=== PATIENT | female | born 1935 | race Caucasian/White ===

== ENCOUNTER 2021-10-24 13:05 | Inpatient (IN) ==
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
[2021-10-24] MEDS ORDERED: diphenhydrAMINE 50 MG/ML VIAL IV PRN (14:39)
[2021-10-24] MEDS ORDERED: methylPREDNISolone SOD SUCC 40 MG/ML VIAL IV PRN (14:39)
[2021-10-24] MEDS ORDERED: ALBUTEROL SULFATE 200 PUFF INHALER INH PRN (14:39)
[2021-10-24] MEDS ORDERED: EPINEPHrine 1 MG/ML AMPUL SQ PRN (14:39)
[2021-10-24] MEDS ORDERED: CASIRIVIMAB/IMDEVIMAB 10 ML in 0.9 % SODIUM CHLORIDE 50 ML IV SCH (14:45)
[2021-10-24 14:50] LABS: Basophils # (Auto) 0.01 K/mcL (0.00-0.30); Basophils % (Auto) 0.2 % (0.0-2.0); Eosinophils # (Auto) 0.06 K/mcL (0.00-0.70); Hematocrit 34.5 % (34.1-44.9); Hemoglobin 10.8 g/dL (11.2-15.7); Lymphocytes % (Auto) 22.7 % (15.5-49.0); Mean Cell Volume 88.2 fL (80.0-100.0); Mean Corpuscular HGB Conc 31.3 g/dL (31.0-36.0); Mean Platelet Volume 10.6 fL (7.4-10.4); Monocytes # (Auto) 0.34 K/mcL (0.10-0.90); Monocytes % (Auto) 5.9 % (1.0-12.0); Neutrophils % (Auto) 70.2 % (38.0-78.0); Platelet Count 279 K/mcL (140-440); RBC 3.91 M/mcL (3.59-5.38); Red Cell Distribution Width 15.9 % (11.5-14.5); WBC 5.7 K/mcL (4.5-11.0)
--- NOTE | 2021-10-24 15:15 | XRay Report ---
HISTORY: Short of breath, stage IV colon cancer, smoker, cough FINDINGS: Subtle increased interstitial lung markings are present in both lower lobes. This may be residual inflammation or mild pulmonary fibrosis. The moderate diffuse alveolar infiltrates seen in both lungs on the recent chest x-ray done on 10/13/21 have otherwise resolved. There is no evidence of an underlying mass. No congestive heart failure or pleural effusion are present. The heart size is normal and appears smaller today. There is a Port-A-Cath placed through the left internal jugular vein into the superior vena cava. There is no widening of the mediastinum. No adenopathy is detected IMPRESSION: Near complete resolution of previously seen bilateral infiltrates with residual minor inflammation or fibrosis in both lung bases No evidence of metastasis Interpreted and Authenticated by: Bernabe Prieto 10/24/21
[2021-10-24 15:19] LABS: ALT/SGPT < 5 U/L (<40); AST/SGOT 23 U/L (<32); Albumin 2.8 gm/dL (3.2-5.2); Albumin/Globulin Ratio 0.9 (1.0-2.3); Alkaline Phosphatase 118 U/L (39-117); Bilirubin,Total 0.2 mg/dL (0.1-1.0); Blood Urea Nitrogen 18 mg/dL (8-23); Calcium 8.5 mg/dL (8.6-10.4); Carbon Dioxide 24 mmol/L (22-30); Chloride 100 mmol/L (96-108); Globulin 3.1 gm/dL (2.2-3.7); Glomerular Filtration Rate 38; Glucose 111 mg/dL (70-105)
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
[2021-10-24] MEDS ORDERED: ZOLPIDEM 5 MG TABLET PO PRN (20:02)
[2021-10-24] MEDS ORDERED: ONDANSETRON 4 MG/2 ML VIAL IV PRN (20:02)
[2021-10-24] MEDS ORDERED: REMDESIVIR 200 MG in 0.9 % SODIUM CHLORIDE 250 ML IV ONE (20:02)
[2021-10-24] MEDS ORDERED: cefTRIAXone 1 GM in DEXTROSE 5% IN WATER 50 ML IV SCH (20:02)
[2021-10-24] MEDS ORDERED: DEXTROSE 50% 50 ML VIAL IV PRN (20:02)
[2021-10-24] MEDS ORDERED: DEXTROSE 31 GM ORAL.SUSP PO PRN (20:02)
[2021-10-24] MEDS ORDERED: FENTANYL 25 MCG/HR TRANSDERMA SCH (20:02)
[2021-10-24] MEDS ORDERED: IPRATROPIUM/ALBUTEROL 3 ML AMPUL.NEB NEB PRN (20:02)
[2021-10-24 20:14] LABS: Appearance,Urine CLEAR (Clear); Bilirubin,Urine Negative (Negative); Color,Urine STRAW; Culture Indicated,Urine No; Glucose,Urine (UA) Negative (Negative); Ketones,Urine Negative (Negative); Leukocyte Esterase,Urine Negative /uL (Negative); Nitrate,Urine Negative (Negative); Protein,Urine Negative (Negative); Specific Gravity,Urine 1.003 (1.000-1.035); Urine Blood Negative (Negative); Urobilinogen,Urine Negative
[2021-10-24 20:31] LABS: C-Reactive Protein 7.9 mg/dL (0.03-0.80)
[2021-10-24 20:42] LABS: Ferritin 78.6 ng/mL (30.0-400.0)
[2021-10-24] MEDS ORDERED: [UNRECOGNIZED DRUG - REMARK] INTRANASAL SCH (21:00)
[2021-10-24] MEDS ORDERED: cefTRIAXone 1 GM VIAL IV ONE (21:00)
[2021-10-24 21:03] LABS: INR 1.1 (0.9-1.1); Prothrombin Time 14.2 sec (11.9-14.5)
[2021-10-24] MEDS: 0.9 % SODIUM CHLORIDE 10 ML SYRINGE IV SCH (21:45)
[2021-10-24] MEDS: INSULIN LISPRO 1 UNIT/0.01 ML UNIT SQ SCH ×2 (22:12→22:13)
[2021-10-24] MEDS: INSULIN 70/30, HUMAN 1 UNIT/0.01 ML UNIT SQ SCH (22:13)
[2021-10-24] MEDS: HEPARIN 5,000 UNIT/ML VIAL SQ SCH (22:13)
[2021-10-24 22:32] LABS: Hemoglobin A1C 11.8 % Hgb (4.0-6.0)
[2021-10-24] MEDS: CARBIDOPA/LEVODOPA 25/100 TABLET PO SCH (22:43)
[2021-10-24] MEDS: COLCHICINE 0.6 MG CAPSULE PO SCH (22:43)
[2021-10-24] MEDS: PRAZOSIN 1 MG CAPSULE PO SCH (22:43)
[2021-10-24] MEDS: PRAMIPEXOLE 1 MG TABLET PO SCH (22:44)
[2021-10-24] MEDS: SENNOSIDES 1 TABLET PO SCH (22:44)
[2021-10-24] MEDS: DOCUSATE SODIUM 100 MG CAPSULE PO SCH (22:44)
[2021-10-24] MEDS: METHOCARBAMOL 500 MG TABLET PO PRN (22:44)
[2021-10-24] MEDS: NICOTINE 14 MG PATCH TOPICAL SCH (22:45)
[2021-10-24] MEDS: CLOTRIMAZOLE CRM 1% 1 DOSE TUBE TOPICAL SCH (22:46)
[2021-10-24] MEDS: POTASSIUM CHLORIDE 20 MEQ TABLET PO SCH (22:46)
[2021-10-25] MEDS: 0.9 % SODIUM CHLORIDE 10 ML SYRINGE IV SCH ×3 (04:18→20:14)
[2021-10-25 06:47] LABS: Basophils # (Auto) 0.01 K/mcL (0.00-0.30); Basophils % (Auto) 0.2 % (0.0-2.0); Eosinophils # (Auto) 0 K/mcL (0.00-0.70); Eosinophils % (Auto) 0 % (0.0-7.0); Hematocrit 35.7 % (34.1-44.9); Hemoglobin 10.7 g/dL (11.2-15.7); Lymphocytes # (Auto) 0.56 K/mcL (1.50-4.80); Lymphocytes % (Auto) 13.6 % (15.5-49.0); Mean Cell Volume 90.2 fL (80.0-100.0); Mean Platelet Volume 10.9 fL (7.4-10.4); Monocytes # (Auto) 0.13 K/mcL (0.10-0.90); Monocytes % (Auto) 3.1 % (1.0-12.0); Neutrophils % (Auto) 83.1 % (38.0-78.0); Platelet Count 271 K/mcL (140-440); RBC 3.96 M/mcL (3.59-5.38); Red Cell Distribution Width 15.6 % (11.5-14.5); WBC 4.1 K/mcL (4.5-11.0)
[2021-10-25 07:02] LABS: ALT/SGPT < 5 U/L (<40); AST/SGOT 22 U/L (<32); Albumin 2.5 gm/dL (3.2-5.2); Albumin/Globulin Ratio 0.8 (1.0-2.3); Alkaline Phosphatase 111 U/L (39-117); Bilirubin,Total < 0.2 mg/dL (0.1-1.0); Blood Urea Nitrogen 20 mg/dL (8-23); Calcium 8.3 mg/dL (8.6-10.4); Carbon Dioxide 24 mmol/L (22-30); Chloride 97 mmol/L (96-108); Globulin 3.2 gm/dL (2.2-3.7); Glomerular Filtration Rate 46; Glucose 341 mg/dL (70-105); Phosphorous 4.1 mg/dL (2.5-4.5)
[2021-10-25] MEDS: OMEPRAZOLE 20 MG CAPSULE PO SCH (07:09)
[2021-10-25] MEDS: POTASSIUM CHLORIDE 20 MEQ TABLET PO SCH ×2 (07:09→17:39)
[2021-10-25] MEDS: INSULIN LISPRO 1 UNIT/0.01 ML UNIT SQ SCH ×4 (07:09→20:15)
[2021-10-25] MEDS: INSULIN 70/30, HUMAN 1 UNIT/0.01 ML UNIT SQ SCH (07:10)
[2021-10-25] MEDS: cefTRIAXone 1 GM VIAL IV SCH (09:13)
[2021-10-25] MEDS: DEXAMETHASONE 4 MG TABLET PO SCH (09:13)
[2021-10-25] MEDS: HEPARIN 5,000 UNIT/ML VIAL SQ SCH ×2 (09:13→20:13)
[2021-10-25] MEDS: ALLOPURINOL 300 MG TABLET PO SCH (09:14)
[2021-10-25] MEDS: ESCITALOPRAM 20 MG TABLET PO SCH (09:14)
[2021-10-25] MEDS: COLCHICINE 0.6 MG CAPSULE PO SCH ×2 (09:14→20:10)
[2021-10-25] MEDS: TORSEMIDE 10 MG TABLET PO SCH (09:14)
[2021-10-25] MEDS: LEVOTHYROXINE 25 MCG TABLET PO SCH (09:14)
[2021-10-25] MEDS: LORATADINE 10 MG TABLET PO SCH (09:14)
[2021-10-25] MEDS: SIMVASTATIN 10 MG TABLET PO SCH (09:15)
[2021-10-25] MEDS: MULTIVIT,THER IRON,CA,FA & MIN 1 TABLET PO SCH (09:16)
[2021-10-25] MEDS: FLUTICASONE PROPIONATE SPRAY.NAS NS SCH (09:16)
[2021-10-25] MEDS: ASPIRIN 81 MG TAB.CHEW PO SCH (09:16)
[2021-10-25] MEDS: hydrALAZINE 25 MG TABLET PO SCH (09:16)
[2021-10-25] MEDS: DOCUSATE SODIUM 100 MG CAPSULE PO SCH ×2 (09:16→20:09)
[2021-10-25] MEDS: MUPIROCIN OINT 2% 22GM TOPICAL SCH (09:16)
[2021-10-25] MEDS: CARBIDOPA/LEVODOPA 25/100 TABLET PO SCH ×3 (09:16→20:09)
[2021-10-25] MEDS: LISINOPRIL 5 MG TABLET PO SCH (09:16)
[2021-10-25] MEDS: CLOTRIMAZOLE CRM 1% 1 DOSE TUBE TOPICAL SCH ×2 (09:16→20:15)
[2021-10-25] MEDS ORDERED: DEXTROSE 31 GM ORAL.SUSP PO PRN (11:44)
[2021-10-25] MEDS ORDERED: DEXTROSE 50% 50 ML VIAL IV PRN (11:44)
[2021-10-25] MEDS ORDERED: PRAMIPEXOLE 1 MG TABLET PO SCH (11:45)
--- NOTE | 2021-10-25 12:38 | Internal Med Progress Note ---
SUBJECTIVE Subjective Patient information: Note initiated : 10/25/21 at 12:32 pm Service Date, if different from initiated Date: [] Patient: Patsy Lam a 86 y/o F admitted on 10/24/21 for cough, fatigue,weakness, SOB. Chief Complaint: [] Interval history: Ms. Cherie Paula is a 86 year old F h/o stage IV colon cancer, T2DM, CHF , CKD3, JANET on CPAP, Parkinson's Disease, Gout, essential HTN, hypothyroidism, current cigarette smoking status, p/w 5 days history of shaking chills, runny nose, shortness of breath, and productive cough with clear sputum. She is vaccinated against CoVID pneumonia. She was in her usual state of health until 5 days ago when she started to experience shaking chills, runny nose, shortness of breath, and productive cough with clear sputum. In addition, she is complaining of dysuria and increased urinary frequency. Vital signs significant for oxygen desaturating to mid 80s on room air, with rest of the vital signs within normal limits. Labs significant for lack of leukocytosis with WBC 5.7. Serum Cr level 1.3, baseline 1.2. CXR showing near complete resolution of previously seen bilateral infiltrates with residual minor inflammation or fibrosis in both lung bases. 10/25: Afebrile overnight. Blood and urine cultures no growth to date. Currently on 3.5L/min oxygen. c/o improving SOB. c/o productive cough with white sputum. Denies chest pain. Denies wheezing. Denies fever, chills, or sweating. Denies anxiety. Denies dysuruia. Constitutional Vitals: Vital Signs Temp Pulse Resp BP Pulse Ox 36.2 C 57 L 17 157/78 95 10/25/21 11:40 10/25/21 11:40 10/25/21 11:40 10/25/21 11:40 10/25/21 11:40 Period Temp Pulse Resp BP Sys/Simmons Pulse Ox Last 24 Hr 36.0 C-37.0 C 57-81 16-20 96-163/46-82 84-98 Intake and Output 10/24/21 10/25/21 10/25/21 21:59 05:59 13:59 Intake Total 1000 1200 Output Total 1200 300 Balance -200 900 Weight 111.3 kg Intake & Output: Intake & Output 10/24/21 10/25/21 10/25/21 21:59 05:59 13:59 Intake Total 1000 1200 Output Total 1200 300 Balance -200 900 Weight 111.3 kg Intake: Oral 1000 1200 Output: Void Amount 1200 300 Other: Meal Breakfast Percent of Meal Consumed 100% Feeding Ability Independent Urine Appearance Clear Urine Color Bright Yellow Dark Yellow Urine Odor Normal Normal Stool Size Moderate Stool Color Brown Stool Consistency Formed # Bowel Movements 1 General appearance: cooperative, no acute distress and obese Head Head exam: Present atraumatic and normal inspection Eye Eye exam: Present normal appearance ENT ENT exam: Present mucous membranes moist, normal exam and normal external ear exam Additional comments: Nasal cannula in place Neck Neck exam: Present normal inspection Respiratory Respiratory exam: Present decreased breath sounds and rhonchi Cardiovascular Cardiovascular exam: Present normal rate and rhythm GI/Abdominal GI/Abdominal exam: Present normal bowel sounds Back Exam Back exam: Present normal inspection Neurological Exam Neurological exam: Present alert and oriented X3 Skin Skin exam: Present intact and warm OBJ DATA Labs CBC & Chem 7: 10/25/21 05:24 10/25/21 05:24 Labs: Abnormal Lab Results 10/25/21 10/25/21 10/24/21 05:24 05:24 14:23 WBC 4.1 L Hgb 10.7 L MCHC 30.0 L RDW 15.6 H MPV 10.9 H Neut % (Auto) 83.1 H Lymph % (Auto) 13.6 L Lymph # (Auto) 0.56 L Fibrinogen D-Dimer Creatinine Glucose 341 H Hemoglobin A1c 11.8 H Calcium 8.3 L Alkaline Phosphatase Lactate Dehydrogenase 256 H C-Reactive Protein 7.90 H Total Protein 5.7 L Albumin 2.5 L Albumin/Globulin Ratio 0.8 L 10/24/21 10/24/21 10/24/21 14:23 14:23 14:23 WBC Hgb 10.8 L MCHC RDW 15.9 H MPV 10.6 H Neut % (Auto) Lymph % (Auto) Lymph # (Auto) 1.30 L Fibrinogen 623 H D-Dimer 1.37 H Creatinine 1.3 H Glucose 111 H Hemoglobin A1c Calcium 8.5 L Alkaline Phosphatase 118 H Lactate Dehydrogenase C-Reactive Protein Total Protein Albumin 2.8 L Albumin/Globulin Ratio 0.9 L Meds: Medications Acetaminophen (Acetaminophen 325 Mg Tablet) 650 mg PO Q6HP PRN; Protocol PRN Reason: Per Pain Protocol/Fever > 101 Albuterol/Ipratropium (Ipratropium/Albuterol 3 Ml Ampul.Neb) 3 ml NEB Q4HRT PRN PRN Reason: Wheezing Allopurinol (Allopurinol 300 Mg Tablet) 300 mg PO QDAY [facility] Last Admin: 10/25/21 09:14 Dose: 300 mg Documented by: Aspirin (Aspirin 81 Mg Tab.Chew) 81 mg PO DAILY [facility] Last Admin: 10/25/21 09:16 Dose: 81 mg Documented by: Carbidopa/Levodopa (Carbidopa/Levodopa 25/100 Tablet) 1 tab PO TID [facility] Last Admin: 10/25/21 09:16 Dose: 1 tab Documented by: Ceftriaxone Sodium (Ceftriaxone 1 Gm Vial) 1 gm IV DAILY [facility] Last Admin: 10/25/21 09:13 Dose: 1 gm Documented by: Clotrimazole (Clotrimazole Crm 1% 1 Dose Tube) 1 dose TOPICAL BID [facility] Last Admin: 10/25/21 09:16 Dose: Not Given Documented by: Colchicine (Colchicine 0.6 Mg Capsule) 0.6 mg PO BID [facility] Last Admin: 10/25/21 09:14 Dose: 0.6 mg Documented by: Dexamethasone (Dexamethasone 4 Mg Tablet) 6 mg PO DAILY [facility] Last Admin: 10/25/21 09:13 Dose: 6 mg Documented by: Dextrose (Dextrose 50% 50 Ml Vial) 0 ml IV UD PRN PRN Reason: Hypoglycemia Diagnostic Test (Pha) (Accu-Chek 1 Each Strip) 1 each FS ACHS [facility] Last Admin: 10/25/21 11:57 Dose: 1 each Documented by: Docusate Sodium (Docusate Sodium 100 Mg Capsule) 100 mg PO BID [facility] Last Admin: 10/25/21 09:16 Dose: 100 mg Documented by: Escitalopram Oxalate (Escitalopram 20 Mg Tablet) 20 mg PO QDAY [facility] Last Admin: 10/25/21 09:14 Dose: 20 mg Documented by: Fluticasone Propionate (Fluticasone Propionate [place].Jose Raul) 2 spray NS QDAY [facility] Last Admin: 10/25/21 09:16 Dose: Not Given Documented by: Glucose (Dextrose 31 Gm Oral.Susp) 15 gm PO PRN PRN PRN Reason: Hypoglycemia Guaifenesin (Guaifenesin/Dextromethorphan Oral Honey) 10 ml PO Q4HP PRN PRN Reason: Cough Heparin Sodium (Porcine) (Heparin 5,000 Unit/Ml Vial) 5,000 unit SQ Q12 [facility] Last Admin: 10/25/21 09:13 Dose: 5,000 unit Documented by: Hydralazine HCl (Hydralazine 25 Mg Tablet) 25 mg PO QDAY [facility] Last Admin: 10/25/21 09:16 Dose: 25 mg Documented by: REMDESIVIR 100 mg/ Sodium (Chloride) 250 mls @ 500 mls/hr IV DAILY@1400 [facility] Stop: 10/28/21 14:29 Insulin Human Lispro (Insulin Lispro 1 Unit/0.01 Ml Unit) 0 unit SQ ACHS [facility]; Protocol Insulin Lispro Protam/Lispro Human (Insulin, 75/25 Npl/Lispro 1 Unit/0.01 Ml Unit) 25 unit SQ BIDAC [facility] Iron Carb/Multivit/[place]/Folic Acid (Multivit,Ther Iron,Ca,Fa & Min 1 Tablet) 1 tab PO DAILY [facility] Last Admin: 10/25/21 09:16 Dose: 1 tab Documented by: Levothyroxine Sodium (Levothyroxine 25 Mcg Tablet) 12.5 mcg PO QAMAC [facility] Last Admin: 10/25/21 09:14 Dose: 12.5 mcg Documented by: Lisinopril (Lisinopril 5 Mg Tablet) 5 mg PO QDAY [facility] Last Admin: 10/25/21 09:16 Dose: 5 mg Documented by: Loratadine (Loratadine 10 Mg Tablet) 10 mg PO QDAY [facility] Last Admin: 10/25/21 09:14 Dose: 10 mg Documented by: Methocarbamol (Methocarbamol 500 Mg Tablet) 500 mg PO Q8HP PRN PRN Reason: neck pain Last Admin: 10/24/21 22:44 Dose: 500 mg Documented by: Mupirocin (Mupirocin Oint 2% 22gm) 1 dose TOPICAL QDAY [facility] Last Admin: 10/25/21 09:16 Dose: Not Given Documented by: Nicotine (Nicotine 14 Mg Patch) 1 mg TOPICAL Q24H [facility] Last Admin: 10/24/21 22:45 Dose: Not Given Documented by: Omeprazole (Omeprazole 20 Mg Capsule) 20 mg PO ACB [facility] Last Admin: 10/25/21 07:09 Dose: 20 mg Documented by: Ondansetron HCl (Ondansetron 4 Mg/2 Ml Vial) 4 mg IV Q6HP PRN PRN Reason: Nausea And Vomiting Potassium Chloride (Potassium Chloride 20 Meq Tablet) 20 meq PO BIDCC [facility] Last Admin: 10/25/21 07:09 Dose: 20 meq Documented by: Pramipexole Dihydrochloride (Pramipexole 1 Mg Tablet) 1 mg PO [facility] Last Admin: 10/24/21 22:44 Dose: 1 mg Documented by: Prazosin HCl (Prazosin 1 Mg Capsule) 2 mg PO [facility] Last Admin: 10/24/21 22:43 Dose: 2 mg Documented by: Senna (Sennosides 1 Tablet) 2 tab PO [facility] Last Admin: 10/24/21 22:44 Dose: 2 tab Documented by: Simvastatin (Simvastatin 10 Mg Tablet) 5 mg PO QDAY [facility] Last Admin: 10/25/21 09:15 Dose: 5 mg Documented by: Sodium Chloride (0.9 % Sodium Chloride 10 Ml Syringe) 10 ml IV Q8 [facility] Last Admin: 10/25/21 04:18 Dose: 10 ml Documented by: Torsemide (Torsemide 10 Mg Tablet) 100 mg PO DAILY [facility] Last Admin: 10/25/21 09:14 Dose: 100 mg Documented by: Zolpidem Tartrate (Zolpidem 5 Mg Tablet) 5 mg PO HSP PRN PRN Reason: Insomnia A/P Assessment and plan (1) Pneumonia due to COVID-19 virus: Status: Acute (2) CHF (congestive heart failure): Status: Chronic Qualifiers: Heart failure type: unspecified Heart failure chronicity: chronic Qualified Code(s): I50.9 - Heart failure, unspecified (3) Hypertension: Status: Chronic Qualifiers: Hypertension type: essential hypertension Qualified Code(s): I10 - Essential (primary) hypertension (4) Hypothyroidism: Status: Chronic Qualifiers: Hypothyroidism type: unspecified Qualified Code(s): E03.9 - Hypothyroidism, unspecified (5) Hyperlipidemia: Status: Chronic (6) Sleep apnea: Status: Chronic (7) Gout: Status: Chronic Qualifiers: Gout site: toe Gout etiology: unspecified cause Chronicity: acute Laterality: right Qualified Code(s): M10.9 - Gout, unspecified (8) Stage 3 chronic kidney disease: Status: Chronic Qualifiers: Chronic kidney disease stage 3 subtype: unspecified whether 3a or 3b Qualified Code(s): N18.30 - Chronic kidney disease, stage 3 unspecified (9) Restless leg syndrome: Status: Chronic (10) Diabetes mellitus with neuropathy: Status: Chronic Qualifiers: Diabetes mellitus type: type 2 Diabetes mellitus snf insulin use: with snf use Qualified Code(s): E11.40 - Type 2 diabetes mellitus with diabetic neuropathy, unspecified; Z79.4 - roasterman (current) use of insulin (11) Metastatic adenocarcinoma: Status: Chronic (12) Adenocarcinoma of cecum: Status: Chronic (13) Tobacco dependence: Status: Acute (14) Parkinson's disease: Status: Acute (15) CPAP (continuous positive airway pressure) dependence: Status: Acute (16) UTI (urinary tract infection): Status: Acute (17) Anemia, normocytic normochromic: Status: Acute Narrative A/P Narrative: Assessment and Plans: 1. CoVID pneumonia: Stays in inpatient med surg telemetry Isolation: airborne and contact Supplemental oxygen therapy titrate to achieve spo2>=92%, currently on 3.5L/min Lactic acid Inflammatory markers cbc w/ auto diff in the morning to trend WBC Blood culture Remdesivir Dexamethasone Torsemide Heparin Robitussin DM PRN cough DuoNEB NEB PRN wheezing Tylenol PRN cough Proning 16 hour/day as tolerated 2. UTI: Lactic acid UA reflexive urine culture, no growth to date Blood culture, no growth to date cbc w/ auto diff in the morning to trend WBC Rocephin Tylenol PRN cough 3. Stage IV colon cancer: Outpatient f/u with oncologist 4. h/o CHF: Continue Torsemide 5. T2DM: HgA1c 11.8 Hold oral hypoglycemics Insulin 70/30 25 unit SQ BID High dose correctional scale insulin AC HS for better glycemic coverage Accu Chek AC HS Hypoglycemia protocol Diabetic diet 6. Essential HTN: Currently normotensive Continue home regimen of oral antihypertensives 7. Hypothyroidism: Continue oral thyroid replacement therapy 8. CKD stage 3: Baseline serum Cr level 1.2, currently at 1.1 Avoid nephrotoxic agents Saline lock CMP in the morning to trend kidney functions 9. Parkinson's Disease: Continue Sinemet 10. Current cigarette smoker: [employer] patient on quitting cigarette smoking; Nicotine replacement therapy 11. JANET: Continue CPAP at night while patient is sleeping 12. Anemia, normocytic normochromic: cbc w/ auto diff in the morning to trend H/H GI ppx: continue oral PPI from home regimen DVT ppx: Heparin Code status: DNI Prognosis: guarded Disposition: inpatient med surg telemetry Time Spent With Patient Time: Total time spent is greater than 50% in coordination of care (as documented) at patient's floor/unit and/or counseling patient: Total time spent with greater than 50% in coordination of care (as documented) at patient's floor/unit and/or counseling patient:: Greater than 35 minutes QUALITY VTE Deep Vein Thrombosis/Pulmonary Embolism Present on Admission: No
[2021-10-25] MEDS: guaiFENesin/DEXTROMETHORPHAN ORAL SOL PO PRN (14:19)
[2021-10-25] MEDS: REMDESIVIR 100 MG in 0.9 % SODIUM CHLORIDE 250 ML IV SCH (14:20)
[2021-10-25] MEDS ORDERED: CARBIDOPA/LEVODOPA 25/100 TABLET PO SCH (15:00)
[2021-10-25] MEDS: ACETAMINOPHEN 325 MG TABLET PO PRN ×2 (16:40→23:01)
[2021-10-25] MEDS: INSULIN, 75/25 NPL/LISPRO 1 UNIT/0.01 ML UNIT SQ SCH (17:39)
[2021-10-25] MEDS: PRAZOSIN 1 MG CAPSULE PO SCH (20:12)
[2021-10-25] MEDS: METHOCARBAMOL 500 MG TABLET PO PRN (20:14)
[2021-10-25] MEDS: PRAMIPEXOLE 1 MG TABLET PO SCH (20:14)
[2021-10-25] MEDS: NICOTINE 14 MG PATCH TOPICAL SCH (20:15)
[2021-10-25] MEDS: SENNOSIDES 1 TABLET PO SCH (20:15)
[2021-10-25] MEDS ORDERED: PRAZOSIN 2 MG CAPSULE PO SCH (21:00)
[2021-10-25] MEDS ORDERED: NON FORMULARY MEDICATION 1 DOSE MISCELL (Potassium Chloride 20 mEq tablet extended release PO SCH (21:00)
[2021-10-26] MEDS: 0.9 % SODIUM CHLORIDE 10 ML SYRINGE IV SCH ×4 (04:43→20:22)
[2021-10-26 07:02] LABS: Basophils # (Auto) 0.01 K/mcL (0.00-0.30); Basophils % (Auto) 0.1 % (0.0-2.0); Eosinophils # (Auto) 0 K/mcL (0.00-0.70); Eosinophils % (Auto) 0 % (0.0-7.0); Hematocrit 34.8 % (34.1-44.9); Hemoglobin 10.8 g/dL (11.2-15.7); Lymphocytes # (Auto) 0.83 K/mcL (1.50-4.80); Lymphocytes % (Auto) 12.4 % (15.5-49.0); Mean Cell Volume 88.8 fL (80.0-100.0); Mean Platelet Volume 10.7 fL (7.4-10.4); Monocytes # (Auto) 0.37 K/mcL (0.10-0.90); Monocytes % (Auto) 5.5 % (1.0-12.0); Platelet Count 292 K/mcL (140-440); RBC 3.92 M/mcL (3.59-5.38); Red Cell Distribution Width 15.5 % (11.5-14.5); WBC 6.7 K/mcL (4.5-11.0)
[2021-10-26] MEDS: LEVOTHYROXINE 25 MCG TABLET PO SCH (07:11)
[2021-10-26] MEDS: guaiFENesin/DEXTROMETHORPHAN ORAL SOL PO PRN ×2 (07:12→22:53)
[2021-10-26] MEDS: OMEPRAZOLE 20 MG CAPSULE PO SCH (07:12)
[2021-10-26] MEDS: INSULIN, 75/25 NPL/LISPRO 1 UNIT/0.01 ML UNIT SQ SCH ×2 (07:13→16:52)
[2021-10-26] MEDS: INSULIN LISPRO 1 UNIT/0.01 ML UNIT SQ SCH ×4 (07:13→20:21)
[2021-10-26 07:20] LABS: ALT/SGPT 5 U/L (<40); AST/SGOT 21 U/L (<32); Albumin 2.4 gm/dL (3.2-5.2); Albumin/Globulin Ratio 0.8 (1.0-2.3); Alkaline Phosphatase 100 U/L (39-117); Bilirubin,Total < 0.2 mg/dL (0.1-1.0); Blood Urea Nitrogen 30 mg/dL (8-23); Calcium 8.4 mg/dL (8.6-10.4); Carbon Dioxide 26 mmol/L (22-30); Chloride 98 mmol/L (96-108); Globulin 3.2 gm/dL (2.2-3.7); Glomerular Filtration Rate 52; Glucose 167 mg/dL (70-105)
[2021-10-26] MEDS ORDERED: NON FORMULARY MEDICATION 1 DOSE MISCELL (Multivitamin tablet) PO SCH (09:00)
[2021-10-26] MEDS ORDERED: OMEPRAZOLE 20 MG CAPSULE PO SCH (09:00)
[2021-10-26] MEDS ORDERED: TORSEMIDE 20 MG TABLET PO SCH (09:00)
[2021-10-26] MEDS ORDERED: LEVOTHYROXINE PO SCH (09:00)
[2021-10-26] MEDS ORDERED: hydrALAZINE 25 MG TABLET PO SCH (09:00)
[2021-10-26] MEDS ORDERED: LORATADINE 10 MG TABLET PO SCH (09:00)
[2021-10-26] MEDS ORDERED: SIMVASTATIN 5 MG PO SCH (09:00)
[2021-10-26] MEDS: cefTRIAXone 1 GM VIAL IV SCH (09:18)
[2021-10-26] MEDS: TORSEMIDE 10 MG TABLET PO SCH (09:18)
[2021-10-26] MEDS: HEPARIN 5,000 UNIT/ML VIAL SQ SCH (09:18)
[2021-10-26] MEDS: COLCHICINE 0.6 MG CAPSULE PO SCH ×2 (09:19→20:19)
[2021-10-26] MEDS: hydrALAZINE 25 MG TABLET PO SCH (09:19)
[2021-10-26] MEDS: ALLOPURINOL 300 MG TABLET PO SCH (09:19)
[2021-10-26] MEDS: SIMVASTATIN 10 MG TABLET PO SCH (09:19)
[2021-10-26] MEDS: POTASSIUM CHLORIDE 20 MEQ TABLET PO SCH ×2 (09:19→16:53)
[2021-10-26] MEDS: LISINOPRIL 5 MG TABLET PO SCH (09:19)
[2021-10-26] MEDS: LORATADINE 10 MG TABLET PO SCH (09:19)
[2021-10-26] MEDS: DEXAMETHASONE 4 MG TABLET PO SCH (09:19)
[2021-10-26] MEDS: MULTIVIT,THER IRON,CA,FA & MIN 1 TABLET PO SCH (09:20)
[2021-10-26] MEDS: DOCUSATE SODIUM 100 MG CAPSULE PO SCH ×2 (09:20→20:19)
[2021-10-26] MEDS: CLOTRIMAZOLE CRM 1% 1 DOSE TUBE TOPICAL SCH ×2 (09:20→20:21)
[2021-10-26] MEDS: MUPIROCIN OINT 2% 22GM TOPICAL SCH (09:20)
[2021-10-26] MEDS: FLUTICASONE PROPIONATE SPRAY.NAS NS SCH (09:20)
[2021-10-26] MEDS: ESCITALOPRAM 20 MG TABLET PO SCH (09:20)
[2021-10-26] MEDS: CARBIDOPA/LEVODOPA 25/100 TABLET PO SCH ×3 (09:20→20:20)
[2021-10-26] MEDS: ASPIRIN 81 MG TAB.CHEW PO SCH (09:20)
--- NOTE | 2021-10-26 12:27 | Internal Med Progress Note ---
SUBJECTIVE Subjective Patient information: Note initiated : 10/26/21 at 12:23 pm Service Date, if different from initiated Date: [] Patient: Patsy Lam a 86 y/o F admitted on 10/24/21 for cough, fatigue,weakness, SOB. Chief Complaint: [] Interval history: Ms. Cherie Paula is a 86 year old F h/o stage IV colon cancer, T2DM, CHF , CKD3, JANET on CPAP, Parkinson's Disease, Gout, essential HTN, hypothyroidism, current cigarette smoking status, p/w 5 days history of shaking chills, runny nose, shortness of breath, and productive cough with clear sputum. She is vaccinated against CoVID pneumonia. She was in her usual state of health until 5 days ago when she started to experience shaking chills, runny nose, shortness of breath, and productive cough with clear sputum. In addition, she is complaining of dysuria and increased urinary frequency. Vital signs significant for oxygen desaturating to mid 80s on room air, with rest of the vital signs within normal limits. Labs significant for lack of leukocytosis with WBC 5.7. Serum Cr level 1.3, baseline 1.2. CXR showing near complete resolution of previously seen bilateral infiltrates with residual minor inflammation or fibrosis in both lung bases. 10/25: Afebrile overnight. Blood and urine cultures no growth to date. Currently on 3.5L/min oxygen. c/o improving SOB. c/o productive cough with white sputum. Denies chest pain. Denies wheezing. Denies fever, chills, or sweating. Denies anxiety. Denies dysuria. 10/26: Afebrile overnight. Blood culture: E faecalis; Urine culture no growth to date. Currently on 3.5L/min oxygen. c/o improving SOB. c/o productive cough with white sputum. Denies chest pain. Denies wheezing. Denies fever, chills, or sweating. Denies anxiety. Denies dysuria. Constitutional Vitals: Vital Signs Temp Pulse Resp BP Pulse Ox 36.7 C 62 18 130/68 94 10/26/21 08:00 10/26/21 08:00 10/26/21 07:54 10/26/21 08:00 10/26/21 08:00 Period Temp Pulse Resp BP Sys/Simmons Pulse Ox Last 24 Hr 35.9 C-36.7 C 54-62 16-20 128-142/53-70 91-94 Intake and Output 10/25/21 10/26/21 10/26/21 21:59 05:59 13:59 Intake Total 700 800 Output Total 1275 1450 Balance -575 -650 Weight 111.3 kg Intake & Output: Intake & Output 10/25/21 10/26/21 10/26/21 21:59 05:59 13:59 Intake Total 700 800 Output Total 1275 1450 Balance -575 -650 Weight 111.3 kg Intake: IV 250 Veklury 100 mg In Sodium 250 Chloride 0.9% 250 ml @ 500 mls/ hr IV DAILY@1400 [facility] Rx#: [id number] Oral 450 800 Output: Void Amount 1275 1450 Other: Meal Lunch Percent of Meal Consumed 100% Feeding Ability Assist with Tray Set Up Urine Appearance Clear Urine Color Bright Yellow Straw Urine Odor Normal General appearance: cooperative, no acute distress and obese Head Head exam: Present atraumatic and normal inspection Eye Eye exam: Present normal appearance ENT ENT exam: Present mucous membranes moist, normal exam and normal external ear exam Additional comments: Nasal cannula in place Neck Neck exam: Present normal inspection Respiratory Respiratory exam: Present rhonchi; Absent normal respiratory exam Cardiovascular Cardiovascular exam: Present normal rate and rhythm GI/Abdominal GI/Abdominal exam: Present normal bowel sounds Back Exam Back exam: Present normal inspection Neurological Exam Neurological exam: Present alert and oriented X3 Skin Skin exam: Present intact and warm OBJ DATA Labs CBC & Chem 7: 10/26/21 06:03 10/26/21 06:03 Labs: Abnormal Lab Results 10/26/21 10/26/21 10/25/21 06:03 06:03 05:24 WBC Hgb 10.8 L MCHC RDW 15.5 H MPV 10.7 H Neut % (Auto) 82.0 H Lymph % (Auto) 12.4 L Lymph # (Auto) 0.83 L Fibrinogen D-Dimer BUN 30 H Creatinine Glucose 167 H 341 H Hemoglobin A1c Calcium 8.4 L 8.3 L Alkaline Phosphatase Lactate Dehydrogenase C-Reactive Protein Total Protein 5.6 L 5.7 L Albumin 2.4 L 2.5 L Albumin/Globulin Ratio 0.8 L 0.8 L 10/25/21 10/24/21 10/24/21 05:24 14:23 14:23 WBC 4.1 L Hgb 10.7 L MCHC 30.0 L RDW 15.6 H MPV 10.9 H Neut % (Auto) 83.1 H Lymph % (Auto) 13.6 L Lymph # (Auto) 0.56 L Fibrinogen 623 H D-Dimer 1.37 H BUN Creatinine Glucose Hemoglobin A1c 11.8 H Calcium Alkaline Phosphatase Lactate Dehydrogenase 256 H C-Reactive Protein 7.90 H Total Protein Albumin Albumin/Globulin Ratio 10/24/21 10/24/21 14:23 14:23 WBC Hgb 10.8 L MCHC RDW 15.9 H MPV 10.6 H Neut % (Auto) Lymph % (Auto) Lymph # (Auto) 1.30 L Fibrinogen D-Dimer BUN Creatinine 1.3 H Glucose 111 H Hemoglobin A1c Calcium 8.5 L Alkaline Phosphatase 118 H Lactate Dehydrogenase C-Reactive Protein Total Protein Albumin 2.8 L Albumin/Globulin Ratio 0.9 L Meds: Medications Acetaminophen (Acetaminophen 325 Mg Tablet) 650 mg PO Q6HP PRN; Protocol PRN Reason: Per Pain Protocol/Fever > 101 Last Admin: 10/25/21 23:01 Dose: 650 mg Documented by: Albuterol/Ipratropium (Ipratropium/Albuterol 3 Ml Ampul.Neb) 3 ml NEB Q4HRT PRN PRN Reason: Wheezing Allopurinol (Allopurinol 300 Mg Tablet) 300 mg PO QDAY [facility] Last Admin: 10/26/21 09:19 Dose: 300 mg Documented by: Aspirin (Aspirin 81 Mg Tab.Chew) 81 mg PO DAILY [facility] Last Admin: 10/26/21 09:20 Dose: 81 mg Documented by: Carbidopa/Levodopa (Carbidopa/Levodopa 25/100 Tablet) 1 tab PO TID [facility] Last Admin: 10/26/21 09:20 Dose: 1 tab Documented by: Ceftriaxone Sodium (Ceftriaxone 1 Gm Vial) 1 gm IV DAILY [facility] Last Admin: 10/26/21 09:18 Dose: 1 gm Documented by: Clotrimazole (Clotrimazole Crm 1% 1 Dose Tube) 1 dose TOPICAL BID [facility] Last Admin: 10/26/21 09:20 Dose: Not Given Documented by: Colchicine (Colchicine 0.6 Mg Capsule) 0.6 mg PO BID [facility] Last Admin: 10/26/21 09:19 Dose: 0.6 mg Documented by: Dexamethasone (Dexamethasone 4 Mg Tablet) 6 mg PO DAILY [facility] Last Admin: 10/26/21 09:19 Dose: 6 mg Documented by: Dextrose (Dextrose 50% 50 Ml Vial) 0 ml IV UD PRN PRN Reason: Hypoglycemia Diagnostic Test (Pha) (Accu-Chek 1 Each Strip) [address] [facility] Last Admin: 10/26/21 11:17 Dose: 1 each Documented by: Docusate Sodium (Docusate Sodium 100 Mg Capsule) 100 mg PO BID [facility] Last Admin: 10/26/21 09:20 Dose: 100 mg Documented by: Escitalopram Oxalate (Escitalopram 20 Mg Tablet) 20 mg PO QDAY [facility] Last Admin: 10/26/21 09:20 Dose: 20 mg Documented by: Fluticasone Propionate (Fluticasone Propionate [place].Jose Raul) 2 spray NS QDAY [facility] Last Admin: 10/26/21 09:20 Dose: Not Given Documented by: Glucose (Dextrose 31 Gm Oral.Susp) 15 gm PO PRN PRN PRN Reason: Hypoglycemia Guaifenesin (Guaifenesin/Dextromethorphan Oral Honey) 10 ml PO Q4HP PRN PRN Reason: Cough Last Admin: 10/26/21 07:12 Dose: 10 ml Documented by: Heparin Sodium (Porcine) (Heparin 5,000 Unit/Ml Vial) 5,000 unit SQ Q12 [facility] Last Admin: 10/26/21 09:18 Dose: 5,000 unit Documented by: Hydralazine HCl (Hydralazine 25 Mg Tablet) 25 mg PO QDAY [facility] Last Admin: 10/26/21 09:19 Dose: 25 mg Documented by: REMDESIVIR 100 mg/ Sodium (Chloride) 250 mls @ 500 mls/hr IV DAILY@1400 [facility] Stop: 10/28/21 14:29 Last Infusion: 10/25/21 15:10 Dose: Infused Documented by: Insulin Human Lispro (Insulin Lispro 1 Unit/0.01 Ml Unit) 0 unit SQ [facility]; Protocol Last Admin: 10/26/21 11:34 Dose: 12 units Documented by: Insulin Lispro Protam/Lispro Human (Insulin, 75/25 Npl/Lispro 1 Unit/0.01 Ml Unit) 25 unit SQ BIDAC [facility] Last Admin: 10/26/21 07:13 Dose: 25 units Documented by: Iron Carb/Multivit/[place]/Folic Acid (Multivit,Ther Iron,Ca,Fa & Min 1 Tablet) 1 tab PO DAILY [facility] Last Admin: 10/26/21 09:20 Dose: 1 tab Documented by: Levothyroxine Sodium (Levothyroxine 25 Mcg Tablet) 12.5 mcg PO QAMAC [facility] Last Admin: 10/26/21 07:11 Dose: 12.5 mcg Documented by: Lisinopril (Lisinopril 5 Mg Tablet) 5 mg PO QDAY [facility] Last Admin: 10/26/21 09:19 Dose: 5 mg Documented by: Loratadine (Loratadine 10 Mg Tablet) 10 mg PO QDAY [facility] Last Admin: 10/26/21 09:19 Dose: 10 mg Documented by: Methocarbamol (Methocarbamol 500 Mg Tablet) 500 mg PO Q8HP PRN PRN Reason: neck pain Last Admin: 10/25/21 20:14 Dose: 500 mg Documented by: Mupirocin (Mupirocin Oint 2% 22gm) 1 dose TOPICAL QDAY [facility] Last Admin: 10/26/21 09:20 Dose: Not Given Documented by: Nicotine (Nicotine 14 Mg Patch) 1 mg TOPICAL Q24H [facility] Last Admin: 10/25/21 20:15 Dose: Not Given Documented by: Omeprazole (Omeprazole 20 Mg Capsule) 20 mg PO ACB [facility] Last Admin: 10/26/21 07:12 Dose: 20 mg Documented by: Ondansetron HCl (Ondansetron 4 Mg/2 Ml Vial) 4 mg IV Q6HP PRN PRN Reason: Nausea And Vomiting Potassium Chloride (Potassium Chloride 20 Meq Tablet) 20 meq PO BIDCC [facility] Last Admin: 10/26/21 09:19 Dose: 20 meq Documented by: Pramipexole Dihydrochloride (Pramipexole 1 Mg Tablet) 1 mg PO [facility] Last Admin: 10/25/21 20:14 Dose: 1 mg Documented by: Prazosin HCl (Prazosin 1 Mg Capsule) 2 mg PO [facility] Last Admin: 10/25/21 20:12 Dose: 2 mg Documented by: Senna (Sennosides 1 Tablet) 2 tab PO [facility] Last Admin: 10/25/21 20:15 Dose: Not Given Documented by: Simvastatin (Simvastatin 10 Mg Tablet) 5 mg PO QDAY [facility] Last Admin: 10/26/21 09:19 Dose: 5 mg Documented by: Sodium Chloride (0.9 % Sodium Chloride 10 Ml Syringe) 10 ml IV Q8 [facility] Last Admin: 10/26/21 04:43 Dose: 10 ml Documented by: Torsemide (Torsemide 10 Mg Tablet) 100 mg PO DAILY [facility] Last Admin: 10/26/21 09:18 Dose: 100 mg Documented by: Zolpidem Tartrate (Zolpidem 5 Mg Tablet) 5 mg PO HSP PRN PRN Reason: Insomnia A/P Assessment and plan (1) Pneumonia due to COVID-19 virus: Status: Acute (2) CHF (congestive heart failure): Status: Chronic Qualifiers: Heart failure type: unspecified Heart failure chronicity: chronic Qualified Code(s): I50.9 - Heart failure, unspecified (3) Hypertension: Status: Chronic Qualifiers: Hypertension type: essential hypertension Qualified Code(s): I10 - Essential (primary) hypertension (4) Hypothyroidism: Status: Chronic Qualifiers: Hypothyroidism type: unspecified Qualified Code(s): E03.9 - Hypothyroidism, unspecified (5) Hyperlipidemia: Status: Chronic (6) Sleep apnea: Status: Chronic (7) Gout: Status: Chronic Qualifiers: Gout site: toe Gout etiology: unspecified cause Chronicity: acute Laterality: right Qualified Code(s): M10.9 - Gout, unspecified (8) Stage 3 chronic kidney disease: Status: Chronic Qualifiers: Chronic kidney disease stage 3 subtype: unspecified whether 3a or 3b Qualified Code(s): N18.30 - Chronic kidney disease, stage 3 unspecified (9) Restless leg syndrome: Status: Chronic (10) Diabetes mellitus with neuropathy: Status: Chronic Qualifiers: Diabetes mellitus type: type 2 Diabetes mellitus middle or intermediate school principal insulin use: with senior living use Qualified Code(s): E11.40 - Type 2 diabetes mellitus with diabetic neuropathy, unspecified; Z79.4 - middle or intermediate school principal (current) use of insulin (11) Metastatic adenocarcinoma: Status: Chronic (12) Adenocarcinoma of cecum: Status: Chronic (13) Tobacco dependence: Status: Acute (14) Parkinson's disease: Status: Acute (15) CPAP (continuous positive airway pressure) dependence: Status: Acute (16) UTI (urinary tract infection): Status: Acute (17) Anemia, normocytic normochromic: Status: Acute (18) Enterococcal bacteremia: Status: Acute Narrative A/P Narrative: Assessment and Plans: 1. CoVID pneumonia: Stays in inpatient med surg telemetry Isolation: airborne and contact Supplemental oxygen therapy titrate to achieve spo2>=92%, currently on 3.5L/min Lactic acid Inflammatory markers cbc w/ auto diff in the morning to trend WBC Blood culture growing E. faecalis Remdesivir Dexamethasone Torsemide Heparin Robitussin DM PRN cough DuoNEB NEB PRN wheezing Tylenol PRN cough Proning 16 hour/day as tolerated 2. UTI: Lactic acid UA reflexive urine culture, no growth to date Blood culture growing E. faecalis cbc w/ auto diff in the morning to trend WBC Rocephin Tylenol PRN cough 3. Stage IV colon cancer: Outpatient f/u with oncologist 4. h/o CHF: Continue Torsemide 5. T2DM: HgA1c 11.8 Hold oral hypoglycemics Insulin 70/30 25 unit SQ BID High dose correctional scale insulin AC HS for better glycemic coverage Accu Chek AC HS Hypoglycemia protocol Diabetic diet 6. Essential HTN: Currently normotensive Continue home regimen of oral antihypertensives 7. Hypothyroidism: Continue oral thyroid replacement therapy 8. CKD stage 3: Baseline serum Cr level 1.2, currently at 1.0 Avoid nephrotoxic agents Saline lock CMP in the morning to trend kidney functions 9. Parkinson's Disease: Continue Sinemet 10. Current cigarette smoker: [place] patient on quitting cigarette smoking; Nicotine replacement therapy 11. JANET: Continue CPAP at night while patient is sleeping 12. Anemia, normocytic normochromic: cbc w/ auto diff in the morning to trend H/H 13. E. faecalis bacteremia: Repeat blood culture on 10/27 2D echocardiogram to rule out endocarditis Rocephin Tylenol PRN fever cbc w/ auto diff in the morning to trend WBC level GI ppx: continue oral PPI from home regimen DVT ppx: Lovenox Code status: DNI Prognosis: guarded Disposition: inpatient med surg telemetry Time Spent With Patient Time: Total time spent is greater than 50% in coordination of care (as documented) at patient's floor/unit and/or counseling patient: Total time spent with greater than 50% in coordination of care (as documented) at patient's floor/unit and/or counseling patient:: Greater than 35 minutes QUALITY VTE Deep Vein Thrombosis/Pulmonary Embolism Present on Admission: No
[2021-10-26] MEDS: REMDESIVIR 100 MG in 0.9 % SODIUM CHLORIDE 250 ML IV SCH (14:35)
[2021-10-26] MEDS ORDERED: POLYETHYLENE GLYCOL 3350 17 GM PACKET PO PRN (14:52)
[2021-10-26] MEDS: METHOCARBAMOL 500 MG TABLET PO PRN ×2 (15:52→22:53)
[2021-10-26] MEDS: PRAMIPEXOLE 1 MG TABLET PO SCH (20:19)
[2021-10-26] MEDS: PRAZOSIN 1 MG CAPSULE PO SCH (20:20)
[2021-10-26] MEDS: NICOTINE 14 MG PATCH TOPICAL SCH (20:21)
[2021-10-26] MEDS: SENNOSIDES 1 TABLET PO SCH (20:22)
[2021-10-26] MEDS: ACETAMINOPHEN 325 MG TABLET PO PRN (22:52)
[2021-10-27] MEDS: 0.9 % SODIUM CHLORIDE 10 ML SYRINGE IV SCH ×5 (04:08→21:11)
[2021-10-27] MEDS: ACETAMINOPHEN 325 MG TABLET PO PRN ×2 (04:08→22:00)
[2021-10-27] MEDS: LEVOTHYROXINE 25 MCG TABLET PO SCH (07:08)
[2021-10-27] MEDS: OMEPRAZOLE 20 MG CAPSULE PO SCH (07:09)
[2021-10-27] MEDS: INSULIN LISPRO 1 UNIT/0.01 ML UNIT SQ SCH ×4 (07:12→21:07)
[2021-10-27 07:26] LABS: Basophils # (Auto) 0.01 K/mcL (0.00-0.30); Basophils % (Auto) 0.2 % (0.0-2.0); Eosinophils # (Auto) 0.01 K/mcL (0.00-0.70); Eosinophils % (Auto) 0.2 % (0.0-7.0); Hematocrit 35.5 % (34.1-44.9); Hemoglobin 11.3 g/dL (11.2-15.7); Lymphocytes # (Auto) 1.02 K/mcL (1.50-4.80); Lymphocytes % (Auto) 15.6 % (15.5-49.0); Mean Corpuscular HGB Conc 31.8 g/dL (31.0-36.0); Mean Platelet Volume 10.9 fL (7.4-10.4); Monocytes # (Auto) 0.36 K/mcL (0.10-0.90); Monocytes % (Auto) 5.5 % (1.0-12.0); Neutrophils % (Auto) 78.5 % (38.0-78.0); Platelet Count 306 K/mcL (140-440); RBC 4.08 M/mcL (3.59-5.38); Red Cell Distribution Width 15.2 % (11.5-14.5); WBC 6.5 K/mcL (4.5-11.0)
[2021-10-27 07:52] LABS: ALT/SGPT 8 U/L (<40); AST/SGOT 35 U/L (<32); Albumin 2.7 gm/dL (3.2-5.2); Albumin/Globulin Ratio 0.9 (1.0-2.3); Alkaline Phosphatase 101 U/L (39-117); Bilirubin,Total < 0.2 mg/dL (0.1-1.0); Blood Urea Nitrogen 32 mg/dL (8-23); Calcium 8.4 mg/dL (8.6-10.4); Carbon Dioxide 28 mmol/L (22-30); Chloride 96 mmol/L (96-108); Globulin 3.1 gm/dL (2.2-3.7); Glomerular Filtration Rate 52; Glucose 110 mg/dL (70-105); Phosphorous 3.4 mg/dL (2.5-4.5)
[2021-10-27] MEDS: POTASSIUM CHLORIDE 20 MEQ TABLET PO SCH ×2 (08:08→17:27)
[2021-10-27] MEDS: INSULIN, 75/25 NPL/LISPRO 1 UNIT/0.01 ML UNIT SQ SCH ×2 (08:08→17:45)
[2021-10-27] MEDS: TORSEMIDE 10 MG TABLET PO SCH (08:56)
[2021-10-27] MEDS: cefTRIAXone 1 GM VIAL IV SCH (08:56)
[2021-10-27] MEDS: DOCUSATE SODIUM 100 MG CAPSULE PO SCH ×2 (08:57→21:08)
[2021-10-27] MEDS: hydrALAZINE 25 MG TABLET PO SCH (08:57)
[2021-10-27] MEDS: LORATADINE 10 MG TABLET PO SCH (08:58)
[2021-10-27] MEDS: ESCITALOPRAM 20 MG TABLET PO SCH (08:58)
[2021-10-27] MEDS: MULTIVIT,THER IRON,CA,FA & MIN 1 TABLET PO SCH (08:58)
[2021-10-27] MEDS: DEXAMETHASONE 4 MG TABLET PO SCH (08:58)
[2021-10-27] MEDS: CARBIDOPA/LEVODOPA 25/100 TABLET PO SCH ×3 (08:59→21:09)
[2021-10-27] MEDS: SIMVASTATIN 10 MG TABLET PO SCH (08:59)
[2021-10-27] MEDS: ASPIRIN 81 MG TAB.CHEW PO SCH (08:59)
[2021-10-27] MEDS: ALLOPURINOL 300 MG TABLET PO SCH (09:00)
[2021-10-27] MEDS: LISINOPRIL 5 MG TABLET PO SCH (09:00)
[2021-10-27] MEDS: COLCHICINE 0.6 MG CAPSULE PO SCH ×2 (09:00→21:09)
[2021-10-27] MEDS: ENOXAPARIN 40 MG/0.4 ML SYRINGE SQ SCH (09:01)
[2021-10-27] MEDS: FLUTICASONE PROPIONATE SPRAY.NAS NS SCH (09:02)
[2021-10-27] MEDS: CLOTRIMAZOLE CRM 1% 1 DOSE TUBE TOPICAL SCH ×2 (09:02→21:10)
[2021-10-27] MEDS: MUPIROCIN OINT 2% 22GM TOPICAL SCH (09:02)
--- NOTE | 2021-10-27 12:10 | Internal Med Progress Note ---
SUBJECTIVE Subjective Patient information: Note initiated : 10/27/21 at 12:05 pm Service Date, if different from initiated Date: [] Patient: Patsy Lam a 86 y/o F admitted on 10/24/21 for cough, fatigue,weakness, SOB. Chief Complaint: [] Interval history: Ms. Cherie Paula is a 86 year old F h/o stage IV colon cancer, T2DM, CHF , CKD3, JANET on CPAP, Parkinson's Disease, Gout, essential HTN, hypothyroidism, current cigarette smoking status, p/w 5 days history of shaking chills, runny nose, shortness of breath, and productive cough with clear sputum. She is vaccinated against CoVID pneumonia. She was in her usual state of health until 5 days ago when she started to experience shaking chills, runny nose, shortness of breath, and productive cough with clear sputum. In addition, she is complaining of dysuria and increased urinary frequency. Vital signs significant for oxygen desaturating to mid 80s on room air, with rest of the vital signs within normal limits. Labs significant for lack of leukocytosis with WBC 5.7. Serum Cr level 1.3, baseline 1.2. CXR showing near complete resolution of previously seen bilateral infiltrates with residual minor inflammation or fibrosis in both lung bases. 10/25: Afebrile overnight. Blood and urine cultures no growth to date. Currently on 3.5L/min oxygen. c/o improving SOB. c/o productive cough with white sputum. Denies chest pain. Denies wheezing. Denies fever, chills, or sweating. Denies anxiety. Denies dysuria. 10/26: Afebrile overnight. Blood culture: Coagulase negative staph; Urine culture no growth to date. Currently on 3.5L/min oxygen. c/o improving SOB. c/o productive cough with white sputum. Denies chest pain. Denies wheezing. Denies fever, chills, or sweating. Denies anxiety. Denies dysuria. 10/27: Afebrile overnight. Blood culture: Coagulase negative staph; Urine culture no growth to date. On room air currently. Denies shortness of breath. Denies any cough, sputum production, or respiratory wheezing. Denies chest pain. Denies wheezing. Denies fever, chills, or sweating. Denies anxiety. Denies dysuria. Continue Rocephin. D/c Remdesivir and Dexamethasone. Constitutional Vitals: Vital Signs Temp Pulse Resp BP Pulse Ox 36.1 C L 67 16 149/77 91 10/27/21 11:57 10/27/21 11:57 10/27/21 11:57 10/27/21 11:57 10/27/21 11:57 Period Temp Pulse Resp BP Sys/Simmons Pulse Ox Last 24 Hr 35.7 C-36.3 C 50-67 16-19 120-157/65-77 91-95 Intake and Output 10/26/21 10/27/21 10/27/21 21:59 05:59 13:59 Intake Total 1330 800 240 Output Total 1650 1675 800 Balance -320 -875 -560 Weight 111.3 kg Intake & Output: Intake & Output 10/26/21 10/27/21 10/27/21 21:59 05:59 13:59 Intake Total 1330 800 240 Output Total 1650 5785 800 Balance -320 -875 -560 Weight 111.3 kg Intake: IV 250 Veklury 100 mg In Sodium 250 Chloride 0.9% 250 ml @ 500 mls/ hr IV DAILY@1400 [facility] Rx#: [id number] Oral 1080 800 240 Output: Void Amount 1650 1675 800 Other: Meal Lunch Breakfast Percent of Meal Consumed 100% 100% Feeding Ability Independent Urine Appearance Clear Clear Urine Color Dark Yellow Pale Urine Odor Normal Normal Stool Size Smear Stool Color Brown Stool Consistency Soft General appearance: cooperative and no acute distress Head Head exam: Present atraumatic and normal inspection Eye Eye exam: Present normal appearance ENT ENT exam: Present mucous membranes moist, normal exam and normal external ear exam Neck Neck exam: Present normal inspection Respiratory Respiratory exam: Present normal respiratory exam Cardiovascular Cardiovascular exam: Present normal rate and rhythm GI/Abdominal GI/Abdominal exam: Present normal bowel sounds Back Exam Back exam: Present normal inspection Neurological Exam Neurological exam: Present alert and oriented X3 Skin Skin exam: Present intact and warm OBJ DATA Labs CBC & Chem 7: 10/27/21 05:31 10/27/21 05:31 Labs: Abnormal Lab Results 10/27/21 10/27/21 10/26/21 05:31 05:31 06:03 WBC Hgb MCHC RDW 15.2 H MPV 10.9 H Neut % (Auto) 78.5 H Lymph % (Auto) Lymph # (Auto) 1.02 L Fibrinogen D-Dimer BUN 32 H 30 H Creatinine Glucose 110 H 167 H Hemoglobin A1c Calcium 8.4 L 8.4 L AST 35 H Alkaline Phosphatase Lactate Dehydrogenase C-Reactive Protein Total Protein 5.8 L 5.6 L Albumin 2.7 L 2.4 L Albumin/Globulin Ratio 0.9 L 0.8 L 10/26/21 10/25/21 10/25/21 06:03 05:24 05:24 WBC 4.1 L Hgb 10.8 L 10.7 L MCHC 30.0 L RDW 15.5 H 15.6 H MPV 10.7 H 10.9 H Neut % (Auto) 82.0 H 83.1 H Lymph % (Auto) 12.4 L 13.6 L Lymph # (Auto) 0.83 L 0.56 L Fibrinogen D-Dimer BUN Creatinine Glucose 341 H Hemoglobin A1c Calcium 8.3 L AST Alkaline Phosphatase Lactate Dehydrogenase C-Reactive Protein Total Protein 5.7 L Albumin 2.5 L Albumin/Globulin Ratio 0.8 L 10/24/21 10/24/21 10/24/21 14:23 14:23 14:23 WBC Hgb MCHC RDW MPV Neut % (Auto) Lymph % (Auto) Lymph # (Auto) Fibrinogen 623 H D-Dimer 1.37 H BUN Creatinine 1.3 H Glucose 111 H Hemoglobin A1c 11.8 H Calcium 8.5 L AST Alkaline Phosphatase 118 H Lactate Dehydrogenase 256 H C-Reactive Protein 7.90 H Total Protein Albumin 2.8 L Albumin/Globulin Ratio 0.9 L 10/24/21 14:23 WBC Hgb 10.8 L MCHC RDW 15.9 H MPV 10.6 H Neut % (Auto) Lymph % (Auto) Lymph # (Auto) 1.30 L Fibrinogen D-Dimer BUN Creatinine Glucose Hemoglobin A1c Calcium AST Alkaline Phosphatase Lactate Dehydrogenase C-Reactive Protein Total Protein Albumin Albumin/Globulin Ratio Meds: Medications Acetaminophen (Acetaminophen 325 Mg Tablet) 650 mg PO Q6HP PRN; Protocol PRN Reason: Per Pain Protocol/Fever > 101 Last Admin: 10/27/21 04:08 Dose: 650 mg Documented by: Albuterol/Ipratropium (Ipratropium/Albuterol 3 Ml Ampul.Neb) 3 ml NEB Q4HRT PRN PRN Reason: Wheezing Allopurinol (Allopurinol 300 Mg Tablet) 300 mg PO QDAY [facility] Last Admin: 10/27/21 09:00 Dose: 300 mg Documented by: Aspirin (Aspirin 81 Mg Tab.Chew) 81 mg PO DAILY [facility] Last Admin: 10/27/21 08:59 Dose: 81 mg Documented by: Carbidopa/Levodopa (Carbidopa/Levodopa 25/100 Tablet) 1 tab PO TID [facility] Last Admin: 10/27/21 08:59 Dose: 1 tab Documented by: Ceftriaxone Sodium (Ceftriaxone 1 Gm Vial) 1 gm IV DAILY [facility] Last Admin: 10/27/21 08:56 Dose: 1 gm Documented by: Clotrimazole (Clotrimazole Crm 1% 1 Dose Tube) 1 dose TOPICAL BID [facility] Last Admin: 10/27/21 09:02 Dose: 1 dose Documented by: Colchicine (Colchicine 0.6 Mg Capsule) 0.6 mg PO BID [facility] Last Admin: 10/27/21 09:00 Dose: 0.6 mg Documented by: Dextrose (Dextrose 50% 50 Ml Vial) 0 ml IV UD PRN PRN Reason: Hypoglycemia Diagnostic Test (Pha) (Accu-Chek 1 Each Strip) 1 each FS ACHS [facility] Last Admin: 10/27/21 10:57 Dose: 1 each Documented by: Docusate Sodium (Docusate Sodium 100 Mg Capsule) 100 mg PO BID [facility] Last Admin: 10/27/21 08:57 Dose: 100 mg Documented by: Enoxaparin Sodium (Enoxaparin 40 Mg/0.4 Ml Syringe) 40 mg SQ DAILY [facility] Last Admin: 10/27/21 09:01 Dose: 40 mg Documented by: Escitalopram Oxalate (Escitalopram 20 Mg Tablet) 20 mg PO QDAY [facility] Last Admin: 10/27/21 08:58 Dose: 20 mg Documented by: Fluticasone Propionate (Fluticasone Propionate [place]) 2 spray NS QDAY [facility] Last Admin: 10/27/21 09:02 Dose: Not Given Documented by: Glucose (Dextrose 31 Gm Oral.Susp) 15 gm PO PRN PRN PRN Reason: Hypoglycemia Guaifenesin (Guaifenesin/Dextromethorphan Oral Honey) 10 ml PO Q4HP PRN PRN Reason: Cough Last Admin: 10/26/21 22:53 Dose: 10 ml Documented by: Heparin Sodium (Porcine) (Heparin Flush 10 Units/Ml 5 Ml Syringe) 5 ml IV Q12 [facility] Last Admin: 10/27/21 09:02 Dose: 5 ml Documented by: Hydralazine HCl (Hydralazine 25 Mg Tablet) 25 mg PO QDAY [facility] Last Admin: 10/27/21 08:57 Dose: 25 mg Documented by: Insulin Human Lispro (Insulin Lispro 1 Unit/0.01 Ml Unit) 0 unit SQ ACHS [facility]; Protocol Last Admin: 10/27/21 11:26 Dose: 15 units Documented by: Insulin Lispro Protam/Lispro Human (Insulin, 75/25 Npl/Lispro 1 Unit/0.01 Ml Unit) 25 unit SQ BIDAC [facility] Last Admin: 10/27/21 08:08 Dose: 25 units Documented by: Iron Carb/Multivit/[place]/Folic Acid (Multivit,Ther Iron,Ca,Fa & Min 1 Tablet) 1 tab PO DAILY [facility] Last Admin: 10/27/21 08:58 Dose: 1 tab Documented by: Levothyroxine Sodium (Levothyroxine 25 Mcg Tablet) 12.5 mcg PO QAMAC [facility] Last Admin: 10/27/21 07:08 Dose: 12.5 mcg Documented by: Lisinopril (Lisinopril 5 Mg Tablet) 5 mg PO QDAY [facility] Last Admin: 10/27/21 09:00 Dose: 5 mg Documented by: Loratadine (Loratadine 10 Mg Tablet) 10 mg PO QDAY [facility] Last Admin: 10/27/21 08:58 Dose: 10 mg Documented by: Methocarbamol (Methocarbamol 500 Mg Tablet) 500 mg PO Q8HP PRN PRN Reason: neck pain Last Admin: 10/26/21 22:53 Dose: 500 mg Documented by: Mupirocin (Mupirocin Oint 2% 22gm) 1 dose TOPICAL QDAY [facility] Last Admin: 10/27/21 09:02 Dose: 1 dose Documented by: Nicotine (Nicotine 14 Mg Patch) 1 mg TOPICAL Q24H [facility] Last Admin: 10/26/21 20:21 Dose: Not Given Documented by: Omeprazole (Omeprazole 20 Mg Capsule) 20 mg PO ACB [facility] Last Admin: 10/27/21 07:09 Dose: 20 mg Documented by: Ondansetron HCl (Ondansetron 4 Mg/2 Ml Vial) 4 mg IV Q6HP PRN PRN Reason: Nausea And Vomiting Polyethylene Glycol (Polyethylene Glycol 3350 17 Gm Packet) 17 gm PO DAILYP PRN PRN Reason: Constipation Last Admin: 10/27/21 10:56 Dose: 17 gm Documented by: Potassium Chloride (Potassium Chloride 20 Meq Tablet) 20 meq PO BIDCC [facility] Last Admin: 10/27/21 08:08 Dose: 20 meq Documented by: Pramipexole Dihydrochloride (Pramipexole 1 Mg Tablet) 1 mg PO [facility] Last Admin: 10/26/21 20:19 Dose: 1 mg Documented by: Prazosin HCl (Prazosin 1 Mg Capsule) 2 mg PO [facility] Last Admin: 10/26/21 20:20 Dose: 2 mg Documented by: Senna (Sennosides 1 Tablet) 2 tab PO [facility] Last Admin: 10/26/21 20:22 Dose: Not Given Documented by: Simvastatin (Simvastatin 10 Mg Tablet) 5 mg PO QDAY [facility] Last Admin: 10/27/21 08:59 Dose: 5 mg Documented by: Sodium Chloride (0.9 % Sodium Chloride 10 Ml Syringe) 10 ml IV Q8 [facility] Last Admin: 10/27/21 04:08 Dose: 10 ml Documented by: Sodium Chloride (0.9 % Sodium Chloride 10 Ml Syringe) 10 ml IV Q12 [facility] Last Admin: 10/27/21 09:03 Dose: 10 ml Documented by: Torsemide (Torsemide 10 Mg Tablet) 100 mg PO DAILY [facility] Last Admin: 10/27/21 08:56 Dose: 100 mg Documented by: Zolpidem Tartrate (Zolpidem 5 Mg Tablet) 5 mg PO HSP PRN PRN Reason: Insomnia A/P Assessment and plan (1) Pneumonia due to COVID-19 virus: Status: Acute (2) CHF (congestive heart failure): Status: Chronic Qualifiers: Heart failure type: unspecified Heart failure chronicity: chronic Qualified Code(s): I50.9 - Heart failure, unspecified (3) Hypertension: Status: Chronic Qualifiers: Hypertension type: essential hypertension Qualified Code(s): I10 - Essential (primary) hypertension (4) Hypothyroidism: Status: Chronic Qualifiers: Hypothyroidism type: unspecified Qualified Code(s): E03.9 - Hypothyroidism, unspecified (5) Hyperlipidemia: Status: Chronic (6) Sleep apnea: Status: Chronic (7) Gout: Status: Chronic Qualifiers: Gout site: toe Gout etiology: unspecified cause Chronicity: acute Laterality: right Qualified Code(s): M10.9 - Gout, unspecified (8) Stage 3 chronic kidney disease: Status: Chronic Qualifiers: Chronic kidney disease stage 3 subtype: unspecified whether 3a or 3b Qualified Code(s): N18.30 - Chronic kidney disease, stage 3 unspecified (9) Restless leg syndrome: Status: Chronic (10) Diabetes mellitus with neuropathy: Status: Chronic Qualifiers: Diabetes mellitus type: type 2 Diabetes mellitus intermediate card tender insulin use: with intermediate card tender use Qualified Code(s): E11.40 - Type 2 diabetes mellitus with diabetic neuropathy, unspecified; Z79.4 - penitentiary (current) use of insulin (11) Metastatic adenocarcinoma: Status: Chronic (12) Adenocarcinoma of cecum: Status: Chronic (13) Tobacco dependence: Status: Acute (14) Parkinson's disease: Status: Acute (15) CPAP (continuous positive airway pressure) dependence: Status: Acute (16) UTI (urinary tract infection): Status: Acute (17) Anemia, normocytic normochromic: Status: Acute (18) Enterococcal bacteremia: Status: Deleted Narrative A/P Narrative: Assessment and Plans: 1. CoVID pneumonia: Stays in inpatient med surg telemetry Isolation: airborne and contact Supplemental oxygen therapy titrate to achieve spo2>=92%, currently on room air Lactic acid Inflammatory markers cbc w/ auto diff in the morning to trend WBC Blood culture growing E. faecalis Remdesivir Dexamethasone Torsemide Heparin Robitussin DM PRN cough DuoNEB NEB PRN wheezing Tylenol PRN cough Proning 16 hour/day as tolerated 2. UTI: Lactic acid UA reflexive urine culture, no growth to date Blood culture growing Coagulase negative staph cbc w/ auto diff in the morning to trend WBC Rocephin Tylenol PRN cough 3. Stage IV colon cancer: Outpatient f/u with oncologist 4. h/o CHF: Continue Torsemide 5. T2DM: HgA1c 11.8 Hold oral hypoglycemics Insulin 70/30 25 unit SQ BID High dose correctional scale insulin AC HS for better glycemic coverage Accu Chek AC HS Hypoglycemia protocol Diabetic diet 6. Essential HTN: Currently normotensive Continue home regimen of oral antihypertensives 7. Hypothyroidism: Continue oral thyroid replacement therapy 8. CKD stage 3: Baseline serum Cr level 1.2, currently at 1.0 Avoid nephrotoxic agents Saline lock CMP in the morning to trend kidney functions 9. Parkinson's Disease: Continue Sinemet 10. Current cigarette smoker: [employer] Receiving patient on quitting cigarette smoking; Nicotine replacement therapy 11. JANET: Continue CPAP at night while patient is sleeping 12. Anemia, normocytic normochromic: cbc w/ auto diff in the morning to trend H/H 13. Coagulase negative staph bacteremia: Repeat blood culture on 10/27 2D echocardiogram to rule out endocarditis Rocephin Tylenol PRN fever cbc w/ auto diff in the morning to trend WBC level GI ppx: continue oral PPI from home regimen DVT ppx: Lovenox Code status: DNI Prognosis: guarded Disposition: inpatient med surg telemetry Time Spent With Patient Time: Total time spent is greater than 50% in coordination of care (as documented) at patient's floor/unit and/or counseling patient: Total time spent with greater than 50% in coordination of care (as documented) at patient's floor/unit and/or counseling patient:: Greater than 35 minutes QUALITY VTE Deep Vein Thrombosis/Pulmonary Embolism Present on Admission: No
[2021-10-27] MEDS ORDERED: REMDESIVIR 100 MG in 0.9 % SODIUM CHLORIDE 250 ML IV ONE (12:15)
[2021-10-27] MEDS: SENNOSIDES 1 TABLET PO SCH (21:07)
[2021-10-27] MEDS: PRAZOSIN 1 MG CAPSULE PO SCH (21:08)
[2021-10-27] MEDS: PRAMIPEXOLE 1 MG TABLET PO SCH (21:09)
[2021-10-27] MEDS: NICOTINE 14 MG PATCH TOPICAL SCH (21:10)
[2021-10-27] MEDS: METHOCARBAMOL 500 MG TABLET PO PRN (22:00)
[2021-10-27] MEDS: guaiFENesin/DEXTROMETHORPHAN ORAL SOL PO PRN (22:01)
[2021-10-28 01:18] LABS: Appearance,Urine CLEAR (Clear); Bilirubin,Urine Negative (Negative); Color,Urine STRAW; Culture Indicated,Urine No; Glucose,Urine (UA) 50 mg/dL (Negative); Ketones,Urine Negative (Negative); Leukocyte Esterase,Urine Negative /uL (Negative); Nitrate,Urine Negative (Negative); Protein,Urine Negative (Negative); Specific Gravity,Urine 1.005 (1.000-1.035); Urine Blood Negative (Negative); Urobilinogen,Urine Negative
[2021-10-28] MEDS: 0.9 % SODIUM CHLORIDE 10 ML SYRINGE IV SCH ×5 (05:38→21:19)
[2021-10-28] MEDS: LEVOTHYROXINE 25 MCG TABLET PO SCH (07:58)
[2021-10-28] MEDS: OMEPRAZOLE 20 MG CAPSULE PO SCH (07:59)
[2021-10-28] MEDS: POTASSIUM CHLORIDE 20 MEQ TABLET PO SCH ×2 (08:00→16:39)
[2021-10-28 08:05] LABS: Basophils # (Auto) 0.01 K/mcL (0.00-0.30); Basophils % (Auto) 0.2 % (0.0-2.0); Eosinophils # (Auto) 0.01 K/mcL (0.00-0.70); Eosinophils % (Auto) 0.2 % (0.0-7.0); Hematocrit 35.2 % (34.1-44.9); Hemoglobin 11.2 g/dL (11.2-15.7); Lymphocytes # (Auto) 1.47 K/mcL (1.50-4.80); Lymphocytes % (Auto) 24.1 % (15.5-49.0); Mean Cell Volume 85.4 fL (80.0-100.0); Mean Corpuscular HGB Conc 31.8 g/dL (31.0-36.0); Monocytes # (Auto) 0.42 K/mcL (0.10-0.90); Monocytes % (Auto) 6.9 % (1.0-12.0); Neutrophils % (Auto) 68.6 % (38.0-78.0); Platelet Count 345 K/mcL (140-440); RBC 4.12 M/mcL (3.59-5.38); Red Cell Distribution Width 14.9 % (11.5-14.5); WBC 6.1 K/mcL (4.5-11.0)
[2021-10-28 08:27] LABS: ALT/SGPT 12 U/L (<40); AST/SGOT 62 U/L (<32); Albumin 2.7 gm/dL (3.2-5.2); Albumin/Globulin Ratio 0.9 (1.0-2.3); Alkaline Phosphatase 106 U/L (39-117); Bilirubin,Total 0.2 mg/dL (0.1-1.0); Blood Urea Nitrogen 31 mg/dL (8-23); Calcium 8.6 mg/dL (8.6-10.4); Carbon Dioxide 33 mmol/L (22-30); Chloride 96 mmol/L (96-108); Globulin 3.1 gm/dL (2.2-3.7); Glomerular Filtration Rate 52; Glucose 108 mg/dL (70-105); Phosphorous 3.8 mg/dL (2.5-4.5)
[2021-10-28] MEDS: INSULIN LISPRO 1 UNIT/0.01 ML UNIT SQ SCH ×4 (09:31→21:16)
[2021-10-28] MEDS: ESCITALOPRAM 20 MG TABLET PO SCH (09:52)
[2021-10-28] MEDS: ASPIRIN 81 MG TAB.CHEW PO SCH (09:52)
[2021-10-28] MEDS: cefTRIAXone 1 GM VIAL IV SCH (09:52)
[2021-10-28] MEDS: MULTIVIT,THER IRON,CA,FA & MIN 1 TABLET PO SCH (09:52)
[2021-10-28] MEDS: CARBIDOPA/LEVODOPA 25/100 TABLET PO SCH ×3 (09:52→21:17)
[2021-10-28] MEDS: SIMVASTATIN 10 MG TABLET PO SCH (09:52)
[2021-10-28] MEDS: DOCUSATE SODIUM 100 MG CAPSULE PO SCH ×2 (09:52→21:17)
[2021-10-28] MEDS: LISINOPRIL 5 MG TABLET PO SCH (09:53)
[2021-10-28] MEDS: CLOTRIMAZOLE CRM 1% 1 DOSE TUBE TOPICAL SCH ×2 (09:53→21:18)
[2021-10-28] MEDS: MUPIROCIN OINT 2% 22GM TOPICAL SCH (09:53)
[2021-10-28] MEDS: TORSEMIDE 10 MG TABLET PO SCH (09:53)
[2021-10-28] MEDS: LORATADINE 10 MG TABLET PO SCH (09:53)
[2021-10-28] MEDS: hydrALAZINE 25 MG TABLET PO SCH (09:53)
[2021-10-28] MEDS: COLCHICINE 0.6 MG CAPSULE PO SCH ×2 (09:53→21:16)
[2021-10-28] MEDS: ALLOPURINOL 300 MG TABLET PO SCH (09:53)
[2021-10-28] MEDS: INSULIN, 75/25 NPL/LISPRO 1 UNIT/0.01 ML UNIT SQ SCH ×2 (09:54→16:38)
[2021-10-28] MEDS: ENOXAPARIN 40 MG/0.4 ML SYRINGE SQ SCH (10:05)
[2021-10-28] MEDS: FLUTICASONE PROPIONATE SPRAY.NAS NS SCH (12:08)
[2021-10-28] MEDS ORDERED: LACTULOSE 20 GM/30 ML ORAL.SOL PO PRN (12:10)
[2021-10-28] MEDS ORDERED: OPIUM/BELLADONNA ALKALOIDS 30 MG SUPP.RECT PR ONE (12:10)
[2021-10-28] MEDS ORDERED: MAGNESIUM HYDROXIDE 30 ML ORAL.SUSP PO PRN (12:10)
--- NOTE | 2021-10-28 12:13 | Internal Med Progress Note ---
SUBJECTIVE Subjective Patient information: Note initiated : 10/28/21 at 12:11 pm Service Date, if different from initiated Date: [] Patient: Patsy Lam a 86 y/o F admitted on 10/24/21 for cough, fatigue,weakness, SOB. Chief Complaint: [] Interval history: Ms. Cherie Paula is a 86 year old F h/o stage IV colon cancer, T2DM, CHF , CKD3, JANET on CPAP, Parkinson's Disease, Gout, essential HTN, hypothyroidism, current cigarette smoking status, p/w 5 days history of shaking chills, runny nose, shortness of breath, and productive cough with clear sputum. She is vaccinated against CoVID pneumonia. She was in her usual state of health until 5 days ago when she started to experience shaking chills, runny nose, shortness of breath, and productive cough with clear sputum. In addition, she is complaining of dysuria and increased urinary frequency. Vital signs significant for oxygen desaturating to mid 80s on room air, with rest of the vital signs within normal limits. Labs significant for lack of leukocytosis with WBC 5.7. Serum Cr level 1.3, baseline 1.2. CXR showing near complete resolution of previously seen bilateral infiltrates with residual minor inflammation or fibrosis in both lung bases. 10/25: Afebrile overnight. Blood and urine cultures no growth to date. Currently on 3.5L/min oxygen. c/o improving SOB. c/o productive cough with white sputum. Denies chest pain. Denies wheezing. Denies fever, chills, or sweating. Denies anxiety. Denies dysuria. 10/26: Afebrile overnight. Blood culture: Coagulase negative staph; Urine culture no growth to date. Currently on 3.5L/min oxygen. c/o improving SOB. c/o productive cough with white sputum. Denies chest pain. Denies wheezing. Denies fever, chills, or sweating. Denies anxiety. Denies dysuria. 10/27: Afebrile overnight. Blood culture: Coagulase negative staph; Urine culture no growth to date. On room air currently. Denies shortness of breath. Denies any cough, sputum production, or respiratory wheezing. Denies chest pain. Denies wheezing. Denies fever, chills, or sweating. Denies anxiety. Denies dysuria. Continue Rocephin. D/c Remdesivir and Dexamethasone. 10/28: Afebrile overnight. Currently on room air; was on 2L/min oxygen overnight. Blood culture: Coagulase negative staph; Repeat blood culture on 10/27, no growth to date; Urine culture no growth to date. Denies shortness of breath. c/o nonproductive cough. Denies respiratory wheezing. c/o mild chest pressure. Denies fever, chills, or sweating. c/o constipation. Denies anxiety. Denies dysuria. Refused SNF placement. Continue Rocephin. Constitutional Vitals: Vital Signs Temp Pulse Resp BP Pulse Ox 36.2 C 52 L 18 172/65 95 10/28/21 08:00 10/28/21 08:00 10/28/21 08:00 10/28/21 08:00 10/28/21 08:00 Period Temp Pulse Resp BP Sys/Simmons Pulse Ox Last 24 Hr 35.9 C-36.6 C 50-60 16-18 119-172/63-75 93-95 Intake and Output 10/27/21 10/28/21 10/28/21 21:59 05:59 13:59 Intake Total 675 Output Total 500 1 Balance 175 -1 Weight 111.3 kg Intake & Output: Intake & Output 10/27/21 10/28/21 10/28/21 21:59 05:59 13:59 Intake Total 675 Output Total 500 1 Balance 175 -1 Weight 111.3 kg Intake: IV 250 Veklury 100 mg In Sodium 250 Chloride 0.9% 250 ml @ 500 mls/ hr IV ONCE ONE Rx#:[id number] Oral 425 Output: Void Amount 500 # of times incontinent of urine 1 Other: Meal Lunch Percent of Meal Consumed 100% Feeding Ability Independent Urine Color Pale Urine Odor Normal Stool Size Small Stool Color Brown Stool Consistency Formed # Voids 1 1 General appearance: cooperative, no acute distress and obese Head Head exam: Present atraumatic and normal inspection Eye Eye exam: Present normal appearance ENT ENT exam: Present mucous membranes moist, normal exam and normal external ear exam Neck Neck exam: Present normal inspection Respiratory Respiratory exam: Present normal respiratory exam; Absent rhonchi or wheezes Cardiovascular Cardiovascular exam: Present normal rate and rhythm GI/Abdominal GI/Abdominal exam: Present normal bowel sounds Back Exam Back exam: Present normal inspection Neurological Exam Neurological exam: Present alert and oriented X3 Skin Skin exam: Present intact and warm OBJ DATA Labs CBC & Chem 7: 10/28/21 07:05 10/28/21 07:05 Labs: Abnormal Lab Results 10/28/21 10/28/21 10/27/21 07:05 07:05 10:16 Hgb RDW 14.9 H MPV 11.0 H Neut % (Auto) Lymph % (Auto) Lymph # (Auto) 1.47 L Carbon Dioxide 33 H BUN 31 H Glucose 108 H Calcium AST 62 H Total Protein 5.8 L Albumin 2.7 L Albumin/Globulin Ratio 0.9 L Urine Glucose (UA) 50 A 10/27/21 10/27/21 10/26/21 05:31 05:31 06:03 Hgb RDW 15.2 H MPV 10.9 H Neut % (Auto) 78.5 H Lymph % (Auto) Lymph # (Auto) 1.02 L Carbon Dioxide BUN 32 H 30 H Glucose 110 H 167 H Calcium 8.4 L 8.4 L AST 35 H Total Protein 5.8 L 5.6 L Albumin 2.7 L 2.4 L Albumin/Globulin Ratio 0.9 L 0.8 L Urine Glucose (UA) 10/26/21 06:03 Hgb 10.8 L RDW 15.5 H MPV 10.7 H Neut % (Auto) 82.0 H Lymph % (Auto) 12.4 L Lymph # (Auto) 0.83 L Carbon Dioxide BUN Glucose Calcium AST Total Protein Albumin Albumin/Globulin Ratio Urine Glucose (UA) Meds: Medications Acetaminophen (Acetaminophen 325 Mg Tablet) 650 mg PO Q6HP PRN; Protocol PRN Reason: Per Pain Protocol/Fever > 101 Last Admin: 10/27/21 22:00 Dose: 650 mg Documented by: Albuterol/Ipratropium (Ipratropium/Albuterol 3 Ml Ampul.Neb) 3 ml NEB Q4HRT PRN PRN Reason: Wheezing Allopurinol (Allopurinol 300 Mg Tablet) 300 mg PO QDAY [facility] Last Admin: 10/28/21 09:53 Dose: 300 mg Documented by: Aspirin (Aspirin 81 Mg Tab.Chew) 81 mg PO DAILY [facility] Last Admin: 12/28/21 09:52 Dose: 81 mg Documented by: Carbidopa/Levodopa (Carbidopa/Levodopa 25/100 Tablet) 1 tab PO TID [facility] Last Admin: 10/28/21 09:52 Dose: 1 tab Documented by: Ceftriaxone Sodium (Ceftriaxone 1 Gm Vial) 1 gm IV DAILY [facility] Last Admin: 10/28/21 09:52 Dose: 1 gm Documented by: Clotrimazole (Clotrimazole Crm 1% 1 Dose Tube) 1 dose TOPICAL BID [facility] Last Admin: 10/28/21 09:53 Dose: 1 dose Documented by: Colchicine (Colchicine 0.6 Mg Capsule) 0.6 mg PO BID [facility] Last Admin: 10/28/21 09:53 Dose: 0.6 mg Documented by: Dextrose (Dextrose 50% 50 Ml Vial) 0 ml IV UD PRN PRN Reason: Hypoglycemia Diagnostic Test (Pha) (Accu-Chek 1 Each Strip) 1 each FS ACHS [facility] Last Admin: 10/28/21 07:56 Dose: 1 each Documented by: Docusate Sodium (Docusate Sodium 100 Mg Capsule) 100 mg PO BID [facility] Last Admin: 10/28/21 09:52 Dose: 100 mg Documented by: Enoxaparin Sodium (Enoxaparin 40 Mg/0.4 Ml Syringe) 40 mg SQ DAILY [facility] Last Admin: 10/28/21 10:05 Dose: 40 mg Documented by: Escitalopram Oxalate (Escitalopram 20 Mg Tablet) 20 mg PO QDAY [facility] Last Admin: 10/28/21 09:52 Dose: 20 mg Documented by: Fluticasone Propionate (Fluticasone Propionate [place].Jose Raul) 2 spray NS QDAY [facility] Last Admin: 10/28/21 12:08 Dose: Not Given Documented by: Glucose (Dextrose 31 Gm Oral.Susp) 15 gm PO PRN PRN PRN Reason: Hypoglycemia Guaifenesin (Guaifenesin/Dextromethorphan Oral Honey) 10 ml PO Q4HP PRN PRN Reason: Cough Last Admin: 10/27/21 22:01 Dose: 10 ml Documented by: Heparin Sodium (Porcine) (Heparin Flush 10 Units/Ml 5 Ml Syringe) 5 ml IV Q12 [facility] Last Admin: 10/28/21 09:54 Dose: 5 ml Documented by: Hydralazine HCl (Hydralazine 25 Mg Tablet) 25 mg PO QDAY [facility] Last Admin: 10/28/21 09:53 Dose: 25 mg Documented by: Insulin Human Lispro (Insulin Lispro 1 Unit/0.01 Ml Unit) 0 unit SQ ACHS [facility]; Protocol Last Admin: 10/28/21 09:31 Dose: Not Given Documented by: Insulin Lispro Protam/Lispro Human (Insulin, 75/25 Npl/Lispro 1 Unit/0.01 Ml Unit) 25 unit SQ BIDAC [facility] Last Admin: 10/28/21 09:54 Dose: 25 units Documented by: Iron Carb/Multivit/Flue Lining Dipper/Folic Acid (Multivit,Ther Iron,Ca,Fa & Min 1 Tablet) 1 tab PO DAILY [facility] Last Admin: 10/28/21 09:52 Dose: 1 tab Documented by: Levothyroxine Sodium (Levothyroxine 25 Mcg Tablet) 12.5 mcg PO QAMAC [facility] Last Admin: 10/28/21 07:58 Dose: 12.5 mcg Documented by: Lisinopril (Lisinopril 5 Mg Tablet) 5 mg PO QDAY [facility] Last Admin: 10/28/21 09:53 Dose: 5 mg Documented by: Loratadine (Loratadine 10 Mg Tablet) 10 mg PO QDAY [facility] Last Admin: 10/28/21 09:53 Dose: 10 mg Documented by: Methocarbamol (Methocarbamol 500 Mg Tablet) 500 mg PO Q8HP PRN PRN Reason: neck pain Last Admin: 10/27/21 22:00 Dose: 500 mg Documented by: Mupirocin (Mupirocin Oint 2% 22gm) 1 dose TOPICAL QDAY [facility] Last Admin: 10/28/21 09:53 Dose: 1 dose Documented by: Nicotine (Nicotine 14 Mg Patch) 1 mg TOPICAL Q24H [facility] Last Admin: 10/27/21 21:10 Dose: Not Given Documented by: Omeprazole (Omeprazole 20 Mg Capsule) 20 mg PO ACB [facility] Last Admin: 10/28/21 07:59 Dose: 20 mg Documented by: Ondansetron HCl (Ondansetron 4 Mg/2 Ml Vial) 4 mg IV Q6HP PRN PRN Reason: Nausea And Vomiting Polyethylene Glycol (Polyethylene Glycol 3350 17 Gm Packet) 17 gm PO DAILYP PRN PRN Reason: Constipation Last Admin: 10/27/21 10:56 Dose: 17 gm Documented by: Potassium Chloride (Potassium Chloride 20 Meq Tablet) 20 meq PO BIDCC [facility] Last Admin: 10/28/21 08:00 Dose: 20 meq Documented by: Pramipexole Dihydrochloride (Pramipexole 1 Mg Tablet) 1 mg PO [facility] Last Admin: 10/27/21 21:09 Dose: 1 mg Documented by: Prazosin HCl (Prazosin 1 Mg Capsule) 2 mg PO [facility] Last Admin: 10/27/21 21:08 Dose: 2 mg Documented by: Senna (Sennosides 1 Tablet) 2 tab PO [facility] Last Admin: 10/27/21 21:07 Dose: 2 tab Documented by: Simvastatin (Simvastatin 10 Mg Tablet) 5 mg PO QDAY [facility] Last Admin: 10/28/21 09:52 Dose: 5 mg Documented by: Sodium Chloride (0.9 % Sodium Chloride 10 Ml Syringe) 10 ml IV Q8 [facility] Last Admin: 10/28/21 05:38 Dose: 10 ml Documented by: Sodium Chloride (0.9 % Sodium Chloride 10 Ml Syringe) 10 ml IV Q12 [facility] Last Admin: 10/28/21 09:55 Dose: 10 ml Documented by: Torsemide (Torsemide 10 Mg Tablet) 100 mg PO DAILY [facility] Last Admin: 10/28/21 09:53 Dose: 100 mg Documented by: Zolpidem Tartrate (Zolpidem 5 Mg Tablet) 5 mg PO HSP PRN PRN Reason: Insomnia A/P Assessment and plan (1) Pneumonia due to COVID-19 virus: Status: Acute (2) CHF (congestive heart failure): Status: Chronic Qualifiers: Heart failure type: unspecified Heart failure chronicity: chronic Qualified Code(s): I50.9 - Heart failure, unspecified (3) Hypertension: Status: Chronic Qualifiers: Hypertension type: essential hypertension Qualified Code(s): I10 - Essential (primary) hypertension (4) Hypothyroidism: Status: Chronic Qualifiers: Hypothyroidism type: unspecified Qualified Code(s): E03.9 - Hypothyroidism, unspecified (5) Hyperlipidemia: Status: Chronic (6) Sleep apnea: Status: Chronic (7) Gout: Status: Chronic Qualifiers: Gout site: toe Gout etiology: unspecified cause Chronicity: acute Laterality: right Qualified Code(s): M10.9 - Gout, unspecified (8) Stage 3 chronic kidney disease: Status: Chronic Qualifiers: Chronic kidney disease stage 3 subtype: unspecified whether 3a or 3b Qualified Code(s): N18.30 - Chronic kidney disease, stage 3 unspecified (9) Restless leg syndrome: Status: Chronic (10) Diabetes mellitus with neuropathy: Status: Chronic Qualifiers: Diabetes mellitus type: type 2 Diabetes mellitus halfway insulin use: with clinical programmer use Qualified Code(s): E11.40 - Type 2 diabetes mellitus with diabetic neuropathy, unspecified; Z79.4 - skilled nursing (current) use of insulin (11) Metastatic adenocarcinoma: Status: Chronic (12) Adenocarcinoma of cecum: Status: Chronic (13) Tobacco dependence: Status: Acute (14) Parkinson's disease: Status: Acute (15) CPAP (continuous positive airway pressure) dependence: Status: Acute (16) UTI (urinary tract infection): Status: Acute (17) Anemia, normocytic normochromic: Status: Acute (18) Enterococcal bacteremia: Status: Deleted (19) Constipation: Status: Acute Narrative A/P Narrative: Assessment and Plans: 1. CoVID pneumonia: Stays in inpatient med surg Isolation: airborne and contact Supplemental oxygen therapy titrate to achieve spo2>=92%, currently on room air Lactic acid Inflammatory markers cbc w/ auto diff in the morning to trend WBC Blood culture growing coagulase negative staph d/c Remdesivir d/c Dexamethasone Torsemide Heparin Robitussin DM PRN cough DuoNEB NEB PRN wheezing Tylenol PRN cough 6 min walk test prior to discharge to assess for need for home oxygen 2. UTI: Lactic acid UA reflexive urine culture, no growth to date Blood culture growing Coagulase negative staph cbc w/ auto diff in the morning to trend WBC Rocephin Tylenol PRN cough 3. Stage IV colon cancer: Outpatient f/u with oncologist 4. h/o CHF: Continue Torsemide 5. T2DM: HgA1c 11.8 Hold oral hypoglycemics Insulin 70/30 25 unit SQ BID High dose correctional scale insulin AC HS for better glycemic coverage Accu Chek AC HS Hypoglycemia protocol Diabetic diet 6. Essential HTN: Currently normotensive Continue home regimen of oral antihypertensives 7. Hypothyroidism: Continue oral thyroid replacement therapy 8. CKD stage 3: Baseline serum Cr level 1.2, currently at 1.0 Avoid nephrotoxic agents Saline lock CMP in the morning to trend kidney functions 9. Parkinson's Disease: Continue Sinemet 10. Current cigarette smoker: [employer] patient on quitting cigarette smoking; Nicotine replacement therapy 11. JANET: Continue CPAP at night while patient is sleeping 12. Anemia, normocytic normochromic: cbc w/ auto diff in the morning to trend H/H 13. Coagulase negative staph bacteremia: Repeat blood culture on 10/27, no growth to date 2D echocardiogram: no signs of endocarditis Rocephin Tylenol PRN fever cbc w/ auto diff in the morning to trend WBC level 14. Constipation: Colace Senna Milk of magnesia PRN constipation Lactulose PRN constipation Suppository PRN constipation GI ppx: continue oral PPI from home regimen DVT ppx: Lovenox Code status: DNI Prognosis: stable Disposition: inpatient med surg Time Spent With Patient Time: Total time spent is greater than 50% in coordination of care (as documented) at patient's floor/unit and/or counseling patient: Total time spent with greater than 50% in coordination of care (as documented) at patient's floor/unit and/or counseling patient:: Greater than 35 minutes QUALITY VTE Deep Vein Thrombosis/Pulmonary Embolism Present on Admission: No
[2021-10-28] MEDS ORDERED: LORazepam 0.5 MG TABLET PO PRN (19:10)
[2021-10-28] MEDS: ACETAMINOPHEN 325 MG TABLET PO PRN (21:16)
[2021-10-28] MEDS: SENNOSIDES 1 TABLET PO SCH (21:16)
[2021-10-28] MEDS: PRAZOSIN 1 MG CAPSULE PO SCH (21:16)
[2021-10-28] MEDS: PRAMIPEXOLE 1 MG TABLET PO SCH (21:17)
[2021-10-28] MEDS: NICOTINE 14 MG PATCH TOPICAL SCH (21:19)
[2021-10-28] MEDS: METHOCARBAMOL 500 MG TABLET PO PRN (21:43)
[2021-10-29] MEDS: 0.9 % SODIUM CHLORIDE 10 ML SYRINGE IV SCH ×2 (05:44→10:06)
[2021-10-29 06:46] LABS: Basophils # (Auto) 0.02 K/mcL (0.00-0.30); Basophils % (Auto) 0.3 % (0.0-2.0); Eosinophils # (Auto) 0.04 K/mcL (0.00-0.70); Eosinophils % (Auto) 0.6 % (0.0-7.0); Hematocrit 36.2 % (34.1-44.9); Hemoglobin 11.4 g/dL (11.2-15.7); Lymphocytes # (Auto) 2.31 K/mcL (1.50-4.80); Lymphocytes % (Auto) 35.9 % (15.5-49.0); Mean Cell Volume 87.7 fL (80.0-100.0); Mean Corpuscular HGB Conc 31.5 g/dL (31.0-36.0); Mean Platelet Volume 10.9 fL (7.4-10.4); Monocytes # (Auto) 0.54 K/mcL (0.10-0.90); Monocytes % (Auto) 8.4 % (1.0-12.0); Neutrophils % (Auto) 54.8 % (38.0-78.0); Platelet Count 326 K/mcL (140-440); RBC 4.13 M/mcL (3.59-5.38); Red Cell Distribution Width 15.3 % (11.5-14.5); WBC 6.4 K/mcL (4.5-11.0)
[2021-10-29 07:15] LABS: ALT/SGPT 6 U/L (<40); AST/SGOT 48 U/L (<32); Albumin 2.4 gm/dL (3.2-5.2); Albumin/Globulin Ratio 0.8 (1.0-2.3); Alkaline Phosphatase 101 U/L (39-117); Bilirubin,Total < 0.2 mg/dL (0.1-1.0); Blood Urea Nitrogen 33 mg/dL (8-23); Calcium 8.1 mg/dL (8.6-10.4); Carbon Dioxide 31 mmol/L (22-30); Chloride 96 mmol/L (96-108); Globulin 3.1 gm/dL (2.2-3.7); Glomerular Filtration Rate 38; Glucose 71 mg/dL (70-105); Phosphorous 3.8 mg/dL (2.5-4.5)
[2021-10-29] MEDS: CARBIDOPA/LEVODOPA 25/100 TABLET PO SCH (08:39)
[2021-10-29] MEDS: cefTRIAXone 1 GM VIAL IV SCH (08:39)
[2021-10-29] MEDS: POTASSIUM CHLORIDE 20 MEQ TABLET PO SCH (08:40)
[2021-10-29] MEDS: hydrALAZINE 25 MG TABLET PO SCH (08:40)
[2021-10-29] MEDS: ASPIRIN 81 MG TAB.CHEW PO SCH (08:40)
[2021-10-29] MEDS: DOCUSATE SODIUM 100 MG CAPSULE PO SCH (08:40)
[2021-10-29] MEDS: OMEPRAZOLE 20 MG CAPSULE PO SCH (08:40)
[2021-10-29] MEDS: ALLOPURINOL 300 MG TABLET PO SCH (08:41)
[2021-10-29] MEDS: LORATADINE 10 MG TABLET PO SCH (08:41)
[2021-10-29] MEDS: SIMVASTATIN 10 MG TABLET PO SCH (08:41)
[2021-10-29] MEDS: MULTIVIT,THER IRON,CA,FA & MIN 1 TABLET PO SCH (08:41)
[2021-10-29] MEDS: ENOXAPARIN 40 MG/0.4 ML SYRINGE SQ SCH (08:42)
[2021-10-29] MEDS: LEVOTHYROXINE 25 MCG TABLET PO SCH (08:42)
[2021-10-29] MEDS: LISINOPRIL 5 MG TABLET PO SCH (08:42)
[2021-10-29] MEDS: COLCHICINE 0.6 MG CAPSULE PO SCH (08:42)
[2021-10-29] MEDS: ESCITALOPRAM 20 MG TABLET PO SCH (08:42)
[2021-10-29] MEDS: MUPIROCIN OINT 2% 22GM TOPICAL SCH (08:43)
[2021-10-29] MEDS: CLOTRIMAZOLE CRM 1% 1 DOSE TUBE TOPICAL SCH (08:43)
[2021-10-29] MEDS: FLUTICASONE PROPIONATE SPRAY.NAS NS SCH (08:45)
[2021-10-29] MEDS: INSULIN LISPRO 1 UNIT/0.01 ML UNIT SQ SCH ×2 (09:32→12:13)
[2021-10-29] MEDS: TORSEMIDE 10 MG TABLET PO SCH (10:04)
[2021-10-29] MEDS: INSULIN, 75/25 NPL/LISPRO 1 UNIT/0.01 ML UNIT SQ SCH (10:05)
--- NOTE | 2021-10-29 11:02 | Discharge Summary ---
Discharge Provider Provider Patient information: Note initiated : 10/29/21 at 10:59 am Service Date, if different from initiated Date: [] Patient: Patsy Lam 86 y/o F admitted on 10/24/21 for cough, fatigue,weakness, SOB. Chief Complaint: [] Date of admission: 10/24/21 20:00 Discharge date: 10/29/21 Primary care physician: Ryan Samson MD Attending physician on admission: Andrew Shah Consults: 10/24/21 Consult to Physician [CONS] Stat Comment: Consulting Provider: Andrew Shah Reason For Exam: Physician to Consult Attending physician on discharge: Andrew Shah Discharge Meds Discharge Medications Home Medications diabetic shoes #1 ea 03/19/21 [Rx Confirmed 10/25/21 Last Taken Unknown] Foam seat cushion #1 ea 05/06/21 [Rx Confirmed 10/25/21 Last Taken Unknown] escitalopram oxalate 20 mg tablet 20 mg PO QDAY 90 Days #90 tab 05/16/21 [Rx Confirmed 10/24/21 Last Taken 10/24/21 09:00] simvastatin 5 mg tablet 5 mg PO QDAY #90 tab 05/16/21 [Rx Confirmed 10/24/21 Last Taken 10/24/21 09:00] allopurinol 300 mg tablet 300 mg PO QDAY #90 tab 05/28/21 [Rx Confirmed 10/24/21 Last Taken 10/24/21 09:00] multivitamin 1 tab PO QDAY #90 tab 06/10/21 [Rx Confirmed 10/24/21 Last Taken 10/24/21 09:00] hydralazine 25 mg tablet 25 mg PO QDAY tab 07/30/21 [History Confirmed 10/24/21 Last Taken 10/24/21 09:00] glipizide 10 mg tablet 10 mg PO QDAY #90 tab 08/12/21 [Rx Confirmed 10/24/21 Last Taken 10/24/21 09:00] levothyroxine 13 mcg capsule 13 mcg PO QDAY #60 cap 08/19/21 [Rx Confirmed 10/24/21 Last Taken 10/24/21 09:00] torsemide 20 mg tablet 100 mg PO QDAY tab 08/19/21 [History Confirmed 10/24/21 Last Taken 10/24/21 09:00] loratadine 10 mg tablet (Allergy Relief (loratadine)) 10 mg PO QDAY #90 tab 08/22/21 [Rx Confirmed 10/24/21 Last Taken 10/24/21 09:00] omeprazole 20 mg capsule,delayed release 20 mg PO QDAY #90 cap 08/26/21 [Rx Confirmed 10/24/21 Last Taken 10/24/21 09:00] potassium chloride 20 mEq tablet,extended release 20 meq PO BID #180 tab 08/26/21 [Rx Confirmed 10/24/21 Last Taken 10/24/21 09:00] pramipexole 1 mg tablet See Rx Instructions .ROUTE .COMPLEX #90 tab 09/08/21 [Rx Confirmed 10/24/21 Last Taken 10/23/21 21:00] prazosin 2 mg capsule 2 mg PO QHS 90 Days #30 cap 10/06/21 [Rx Confirmed 10/24/21 Last Taken 10/23/21 21:00] blood sugar diagnostic (Blood Glucose Test) #100 ea 10/08/21 [Rx Confirmed 10/25/21 Last Taken Unknown] carbidopa 25 mg-levodopa 100 mg tablet (Sinemet) 1 tab PO TID #90 tab 10/14/21 [Rx Confirmed 10/24/21 Last Taken 10/24/21 09:00] aspirin 81 mg tablet 81 mg PO DAILY 10/24/21 [History Confirmed 10/24/21 Last Taken 10/24/21 09:00] insulin human U-100 NPH-regulr 70-30 mix 100 unit/mL subcutaneous susp (Novolin 70/30 U-100 Insulin) 25 unit SUBCUT BIDAC 10/24/21 [History Confirmed 10/24/21 Last Taken 10/24/21 09:00] clindamycin HCl 300 mg capsule 600 mg PO TID #30 cap 10/29/21 [Rx Last Taken Unknown] dextromethorphan-guaifenesin 10 mg-100 mg/5 mL oral liquid (Robafen DM Cough) 10 ml PO Q4HP PRN #500 ml 10/29/21 [Rx Last Taken Unknown] COURSE Hospital Course Hospital course: Ms. Cherie Paula is a 86 year old F h/o stage IV colon cancer, T2DM, CHF , CKD3, JANET on CPAP, Parkinson's Disease, Gout, essential HTN, hypothyroidism, current cigarette smoking status, p/w 5 days history of shaking chills, runny nose, shortness of breath, and productive cough with clear sputum. She is vaccinated against CoVID pneumonia. She was in her usual state of health until 5 days ago when she started to experience shaking chills, runny nose, shortness of breath, and productive cough with clear sputum. In addition, she is complaining of dysuria and increased urinary frequency. Vital signs significant for oxygen d esaturating to mid 80s on room air, with rest of the vital signs within normal limits. Labs significant for lack of leukocytosis with WBC 5.7. Serum Cr level 1.3, baseline 1.2. CXR showing near complete resolution of previously seen bilateral infiltrates with residual minor inflammation or fibrosis in both lung bases. 10/25: Afebrile overnight. Blood and urine cultures no growth to date. Currently on 3.5L/min oxygen. c/o improving SOB. c/o productive cough with white sputum. Denies chest pain. Denies wheezing. Denies fever, chills, or sweating. Denies anxiety. Denies dysuria. 10/26: Afebrile overnight. Blood culture: Coagulase negative staph; Urine culture no growth to date. Currently on 3.5L/min oxygen. c/o improving SOB. c/o productive cough with white sputum. Denies chest pain. Denies wheezing. Denies fever, chills, or sweating. Denies anxiety. Denies dysuria. 10/27: Afebrile overnight. Blood culture: Coagulase negative staph; Urine culture no growth to date. On room air currently. Denies shortness of breath. Denies any cough, sputum production, or respiratory wheezing. Denies chest pain. Denies wheezing. Denies fever, chills, or sweating. Denies anxiety. Denies dysuria. Continue Rocephin. D/c Remdesivir and Dexamethasone. 10/28: Afebrile overnight. Currently on room air; was on 2L/min oxygen overnight. Blood culture: Coagulase negative staph; Repeat blood culture on 10/27, no growth to date; Urine culture no growth to date. Denies shortness of breath. c/o nonproductive cough. Denies respiratory wheezing. c/o mild chest pressure. Denies fever, chills, or sweating. c/o constipation. Denies anxiety. Denies dysuria. Refused SNF placement. Continue Rocephin. 10/29: Reached clinical stability. Been afebrile for more than 24 hours, any leukocytosis resolved. Tolerating room air. Decision made to discharge her home with home health, and Rx including antibiotics sent to pharmacy. 2 week PCP follow up appointment made for her. All questions were answered prior to patient being physically discharged. Discharge diagnosis: UTI, bacteremia, CoVID pneumonia. Time Spent with Patient Time attestation: Total time spent providing and/or coordinating discharge services: Time spent: Less than 30 minutes EXAM Constitutional Vitals: Temp Pulse Resp BP Pulse Ox 36.4 C 64 20 149/59 94 10/29/21 07:43 10/29/21 07:43 10/29/21 07:43 10/29/21 07:43 10/29/21 07:43 General appearance: cooperative and no acute distress Head Head exam: Present atraumatic and normocephalic Eye Eye exam: Present EOMI and PERRL ENT ENT exam: Present mucous membranes moist, normal exam and normal external ear exam Neck Neck exam: Present normal inspection; Absent lymphadenopathy, tenderness or thyromegaly Respiratory Respiratory exam: Absent accessory muscle use, respiratory distress or wheezes Cardiovascular Cardiovascular exam: Present normal rate and rhythm; Absent JVD GI/Abdominal GI/Abdominal exam: Present normal bowel sounds and soft; Absent organomegaly or tenderness Extremities Exam Extremities exam: Present full ROM, normal capillary refill and normal inspection; Absent tenderness Neurological Exam Neurological exam: Present alert, CN II-XII intact and oriented X3; Absent motor sensory deficit Psychiatric Psychiatric exam: Present normal affect and normal mood; Absent anxious or depressed Skin Skin exam: Present dry and intact Discharge Data Data Completed and Pending Labs on day of discharge: Labs from last 24 hours 10/29/21 10/29/21 05:30 05:30 WBC 6.4 RBC 4.13 Hgb 11.4 Hct 36.2 MCV 87.7 MCH 27.6 MCHC 31.5 RDW 15.3 H Plt Count 326 MPV 10.9 H Neut % (Auto) 54.8 Lymph % (Auto) 35.9 [place] % (Auto) 8.4 Eos % (Auto) 0.6 Baso % (Auto) 0.3 Lymph # (Auto) 2.31 [place] # (Auto) 0.54 Eos # (Auto) 0.04 Baso # (Auto) 0.02 Absolute Neutrophils 3.52 Sodium 136 Potassium 4.2 Chloride 96 Carbon Dioxide 31 H Anion Gap 9.0 BUN 33 H Creatinine 1.3 H GFR Calculation 38 Glucose 71 Calcium 8.1 L Phosphorus 3.8 Magnesium 2.4 Total Bilirubin < 0.2 AST 48 H ALT 6 Alkaline Phosphatase 101 Total Protein 5.5 L Albumin 2.4 L Globulin 3.1 Albumin/Globulin Ratio 0.8 L Preliminary micro results at discharge 10/27/21 05:25 Blood Culture - Preliminary Blood 10/27/21 05:20 Blood Culture - Preliminary Blood 10/24/21 20:29 Blood Culture - Preliminary Blood 10/24/21 20:24 Blood Culture - Preliminary Blood Coagulase negative staph Discharge Plan Patient/Caregiver Discharge Instructions Activity: increase activity as tolerated Diet: Regular Diet Prescriptions: New dextromethorphan-guaifenesin [Robafen DM Cough] 10-100 mg/5 mL Liquid 10 ml PO Q4HP PRN (Reason: Cough) Qty: 500 0RF clindamycin HCl 300 mg capsule 600 mg PO TID Qty: 30 0RF Continued allopurinol 300 mg tablet 300 mg PO QDAY Qty: 90 3RF multivitamin Tablet 1 tab PO QDAY Qty: 90 0RF Rx Instructions: Please put in med box for her. glipizide 10 mg tablet 10 mg PO QDAY Qty: 90 0RF levothyroxine 13 mcg capsule 13 mcg PO QDAY Qty: 60 0RF torsemide 20 mg tablet 100 mg PO QDAY 0RF loratadine [Allergy Relief (loratadine)] 10 mg tablet 10 mg PO QDAY Qty: 90 3RF potassium chloride 20 mEq tablet extended release 20 meq PO BID Qty: 180 1RF Label Comments: with food omeprazole 20 mg capsule,delayed release(DR/EC) 20 mg PO QDAY Qty: 90 1RF pramipexole 1 mg tablet See Rx Instructions .ROUTE .COMPLEX Qty: 90 0RF Dose Instruction: TAKE 1 TABLET BY MOUTH EVERY NIGHT AT BEDTIME Rx Instructions: TAKE 1 TABLET BY MOUTH EVERY NIGHT AT BEDTIME prazosin 2 mg capsule 2 mg PO QHS 90 Days Qty: 30 0RF (DME) Blood Glucose Test Strip See Rx Instructions .ROUTE .MEDSUPPLY Qty: 100 3RF Rx Instructions: use to test blood sugar twice daily carbidopa-levodopa [Sinemet] 25-100 mg tablet 1 tab PO TID Qty: 90 1RF (DME) diabetic shoes See Rx Instructions .Route .MEDSUPPLY Qty: 1 0RF Rx Instructions: use daily escitalopram oxalate 20 mg tablet 20 mg PO QDAY 90 Days Qty: 90 2RF simvastatin 5 mg tablet 5 mg PO QDAY Qty: 90 3RF hydralazine 25 mg tablet 25 mg PO QDAY 0RF (DME) Foam seat cushion See Rx Instructions .Route .MEDSUPPLY Qty: 1 0RF Rx Instructions: As directed for buttocks pressure ulcer aspirin 81 mg Tablet 81 mg PO DAILY 0RF Novolin 70/30 U-100 Insulin 100 unit/mL (70-30) suspension 25 unit SUBCUT BIDAC 0RF Follow Up Plan Follow up with: Ryan Samson MD [Primary Care Provider] - Patient Disposition: Home Health Service Prognosis: Fair Rehab Potential: Good I certify that the patient requires SNF services: No Overall status at discharge: patient is progressing back to baseline Discharge Orders: Discharge Order (Routine); Ordered 10/29/21 Ordered By: Andrew STRATTON VTE Deep Vein Thrombosis/Pulmonary Embolism Present on Admission: No
[2021-10-29] MEDS ORDERED: HEPARIN SODIUM,PORCINE/PF 500 UNIT/5 ML SYRINGE IV ONE (12:40)
== END 2021-10-29 13:15 | disposition home health service (06) | DRG 177 ==
LOC: ED 13:05 → MEDSUR 20:00
PROVIDERS: ADMIT Internal Medicine; ATTEND Internal Medicine

== ENCOUNTER 2021-10-30 09:02 | Inpatient (IN) ==
[2021-10-30] MEDS ORDERED: IOPAMIDOL 100 ML BOTTLE IV ONE (09:03)
[2021-10-30] MEDS ORDERED: 0.9 % SODIUM CHLORIDE 1,000 ML IV ONE (09:47)
[2021-10-30] MEDS ORDERED: morphine 4 MG/ML VIAL IV ONE (09:47)
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
[2021-10-30] MEDS ORDERED: HYDROmorphone 1 MG/ML SYRINGE IV ONE ×2 (10:13→11:22)
[2021-10-30 10:18] LABS: POC Blood Urea Nitrogen 36 mg/dL (6-20); POC CO2 30 mmol/L (22-30); POC Calcium, Ionized 1.16 mmEq/L (1.16-1.32); POC Chloride 96 mEq/L (96-108); POC Creatinine 1.4 mg/dL (0.6-1.2); POC Glucose, Random 136 mg/dL (70-105); POC Hematocrit 40 % (36-48); POC Potassium 4.1 mEql/L (3.3-5.1); POC Sodium 136 mEq/L (133-145)
[2021-10-30 10:55] LABS: Basophils # (Auto) 0.03 K/mcL (0.00-0.30); Basophils % (Auto) 0.3 % (0.0-2.0); Eosinophils # (Auto) 0.06 K/mcL (0.00-0.70); Eosinophils % (Auto) 0.6 % (0.0-7.0); Hematocrit 39.9 % (34.1-44.9); Hemoglobin 12.4 g/dL (11.2-15.7); Lymphocytes # (Auto) 1.82 K/mcL (1.50-4.80); Lymphocytes % (Auto) 17.2 % (15.5-49.0); Mean Cell Volume 88.3 fL (80.0-100.0); Mean Corpuscular HGB Conc 31.1 g/dL (31.0-36.0); Mean Platelet Volume 11.1 fL (7.4-10.4); Monocytes % (Auto) 5.7 % (1.0-12.0); Neutrophils % (Auto) 76.2 % (38.0-78.0); Platelet Count 393 K/mcL (140-440); RBC 4.52 M/mcL (3.59-5.38); Red Cell Distribution Width 15.1 % (11.5-14.5); WBC 10.6 K/mcL (4.5-11.0)
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
[2021-10-30 11:09] LABS: ALT/SGPT 22 U/L (<40); AST/SGOT 35 U/L (<32); Albumin 3.1 gm/dL (3.2-5.2); Alkaline Phosphatase 124 U/L (39-117); Bilirubin,Direct < 0.2 mg/dL (0-0.3); Bilirubin,Total 0.2 mg/dL (0.1-1.0); Creatine Kinase 92 U/L (24-170); Globulin 3.3 gm/dL (2.2-3.7)
--- NOTE | 2021-10-30 11:11 | XRay Report ---
CLINICAL INFORMATION: Trauma COMPARISON: 10/24/2021 TECHNIQUE: Portable FINDINGS: Mild cardiomegaly is unchanged. Left IJ Port-A-Cath tip overlies the SVC right atrial junction expected location. Mediastinum and pulmonary vessels are normal. There is minor bibasilar atelectasis. Lungs otherwise clear. No effusions or evidence of pneumothorax. IMPRESSION: Mild stable cardiomegaly. No acute cardiopulmonary disease or posttraumatic change. Interpreted and Authenticated by: Alec Wesley 10/30/21
--- NOTE | 2021-10-30 11:15 | XRay Report ---
CLINICAL INFORMATION: Trauma COMPARISON: 03/31/2020 FINDINGS: Total knee prosthesis stable satisfactory position without evidence of loosening or infection. There is no fracture or other osseous abnormality. A few loose bodies are seen in the tibiofemoral joint ranging up to 1 cm. These are chronic. IMPRESSION: No fracture or acute posttraumatic change. Interpreted and Authenticated by: Alec Wesley 10/30/21
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
[2021-10-30 11:43] LABS: Appearance,Urine HAZY (Clear); Bilirubin,Urine Negative (Negative); Color,Urine YELLOW; Culture Indicated,Urine No; Glucose,Urine (UA) Negative (Negative); Ketones,Urine Negative (Negative); Leukocyte Esterase,Urine Negative /uL (Negative); Mucus,Urine FEW /hpf; Nitrate,Urine Negative (Negative); Protein,Urine 30 mg/dL (Negative); Specific Gravity,Urine 1.012 (1.000-1.035); Urine Blood Negative (Negative); Urine Hyaline Cast 4 /lph (0-2); Urine RBC < 1 /hpf (0-3); Urine Squamous Epithelial Cell 2 /hpf (0-4); Urine WBC 3 /hpf (0-4); Urobilinogen,Urine Negative
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
[2021-10-30] MEDS ORDERED: guaiFENesin/DEXTROMETHORPHAN ORAL SOL PO PRN (13:59)
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
[2021-10-30] MEDS ORDERED: DEXTROSE 31 GM ORAL.SUSP PO PRN (14:40)
[2021-10-30] MEDS ORDERED: ZOLPIDEM 5 MG TABLET PO PRN (14:40)
[2021-10-30] MEDS ORDERED: ONDANSETRON 4 MG/2 ML VIAL IV PRN (14:40)
[2021-10-30] MEDS ORDERED: IPRATROPIUM/ALBUTEROL 3 ML AMPUL.NEB NEB PRN (14:40)
[2021-10-30] MEDS ORDERED: DEXTROSE 50% 50 ML VIAL IV PRN (14:40)
[2021-10-30] MEDS ORDERED: morphine 4 MG/ML VIAL IV PRN (14:40)
[2021-10-30] MEDS: CARBIDOPA/LEVODOPA 25/100 TABLET PO SCH ×2 (15:47→21:19)
[2021-10-30] MEDS: CLINDAMYCIN 150 MG CAPSULE PO SCH ×2 (15:47→21:19)
[2021-10-30] MEDS: 0.9 % SODIUM CHLORIDE 1,000 ML IV SCH (15:49)
[2021-10-30] MEDS: INSULIN, 75/25 NPL/LISPRO 1 UNIT/0.01 ML UNIT SQ SCH ×2 (17:10→20:04)
[2021-10-30] MEDS: INSULIN LISPRO 1 UNIT/0.01 ML UNIT SQ SCH ×2 (17:11→20:02)
[2021-10-30] MEDS: POTASSIUM CHLORIDE 20 MEQ TABLET PO SCH (17:13)
[2021-10-30] MEDS: COLCHICINE 0.6 MG CAPSULE PO SCH (21:19)
[2021-10-30] MEDS: PRAZOSIN 1 MG CAPSULE PO SCH (21:19)
[2021-10-30] MEDS: PRAMIPEXOLE 1 MG TABLET PO SCH (21:19)
[2021-10-30] MEDS: SENNOSIDES 1 TABLET PO SCH (21:19)
[2021-10-30] MEDS: hydrALAZINE 25 MG TABLET PO SCH (21:20)
[2021-10-30] MEDS: DOCUSATE SODIUM 100 MG CAPSULE PO SCH (21:20)
[2021-10-30] MEDS: ACETAMINOPHEN 325 MG TABLET PO PRN (21:20)
[2021-10-30] MEDS: SIMVASTATIN 10 MG TABLET PO SCH (21:20)
[2021-10-30] MEDS: HEPARIN 5,000 UNIT/ML VIAL SQ SCH (21:21)
[2021-10-30] MEDS: 0.9 % SODIUM CHLORIDE 10 ML SYRINGE IV SCH (21:23)
[2021-10-31] MEDS: 0.9 % SODIUM CHLORIDE 1,000 ML IV SCH ×3 (02:16→22:03)
[2021-10-31] MEDS: 0.9 % SODIUM CHLORIDE 10 ML SYRINGE IV SCH ×3 (05:14→21:03)
[2021-10-31 06:51] LABS: Basophils # (Auto) 0.06 K/mcL (0.00-0.30); Eosinophils # (Auto) 0.12 K/mcL (0.00-0.70); Hematocrit 34.3 % (34.1-44.9); Hemoglobin 10.6 g/dL (11.2-15.7); Lymphocytes # (Auto) 1.57 K/mcL (1.50-4.80); Mean Corpuscular HGB Conc 30.9 g/dL (31.0-36.0); Monocytes # (Auto) 0.49 K/mcL (0.10-0.90); Monocytes % (Auto) 8.1 % (1.0-12.0); Neutrophils % (Auto) 62.9 % (38.0-78.0); Platelet Count 340 K/mcL (140-440); RBC 3.81 M/mcL (3.59-5.38); Red Cell Distribution Width 15.5 % (11.5-14.5)
[2021-10-31 07:17] LABS: ALT/SGPT < 5 U/L (<40); AST/SGOT 29 U/L (<32); Albumin 2.4 gm/dL (3.2-5.2); Albumin/Globulin Ratio 0.8 (1.0-2.3); Alkaline Phosphatase 108 U/L (39-117); Bilirubin,Total 0.2 mg/dL (0.1-1.0); Blood Urea Nitrogen 26 mg/dL (8-23); Calcium 8.1 mg/dL (8.6-10.4); Carbon Dioxide 28 mmol/L (22-30); Chloride 101 mmol/L (96-108); Glomerular Filtration Rate 46; Glucose 52 mg/dL (70-105)
[2021-10-31] MEDS: INSULIN LISPRO 1 UNIT/0.01 ML UNIT SQ SCH ×4 (08:37→20:56)
[2021-10-31] MEDS: CARBIDOPA/LEVODOPA 25/100 TABLET PO SCH ×3 (08:38→21:01)
[2021-10-31] MEDS: LORATADINE 10 MG TABLET PO SCH (08:38)
[2021-10-31] MEDS: CLINDAMYCIN 150 MG CAPSULE PO SCH ×3 (08:38→21:02)
[2021-10-31] MEDS: MULTIVIT,THER IRON,CA,FA & MIN 1 TABLET PO SCH (08:39)
[2021-10-31] MEDS: ALLOPURINOL 300 MG TABLET PO SCH (08:39)
[2021-10-31] MEDS: glipiZIDE 5 MG TABLET PO SCH (08:39)
[2021-10-31] MEDS: ASPIRIN 81 MG TAB.CHEW PO SCH (08:39)
[2021-10-31] MEDS: ESCITALOPRAM 20 MG TABLET PO SCH (08:39)
[2021-10-31] MEDS: hydrALAZINE 25 MG TABLET PO SCH ×2 (08:39→21:01)
[2021-10-31] MEDS: COLCHICINE 0.6 MG CAPSULE PO SCH ×2 (08:39→21:01)
[2021-10-31] MEDS: OMEPRAZOLE 20 MG CAPSULE PO SCH (08:39)
[2021-10-31] MEDS: LEVOTHYROXINE 25 MCG TABLET PO SCH (08:40)
[2021-10-31] MEDS: POTASSIUM CHLORIDE 20 MEQ TABLET PO SCH ×2 (08:41→17:03)
[2021-10-31] MEDS: DOCUSATE SODIUM 100 MG CAPSULE PO SCH ×2 (08:42→21:01)
[2021-10-31] MEDS: HEPARIN 5,000 UNIT/ML VIAL SQ SCH ×2 (08:46→21:01)
[2021-10-31] MEDS: NICOTINE 14 MG PATCH TD SCH ×2 (08:48→08:50)
--- NOTE | 2021-10-31 10:16 | Internal Med Progress Note ---
SUBJECTIVE Subjective Patient information: Note initiated : 10/31/21 at 10:11 am Service Date, if different from initiated Date: [] Patient: Patsy Lam a 86 y/o F admitted on 10/30/21 for Fall. Chief Complaint: [] Interval history: Ms. Cherie Paula is a 86 year old F stage IV colon cancer, T2DM, CHF , CKD3, JANET on CPAP, Parkinson's Disease, Gout, essential HTN, hypothyroidism, current cigarette smoking status, recently admitted to our facility under my care from 10/24- for CoVID pneumonia, UTI, and coagulase negative staph bacteremia. She was being treated with supplemental oxygen therapy, dexamethasone, and Remdesivir for CoVID pneumonia, and Rocephin for UTI and bacteremia. 2D echocardiogram was performed and no signs of endocarditis was seen. She was being discharged with clindamycin PO to finish a 2 week course for bacteremia. PT initially recommended SNF placement, but patient refused, so arrangement for home health therapy was instead made. Last night patient claimed that when she woke up from bed and went to bathroom, she was still tired and sleepy and hence fell. She denied any LOC. Denies any chest pain, palpitation, or SOB. She was to weak to get up by herself or call for help so she lying on the ground with feces. She was being found the next morning, and being sent to our ED for re- evaluation. Extensive workup was performed in the ED and no new intracranial pathologies was found. Labs showing serum Cr level of 1.4, and it was 1.3 yesterday at discharge, with rest of the labs no change from yesterday. Patient agreed to be admitted for SNF/rehab placement. Due to recent CoVID infection, she would have to wait until at least 11/04/21. 10/31: Afebrile overnight. On 2L/min oxygen. On clindamycin. Denies SOB, cough, or wheezing. Denies chest pain or palpitation. Denies fever, chills, or sweating. c/o general body weakness. Physical therapy: SNF/rehab placement, pending. Constitutional Vitals: Vital Signs Temp Pulse Resp BP Pulse Ox 36.4 C 69 16 146/62 95 10/31/21 07:20 10/31/21 07:20 10/31/21 07:20 10/31/21 07:20 10/31/21 07:20 Period Temp Pulse Resp BP Sys/Simmons Pulse Ox Last 24 Hr 36.3 C-36.6 C 54-75 16-18 87-183/35-127 90-100 Intake and Output 10/30/21 10/31/21 10/31/21 21:59 05:59 13:59 Intake Total 1000 1200 240 Balance 1000 1200 240 Weight 117.96 kg Intake & Output: Intake & Output 10/30/21 10/31/21 10/31/21 21:59 05:59 13:59 Intake Total 1000 1200 240 Balance 1000 1200 240 Weight 117.96 kg Intake: IV 1000 1000 Sodium Chloride 0.9% 1,000 ml @ 1000 1000 100 mls/hr IV .Q10H [facility] Rx#: [id number] Oral 200 240 Other: Urine Appearance Clear Urine Color Bright Yellow Urine Odor Normal Stool Size Small Stool Color Brown Stool Consistency Soft # Voids 1 1 1 # Bowel Movements 1 General appearance: cooperative, no acute distress and obese Head Head exam: Present atraumatic and normal inspection Eye Eye exam: Present normal appearance ENT ENT exam: Present mucous membranes moist, normal exam and normal external ear exam Additional comments: Nasal cannula in place Neck Neck exam: Present normal inspection Respiratory Respiratory exam: Present decreased breath sounds Cardiovascular Cardiovascular exam: Present normal rate and rhythm GI/Abdominal GI/Abdominal exam: Present normal bowel sounds Back Exam Back exam: Present normal inspection Neurological Exam Neurological exam: Present alert and oriented X3 Skin Skin exam: Present intact and warm OBJ DATA Labs CBC & Chem 7: 10/31/21 05:16 10/31/21 05:16 Labs: Abnormal Lab Results 10/31/21 10/31/21 10/30/21 05:16 05:16 10:34 Hgb 10.6 L MCHC 30.9 L RDW 15.5 H MPV 11.0 H Absolute Neutrophils Anion Gap 6.0 L POC BUN BUN 26 H POC Creatinine Glucose 52 L POC Glucose Calcium 8.1 L AST Alkaline Phosphatase Total Protein 5.4 L Albumin 2.4 L Albumin/Globulin Ratio 0.8 L Urine Appearance Hazy A Urine Protein 30 A Hyaline Casts 4 H Urine Mucus Few A 10/30/21 10/30/21 10:04 10:04 Hgb MCHC RDW 15.1 H MPV 11.1 H Absolute Neutrophils 8.06 H Anion Gap POC BUN 36 H BUN POC Creatinine 1.4 H Glucose POC Glucose 136 H Calcium AST 35 H Alkaline Phosphatase 124 H Total Protein Albumin 3.1 L Albumin/Globulin Ratio Urine Appearance Urine Protein Hyaline Casts Urine Mucus Meds: Medications Acetaminophen (Acetaminophen 325 Mg Tablet) 650 mg PO Q6HP PRN; Protocol PRN Reason: Per Pain Protocol/Fever > 101 Last Admin: 10/30/21 21:20 Dose: 650 mg Documented by: Albuterol/Ipratropium (Ipratropium/Albuterol 3 Ml Ampul.Neb) 3 ml NEB Q4HRT PRN PRN Reason: Wheezing Allopurinol (Allopurinol 300 Mg Tablet) 300 mg PO QDAY [facility] Last Admin: 10/31/21 08:39 Dose: 300 mg Documented by: Aspirin (Aspirin 81 Mg Tab.Chew) 81 mg PO DAILY [facility] Last Admin: 10/31/21 08:39 Dose: 81 mg Documented by: Carbidopa/Levodopa (Carbidopa/Levodopa 25/100 Tablet) 1 tab PO TID [facility] Last Admin: 10/31/21 08:38 Dose: 1 tab Documented by: Clindamycin HCl (Clindamycin 150 Mg Capsule) 600 mg PO TID [facility] Last Admin: 10/31/21 08:38 Dose: 600 mg Documented by: Colchicine (Colchicine 0.6 Mg Capsule) 0.6 mg PO BID [facility] Last Admin: 10/31/21 08:39 Dose: 0.6 mg Documented by: Dextrose (Dextrose 50% 50 Ml Vial) 0 ml IV UD PRN PRN Reason: Hypoglycemia Diagnostic Test (Pha) (Accu-Chek 1 Each Strip) 1 each FS ACHS [facility] Last Admin: 10/31/21 08:34 Dose: 1 each Documented by: Docusate Sodium (Docusate Sodium 100 Mg Capsule) 100 mg PO BID [facility] Last Admin: 10/31/21 08:42 Dose: 100 mg Documented by: Escitalopram Oxalate (Escitalopram 20 Mg Tablet) 20 mg PO QDAY [facility] Last Admin: 10/31/21 08:39 Dose: 20 mg Documented by: Glipizide (Glipizide 5 Mg Tablet) 10 mg PO QAMAC [facility] Last Admin: 10/31/21 08:39 Dose: 10 mg Documented by: Glucose (Dextrose 31 Gm Oral.Susp) 15 gm PO PRN PRN PRN Reason: Hypoglycemia Guaifenesin (Guaifenesin/Dextromethorphan Oral Honey) 10 ml PO Q4HP PRN PRN Reason: Cough Last Admin: 10/30/21 21:24 Dose: 10 ml Documented by: Heparin Sodium (Porcine) (Heparin 5,000 Unit/Ml Vial) 5,000 unit SQ Q12 [facility] Last Admin: 10/31/21 08:46 Dose: 5,000 unit Documented by: Hydralazine HCl (Hydralazine 25 Mg Tablet) 25 mg PO BID [facility] Last Admin: 10/31/21 08:39 Dose: 25 mg Documented by: Sodium Chloride (Sodium Chloride 0.9%) 1,000 mls @ 100 mls/hr IV .Q10H [facility] Last Admin: 10/31/21 02:16 Dose: 100 mls/hr Documented by: Insulin Human Lispro (Insulin Lispro 1 Unit/0.01 Ml Unit) 0 unit SQ ACHS [facility]; Protocol Last Admin: 10/31/21 08:37 Dose: Not Given Documented by: Insulin Lispro Protam/Lispro Human (Insulin, 75/25 Npl/Lispro 1 Unit/0.01 Ml Unit) 25 unit SQ BIDAC [facility] Last Admin: 10/30/21 20:04 Dose: 25 unit Documented by: Iron Carb/Multivit/[place]/Folic Acid (Multivit,Ther Iron,Ca,Fa & Min 1 Tablet) 1 tab PO DAILY [facility] Last Admin: 10/31/21 08:39 Dose: 1 tab Documented by: Levothyroxine Sodium (Levothyroxine 25 Mcg Tablet) 37.5 mcg PO QAMAC [facility] Last Admin: 10/31/21 08:40 Dose: 37.5 mcg Documented by: Loratadine (Loratadine 10 Mg Tablet) 10 mg PO QDAY [facility] Last Admin: 10/31/21 08:38 Dose: 10 mg Documented by: Morphine Sulfate (Morphine 4 Mg/Ml Vial) 4 mg IV Q4HP PRN; Protocol PRN Reason: Per Pain Protocol Nicotine (Nicotine 14 Mg Patch) 14 mg TD QDAY [facility] Last Admin: 10/31/21 08:50 Dose: Not Given Documented by: Omeprazole (Omeprazole 20 Mg Capsule) 20 mg PO QDAY [facility] Last Admin: 10/31/21 08:39 Dose: 20 mg Documented by: Ondansetron HCl (Ondansetron 4 Mg/2 Ml Vial) 4 mg IV Q6HP PRN PRN Reason: Nausea And Vomiting Potassium Chloride (Potassium Chloride 20 Meq Tablet) 20 meq PO BIDCC [facility] Last Admin: 10/31/21 08:41 Dose: 20 meq Documented by: Pramipexole Dihydrochloride (Pramipexole 1 Mg Tablet) 1 mg PO [facility] Last Admin: 10/30/21 21:19 Dose: 1 mg Documented by: Prazosin HCl (Prazosin 1 Mg Capsule) 2 mg PO [facility] Last Admin: 10/30/21 21:19 Dose: 2 mg Documented by: Senna (Sennosides 1 Tablet) 2 tab PO [facility] Last Admin: 10/30/21 21:19 Dose: 2 tab Documented by: Simvastatin (Simvastatin 10 Mg Tablet) 5 mg PO [facility] Last Admin: 10/30/21 21:20 Dose: 5 mg Documented by: Sodium Chloride (0.9 % Sodium Chloride 10 Ml Syringe) 10 ml IV Q8 [facility] Last Admin: 10/31/21 05:14 Dose: Not Given Documented by: Zolpidem Tartrate (Zolpidem 5 Mg Tablet) 5 mg PO HSP PRN PRN Reason: Insomnia A/P Assessment and plan (1) Fall: Status: Acute (2) Tobacco dependence: Status: Acute (3) Diabetes mellitus with neuropathy: Status: Chronic Qualifiers: Diabetes mellitus type: type 2 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: with ferry terminal supervisor use Qualified Code(s): E11.40 - Type 2 diabetes mellitus with diabetic neuropathy, unspecified; Z79.4 - detention (current) use of insulin (4) Stage 3 chronic kidney disease: Status: Chronic Qualifiers: Chronic kidney disease stage 3 subtype: unspecified whether 3a or 3b Qualified Code(s): N18.30 - Chronic kidney disease, stage 3 unspecified (5) Gout: Status: Chronic Qualifiers: Gout site: toe Gout etiology: unspecified cause Chronicity: acute Laterality: right Qualified Code(s): M10.9 - Gout, unspecified (6) Hypothyroidism: Status: Chronic Qualifiers: Hypothyroidism type: unspecified Qualified Code(s): E03.9 - Hypothyroidism, unspecified (7) Hypertension: Status: Chronic Qualifiers: Hypertension type: essential hypertension Qualified Code(s): I10 - Essential (primary) hypertension (8) CHF (congestive heart failure): Status: Chronic Qualifiers: Heart failure type: unspecified Heart failure chronicity: chronic Qualified Code(s): I50.9 - Heart failure, unspecified (9) Hyperlipidemia: Status: Chronic (10) Parkinson's disease: Status: Acute (11) Coag negative Staphylococcus bacteremia: Status: Acute (12) JANET on CPAP: Status: Acute (13) Stage 1 acute kidney injury: Status: Acute Narrative A/P Narrative: Assessment and Plans: 1. 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 Coagulase negative staph bacteremia: Repeat blood culture on 10/27, no growth to date 2D echocardiogram: no signs of endocarditis Clindamycin PO Tylenol PRN fever cbc w/ auto diff in the morning to trend WBC level 3. Stage IV colon cancer: Outpatient f/u with oncologist 4. h/o CHF, stable: Currently on room air Hold oral diuretics and instead start IV fluid NS@100cc/hr for OLMAN on CKD, see #5 5. Stage 1 acute kidney injury on CKD3: Baseline serum Cr level 1.2, 1.4 at admission, currently at 1.1 Avoid nephrotoxic agents Hold oral diuretics and instead start IV fluid NS@100cc/hr CMP in the morning to trend kidney functions 6. T2DM: HgA1c 11.8 Hold oral hypoglycemics Insulin 70/30 25 unit SQ BID Low dose correctional scale insulin AC HS for better glycemic coverage Accu Chek AC HS Hypoglycemia protocol Diabetic diet 7. Essential HTN: Currently normotensive Continue home regimen of oral antihypertensives 8. Hypothyroidism: Continue oral thyroid replacement therapy 9. Parkinson's Disease: Continue Sinemet 10. 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 JANET: Continue CPAP at night while patient is sleeping 12. Anemia, normocytic normochromic: cbc w/ auto diff in the morning to trend H/H GI ppx: continue oral PPI from home regimen DVT ppx: Heparin Code status: DNI Prognosis: stable Disposition: inpatient med surg; pending SNF rehab placement Time Spent With Patient Time: Total time spent is greater than 50% in coordination of care (as documented) at patient's floor/unit and/or counseling patient: Total time spent with greater than 50% in coordination of care (as documented) at patient's floor/unit and/or counseling patient:: Greater than 35 minutes QUALITY VTE Deep Vein Thrombosis/Pulmonary Embolism Present on Admission: No
[2021-10-31] MEDS: INSULIN, 75/25 NPL/LISPRO 1 UNIT/0.01 ML UNIT SQ SCH ×2 (11:58→17:10)
[2021-10-31] MEDS: ACETAMINOPHEN 325 MG TABLET PO PRN ×2 (12:08→21:06)
[2021-10-31] MEDS: PRAMIPEXOLE 1 MG TABLET PO SCH (21:01)
[2021-10-31] MEDS: SENNOSIDES 1 TABLET PO SCH (21:01)
[2021-10-31] MEDS: SIMVASTATIN 10 MG TABLET PO SCH (21:02)
[2021-10-31] MEDS: PRAZOSIN 1 MG CAPSULE PO SCH (21:02)
[2021-11-01] MEDS: 0.9 % SODIUM CHLORIDE 10 ML SYRINGE IV SCH ×3 (05:12→21:18)
[2021-11-01] MEDS: glipiZIDE 5 MG TABLET PO SCH (07:41)
[2021-11-01] MEDS: POTASSIUM CHLORIDE 20 MEQ TABLET PO SCH ×2 (07:41→17:52)
[2021-11-01] MEDS: LEVOTHYROXINE 25 MCG TABLET PO SCH (07:42)
[2021-11-01] MEDS: INSULIN LISPRO 1 UNIT/0.01 ML UNIT SQ SCH ×4 (07:42→21:21)
[2021-11-01] MEDS: 0.9 % SODIUM CHLORIDE 1,000 ML IV SCH (07:56)
[2021-11-01] MEDS: INSULIN, 75/25 NPL/LISPRO 1 UNIT/0.01 ML UNIT SQ SCH ×2 (07:59→17:06)
[2021-11-01] MEDS: CLINDAMYCIN 150 MG CAPSULE PO SCH ×2 (08:28→15:39)
[2021-11-01] MEDS: ASPIRIN 81 MG TAB.CHEW PO SCH (08:29)
[2021-11-01] MEDS: LORATADINE 10 MG TABLET PO SCH (08:29)
[2021-11-01] MEDS: hydrALAZINE 25 MG TABLET PO SCH ×2 (08:29→21:17)
[2021-11-01] MEDS: OMEPRAZOLE 20 MG CAPSULE PO SCH (08:29)
[2021-11-01] MEDS: DOCUSATE SODIUM 100 MG CAPSULE PO SCH ×2 (08:29→21:17)
[2021-11-01] MEDS: CARBIDOPA/LEVODOPA 25/100 TABLET PO SCH ×3 (08:29→21:17)
[2021-11-01] MEDS: MULTIVIT,THER IRON,CA,FA & MIN 1 TABLET PO SCH (08:29)
[2021-11-01] MEDS: ALLOPURINOL 300 MG TABLET PO SCH (08:29)
[2021-11-01] MEDS: ESCITALOPRAM 20 MG TABLET PO SCH (08:29)
[2021-11-01] MEDS: COLCHICINE 0.6 MG CAPSULE PO SCH ×2 (08:29→21:17)
[2021-11-01] MEDS: HEPARIN 5,000 UNIT/ML VIAL SQ SCH ×2 (08:29→21:16)
[2021-11-01] MEDS: ACETAMINOPHEN 325 MG TABLET PO PRN ×3 (08:30→21:17)
[2021-11-01] MEDS: NICOTINE 14 MG PATCH TD SCH (08:31)
--- NOTE | 2021-11-01 17:38 | Internal Med Progress Note ---
SUBJECTIVE Subjective Patient information: Note initiated : 11/01/21 at 5:28 pm Service Date, if different from initiated Date: [] Patient: Patsy Lam a 86 y/o F admitted on 10/30/21 for Fall. Chief Complaint: f/u COVID-19 Interval history: Ms. Cherie Paula is a 86 year old F stage IV colon cancer, T2DM, CHF , CKD3, JANET on CPAP, Parkinson's Disease, Gout, essential HTN, hypothyroidism, current cigarette smoking status, [facility] (Dr. Shah's[facility] care from 10/24- for COVID pneumonia, UTI, and coagulase negative staph bacteremia. She was being treated with supplemental oxygen therapy, dexamethasone, and Remdesivir for COVID pneumonia, and Rocephin for UTI and bacteremia. 2D echocardiogram was performed and no signs of endocarditis was seen. She was being discharged with clindamycin PO to finish a 2 week course for bacteremia. PT initially recommended SNF placement, but patient refused, so arrangement for home health therapy was instead made. Last night patient claimed that when she woke up from bed and went to bathroom, she was still tired and sleepy and hence fell. She denied any LOC. Denies any chest pain, palpitation, or SOB. She was to weak to get up by herself or call for help so she lying on the ground with feces. She was being found the next morning, and being sent to our ED for re-evaluation. Extensive workup was performed in the ED and no new intracranial pathologies was found. Labs showing serum Cr level of 1.4, and it was 1.3 yesterday at discharge, with rest of the labs no change from yesterday. Patient agreed to be admitted for SNF/rehab placement. Due to recent CoVID infection, she would have to wait until at least 11/04/21. 10/31: Afebrile overnight. On 2L/min oxygen. On clindamycin. Denies SOB, cough, or wheezing. Denies chest pain or palpitation. Denies fever, chills, or sweating. c/o general body weakness. Physical therapy: SNF/rehab placement, pending. 11/01: Patient no longer on oxygen. Still complains of overall weakness and mild general malaise. Asking about using her home lymphedema garment. Also concerned about constipation, uses milk of magnesia as needed at home along with stool softeners. Would like to try to get up and move around more, is going to have her walker brought in. I encouraged her to ambulate within her room. Constitutional Vitals: Vital Signs Temp Pulse Resp BP Pulse Ox 98.6 F 63 15 126/83 96 11/01/21 15:42 11/01/21 15:42 11/01/21 15:42 11/01/21 15:42 11/01/21 15:42 Period Temp Pulse Resp BP Sys/Simmons Pulse Ox Last 24 Hr 97.1 F-98.7 F 57-76 15-20 107-165/53-88 92-97 Intake and Output 11/01/21 11/01/21 11/01/21 05:59 13:59 21:59 Intake Total 600 1224 400 Output Total 201 1 Balance 399 1223 400 Weight 266 lb 1 oz GENERAL: Sitting up in chair at bedside, looks mildly fatigued RESPIRATORY: Breath sounds diminished bilaterally, no accessory muscle use CARDIOVASCULAR: Regular ABDOMEN: Soft, active bowel sounds SKIN: Erythema with raw area on right lateral pannus, dressing in place NEURO: Alert, oriented x3, generally weak Intake & Output: Intake & Output 11/01/21 11/01/21 11/01/21 05:59 13:59 21:59 Intake Total 600 1224 400 Output Total 201 1 Balance 399 1223 400 Weight 266 lb 1 oz Intake: IV 988 Sodium Chloride 0.9% 1,000 ml @ 988 100 mls/hr IV .Q10H [facility] Rx#: [id number] Oral 600 236 400 Output: Void Amount 200 # of times incontinent of urine 1 1 Other: Meal Lunch Percent of Meal Consumed 100% Feeding Ability Independent Urine Appearance Clear Clear Urine Color Bright Yellow Dark Yellow Urine Odor Normal Stool Size Small Stool Color Brown Stool Consistency Soft # Voids 1 1 1 # Bowel Movements 1 OBJ DATA Labs CBC & Chem 7: 10/31/21 05:16 10/31/21 05:16 Labs: Abnormal Lab Results 10/31/21 10/31/21 10/30/21 05:16 05:16 10:34 Hgb 10.6 L MCHC 30.9 L RDW 15.5 H MPV 11.0 H Absolute Neutrophils Anion Gap 6.0 L POC BUN BUN 26 H POC Creatinine Glucose 52 L POC Glucose Calcium 8.1 L AST Alkaline Phosphatase Total Protein 5.4 L Albumin 2.4 L Albumin/Globulin Ratio 0.8 L Urine Appearance Hazy A Urine Protein 30 A Hyaline Casts 4 H Urine Mucus Few A 10/30/21 10/30/21 10:04 10:04 Hgb MCHC RDW 15.1 H MPV 11.1 H Absolute Neutrophils 8.06 H Anion Gap POC BUN 36 H BUN POC Creatinine 1.4 H Glucose POC Glucose 136 H Calcium AST 35 H Alkaline Phosphatase 124 H Total Protein Albumin 3.1 L Albumin/Globulin Ratio Urine Appearance Urine Protein Hyaline Casts Urine Mucus Meds: Medications Acetaminophen (Acetaminophen 325 Mg Tablet) 650 mg PO Q6HP PRN; Protocol PRN Reason: Per Pain Protocol/Fever > 101 Last Admin: 11/01/21 15:39 Dose: 650 mg Documented by: Albuterol/Ipratropium (Ipratropium/Albuterol 3 Ml Ampul.Neb) 3 ml NEB Q4HRT PRN PRN Reason: Wheezing Allopurinol (Allopurinol 300 Mg Tablet) 300 mg PO QDAY [facility] Last Admin: 11/01/21 08:29 Dose: 300 mg Documented by: Aspirin (Aspirin 81 Mg Tab.Chew) 81 mg PO DAILY [facility] Last Admin: 11/01/21 08:29 Dose: 81 mg Documented by: Carbidopa/Levodopa (Carbidopa/Levodopa 25/100 Tablet) 1 tab PO TID [facility] Last Admin: 11/01/21 15:39 Dose: 1 tab Documented by: Clindamycin HCl (Clindamycin 150 Mg Capsule) 600 mg PO TID [facility] Last Admin: 11/01/21 15:39 Dose: 600 mg Documented by: Colchicine (Colchicine 0.6 Mg Capsule) 0.6 mg PO BID [facility] Last Admin: 11/01/21 08:29 Dose: 0.6 mg Documented by: Dextrose (Dextrose 50% 50 Ml Vial) 0 ml IV UD PRN PRN Reason: Hypoglycemia Diagnostic Test (Pha) (Accu-Chek 1 Each Strip) 1 each FS ACHS [facility] Last Admin: 11/01/21 16:01 Dose: 1 each Documented by: Docusate Sodium (Docusate Sodium 100 Mg Capsule) 100 mg PO BID [facility] Last Admin: 11/01/21 08:29 Dose: 100 mg Documented by: Escitalopram Oxalate (Escitalopram 20 Mg Tablet) 20 mg PO QDAY [facility] Last Admin: 11/01/21 08:29 Dose: 20 mg Documented by: Glipizide (Glipizide 5 Mg Tablet) 10 mg PO QAMAC [facility] Last Admin: 11/01/21 07:41 Dose: 10 mg Documented by: Glucose (Dextrose 31 Gm Oral.Susp) 15 gm PO PRN PRN PRN Reason: Hypoglycemia Guaifenesin (Guaifenesin/Dextromethorphan Oral Honey) 10 ml PO Q4HP PRN PRN Reason: Cough Last Admin: 10/30/21 21:24 Dose: 10 ml Documented by: Heparin Sodium (Porcine) (Heparin 5,000 Unit/Ml Vial) 5,000 unit SQ Q12 [facility] Last Admin: 11/01/21 08:29 Dose: 5,000 unit Documented by: Hydralazine HCl (Hydralazine 25 Mg Tablet) 25 mg PO BID [facility] Last Admin: 11/01/21 08:29 Dose: 25 mg Documented by: Insulin Human Lispro (Insulin Lispro 1 Unit/0.01 Ml Unit) 0 unit SQ ACHS [facility]; Protocol Last Admin: 11/01/21 16:02 Dose: Not Given Documented by: Insulin Lispro Protam/Lispro Human (Insulin, 75/25 Npl/Lispro 1 Unit/0.01 Ml Unit) 25 unit SQ BIDAC [facility] Last Admin: 11/01/21 17:06 Dose: Not Given Documented by: Iron Carb/Multivit/[place]/Folic Acid (Multivit,Ther Iron,Ca,Fa & Min 1 Tablet) 1 tab PO DAILY [facility] Last Admin: 11/01/21 08:29 Dose: 1 tab Documented by: Levothyroxine Sodium ([facility]roxine 25 Mcg Tablet) [facility] Last Admin: 11/01/21 07:42 Dose: 37.5 mcg Documented by: Loratadine (Loratadine 10 Mg Tablet) 10 mg PO QDAY [facility] Last Admin: 11/01/21 08:29 Dose: 10 mg Documented by: Magnesium Hydroxide (Magnesium Hydroxide 30 Ml Oral.Susp) 30 ml PO BIDP PRN PRN Reason: Constipation Morphine Sulfate (Morphine 4 Mg/Ml Vial) 4 mg IV Q4HP PRN; Protocol PRN Reason: Per Pain Protocol Nicotine (Nicotine 14 Mg Patch) 14 mg TD QDAY [facility] Last Admin: 11/01/21 08:31 Dose: Not Given Documented by: Omeprazole (Omeprazole 20 Mg Capsule) 20 mg PO QDAY [facility] Last Admin: 11/01/21 08:29 Dose: 20 mg Documented by: Ondansetron HCl (Ondansetron 4 Mg/2 Ml Vial) 4 mg IV Q6HP PRN PRN Reason: Nausea And Vomiting Potassium Chloride (Potassium Chloride 20 Meq Tablet) 20 meq PO BIDCC [facility] Last Admin: 11/01/21 07:41 Dose: 20 meq Documented by: Pramipexole Dihydrochloride (Pramipexole 1 Mg Tablet) 1 mg PO [facility] Last Admin: 10/31/21 21:01 Dose: 1 mg Documented by: Prazosin HCl (Prazosin 1 Mg Capsule) 2 mg PO [facility] Last Admin: 10/31/21 21:02 Dose: 2 mg Documented by: Senna (Sennosides 1 Tablet) 2 tab PO [facility] Last Admin: 10/31/21 21:01 Dose: 2 tab Documented by: Simvastatin (Simvastatin 10 Mg Tablet) 5 mg PO [facility] Last Admin: 10/31/21 21:02 Dose: 5 mg Documented by: Sodium Chloride (0.9 % Sodium Chloride 10 Ml Syringe) 10 ml IV Q8 [facility] Last Admin: 11/01/21 13:14 Dose: Not Given Documented by: Zolpidem Tartrate (Zolpidem 5 Mg Tablet) 5 mg PO HSP PRN PRN Reason: Insomnia A/P Narrative A/P Narrative: 1. 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 Coagulase negative staph bacteremia (Suspected contaminant): 1 of 4 bottles with HAND COPER on 10/24 Repeat blood culture on 10/27, no growth final (02/02) 2D echocardiogram: no signs of endocarditis Clindamycin PO Suspect this was contaminant, will stop antibiotics 11/01 3. Stage IV colon cancer: Outpatient f/u with oncologist 4. h/o CHF, stable: Currently on room air Hold oral diuretics due to OLMAN/CKD 5. Stage 1 acute kidney injury on CKD3: Baseline serum Cr level 1.2, 1.4 at admission, currently at 1.1 Avoid nephrotoxic agents Holding oral diuretics Status post IVF (NS@100cc/hr) 6. T2DM: HgA1c 11.8 On glipizide, Insulin 70/30 25 unit SQ BID at baseline 7. Essential HTN: Currently normotensive on home antihypertensives 8. Hypothyroidism: Continue oral thyroid replacement therapy 9. Parkinson's Disease: Continue Sinemet, therapies 10. 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 JANET: Continue CPAP at night while patient is sleeping 12. Anemia, normocytic normochromic: Following as needed Plan: * Continue with PT and OT * Saline lock and follow renal function * Discontinue clindamycin * Consider resuming diuretics if renal function towards baseline tomorrow * Continue diabetic diet, 70/30 insulin, glipizide and SSI * Continue with home antihypertensives * Patient may use home lymphedema garment * Continue with Sinemet * Continue with levothyroxine * Continue with CPAP * Follow labs intermittently DVT ppx: Heparin Code status: DNI Disposition: inpatient med surg; pending SNF rehab placement Time Spent With Patient Time: Total time spent is greater than 50% in coordination of care (as documented) at patient's floor/unit and/or counseling patient: QUALITY VTE Deep Vein Thrombosis/Pulmonary Embolism Present on Admission: No
[2021-11-01] MEDS: PRAZOSIN 1 MG CAPSULE PO SCH (21:17)
[2021-11-01] MEDS: SENNOSIDES 1 TABLET PO SCH (21:17)
[2021-11-01] MEDS: PRAMIPEXOLE 1 MG TABLET PO SCH (21:17)
[2021-11-01] MEDS: SIMVASTATIN 10 MG TABLET PO SCH (21:18)
[2021-11-01] MEDS: MAGNESIUM HYDROXIDE 30 ML ORAL.SUSP PO PRN (22:50)
[2021-11-02] MEDS: 0.9 % SODIUM CHLORIDE 10 ML SYRINGE IV SCH ×3 (06:02→22:09)
[2021-11-02 06:43] LABS: Basophils # (Auto) 0.04 K/mcL (0.00-0.30); Basophils % (Auto) 0.8 % (0.0-2.0); Eosinophils # (Auto) 0.15 K/mcL (0.00-0.70); Hematocrit 34.1 % (34.1-44.9); Hemoglobin 10.5 g/dL (11.2-15.7); Lymphocytes # (Auto) 1.72 K/mcL (1.50-4.80); Lymphocytes % (Auto) 33.9 % (15.5-49.0); Mean Cell Volume 89.3 fL (80.0-100.0); Mean Corpuscular HGB Conc 30.8 g/dL (31.0-36.0); Mean Platelet Volume 11.2 fL (7.4-10.4); Monocytes # (Auto) 0.44 K/mcL (0.10-0.90); Monocytes % (Auto) 8.7 % (1.0-12.0); Neutrophils % (Auto) 53.6 % (38.0-78.0); Platelet Count 367 K/mcL (140-440); RBC 3.82 M/mcL (3.59-5.38); Red Cell Distribution Width 15.8 % (11.5-14.5); WBC 5.1 K/mcL (4.5-11.0)
[2021-11-02] MEDS: LEVOTHYROXINE 25 MCG TABLET PO SCH (06:57)
[2021-11-02] MEDS: glipiZIDE 5 MG TABLET PO SCH (06:59)
[2021-11-02 07:04] LABS: Albumin 2.8 gm/dL (3.2-5.2); Blood Urea Nitrogen 12 mg/dL (8-23); Calcium 8.4 mg/dL (8.6-10.4); Carbon Dioxide 26 mmol/L (22-30); Chloride 104 mmol/L (96-108); Glomerular Filtration Rate 68; Glucose 175 mg/dL (70-105); Phosphorous 2.4 mg/dL (2.5-4.5)
[2021-11-02] MEDS: INSULIN LISPRO 1 UNIT/0.01 ML UNIT SQ SCH ×4 (07:20→22:05)
[2021-11-02] MEDS: ESCITALOPRAM 20 MG TABLET PO SCH (08:52)
[2021-11-02] MEDS: MAGNESIUM HYDROXIDE 30 ML ORAL.SUSP PO PRN (08:52)
[2021-11-02] MEDS: hydrALAZINE 25 MG TABLET PO SCH ×2 (08:52→22:06)
[2021-11-02] MEDS: COLCHICINE 0.6 MG CAPSULE PO SCH ×2 (08:52→22:07)
[2021-11-02] MEDS: ALLOPURINOL 300 MG TABLET PO SCH (08:53)
[2021-11-02] MEDS: LORATADINE 10 MG TABLET PO SCH (08:53)
[2021-11-02] MEDS: PHOSPHORUS 250 MG TABLET PO SCH ×2 (08:53→22:06)
[2021-11-02] MEDS: ASPIRIN 81 MG TAB.CHEW PO SCH (08:53)
[2021-11-02] MEDS: CARBIDOPA/LEVODOPA 25/100 TABLET PO SCH ×3 (08:53→22:06)
[2021-11-02] MEDS: ACETAMINOPHEN 325 MG TABLET PO PRN (08:53)
[2021-11-02] MEDS: OMEPRAZOLE 20 MG CAPSULE PO SCH (08:53)
[2021-11-02] MEDS: MULTIVIT,THER IRON,CA,FA & MIN 1 TABLET PO SCH (08:53)
[2021-11-02] MEDS: POTASSIUM CHLORIDE 20 MEQ TABLET PO SCH ×2 (08:54→17:24)
[2021-11-02] MEDS: HEPARIN 5,000 UNIT/ML VIAL SQ SCH ×2 (08:59→22:07)
[2021-11-02] MEDS: INSULIN, 75/25 NPL/LISPRO 1 UNIT/0.01 ML UNIT SQ SCH ×2 (08:59→16:06)
[2021-11-02] MEDS: NICOTINE 14 MG PATCH TD SCH (09:07)
[2021-11-02] MEDS: DOCUSATE SODIUM 100 MG CAPSULE PO SCH ×2 (09:07→22:06)
--- NOTE | 2021-11-02 11:31 | Internal Med Progress Note ---
SUBJECTIVE Subjective Patient information: Note initiated : 11/02/21 at 11:21 am Service Date, if different from initiated Date: [] Patient: Patsy Lam a 86 y/o F admitted on 10/30/21 for Fall. Chief Complaint: Follow-up weakness from COVID-19 Interval history: Ms. Cherie Paula is a 86 year old F stage IV colon cancer, T2DM, CHF , CKD3, JANET on CPAP, Parkinson's Disease, Gout, essential HTN, hypothyroidism, current cigarette smoking status, recently admitted to [facility] under my (Dr. Mariscals) care from 10/24- for COVID pneumonia, UTI, and coagulase negative staph bacteremia. She was being treated with supplemental oxygen therapy, dexamethasone, and Remdesivir for COVID pneumonia, and Rocephin for UTI and bacteremia. 2D echocardiogram was performed and no signs of endocarditis was seen. She was being discharged with clindamycin PO to finish a 2 week course for bacteremia. PT initially recommended SNF placement, but patient refused, so arrangement for home health therapy was instead made. Last night patient claimed that when she woke up from bed and went to bathroom, she was still tired and sleepy and hence fell. She denied any LOC. Denies any chest pain, palpitation, or SOB. She was to weak to get up by herself or call for help so she lying on the ground with feces. She was being found the next morning, and being sent to our ED for re-evaluation. Extensive workup was performed in the ED and no new intracranial pathologies was found. Labs showing serum Cr level of 1.4, and it was 1.3 yesterday at discharge, with rest of the labs no change from yesterday. Patient agreed to be admitted for SNF/rehab placement. Due to recent CoVID infection, she would have to wait until at least 11/04/21. 10/31: Afebrile overnight. On 2L/min oxygen. On clindamycin. Denies SOB, cough, or wheezing. Denies chest pain or palpitation. Denies fever, chills, or sweating. c/o general body weakness. Physical therapy: SNF/rehab placement, pending. 11/01: Patient no longer on oxygen. Still complains of overall weakness and mild g eneral malaise. Asking about using her home lymphedema garment. Also concerned about constipation, uses milk of magnesia as needed at home along with stool softeners. Would like to try to get up and move around more, is going to have her walker brought in. I encouraged her to ambulate within her room. 1/2: Using lymphedema garment this morning. Receiving bowel care. Trying to ambulate in her room with her walker. Still generally weak from prior hospitalization and COVID-19. Remains on room air. Constitutional Vitals: Vital Signs Temp Pulse Resp BP Pulse Ox 98.4 F 62 18 161/82 95 11/02/21 07:03 11/02/21 07:03 11/02/21 07:03 11/02/21 07:03 11/02/21 07:03 Period Temp Pulse Resp BP Sys/Simmons Pulse Ox Last 24 Hr 97.1 F-98.6 F 57-73 15-20 102-161/51-83 91-96 Intake and Output 11/01/21 11/02/21 11/02/21 21:59 05:59 13:59 Intake Total 504 184 0044 Output Total 0 Balance 417 367 5599 Weight 270 lb 3 oz Intake & Output: Intake & Output 11/01/21 11/02/21 11/02/21 21:59 05:59 13:59 Intake Total 906 053 4273 Output Total 0 Balance 836 935 9006 Weight 270 lb 3 oz Intake: IV 1000 Sodium Chloride 0.9% 1,000 ml @ 1000 100 mls/hr IV .Q10H MERLENE Rx#: [id number] Oral 400 900 480 Output: # of times incontinent of urine 0 Other: Meal Breakfast Percent of Meal Consumed 100% Feeding Ability Independent Urine Appearance Clear Urine Color Dark Yellow Bright Yellow Urine Odor Normal Stool Size Small Stool Color Brown Stool Consistency Soft # Voids 1 1 1 # Bowel Movements 1 # of times incontinent of 0 Bowels GENERAL: Laying in bed having lymphedema garment placed, no acute distress RESPIRATORY: Respirations unlabored, clear anteriorly. CARDIOVASCULAR: Regular ABDOMEN: Nontender EXTREMITIES: Lymphedema garment in place NEURO: Alert, oriented x3, generally weak OBJ DATA Labs CBC & Chem 7: 11/02/21 05:46 11/02/21 05:46 Labs: Abnormal Lab Results 11/02/21 11/02/21 10/31/21 05:46 05:46 05:16 Hgb 10.5 L MCHC 30.8 L RDW 15.8 H MPV 11.2 H Anion Gap 6.0 L BUN 26 H Glucose 175 H 52 L Calcium 8.4 L 8.1 L Phosphorus 2.4 L Total Protein 5.4 L Albumin 2.8 L 2.4 L Albumin/Globulin Ratio 0.8 L Urine Appearance Urine Protein Hyaline Casts Urine Mucus 10/31/21 10/30/21 05:16 10:34 Hgb 10.6 L MCHC 30.9 L RDW 15.5 H MPV 11.0 H Anion Gap BUN Glucose Calcium Phosphorus Total Protein Albumin Albumin/Globulin Ratio Urine Appearance Hazy A Urine Protein 30 A Hyaline Casts 4 H Urine Mucus Few A Meds: Medications Acetaminophen (Acetaminophen 325 Mg Tablet) 650 mg PO Q6HP PRN; Protocol PRN Reason: Per Pain Protocol/Fever > 101 Last Admin: 11/02/21 08:53 Dose: 650 mg Documented by: Albuterol/Ipratropium (Ipratropium/Albuterol 3 Ml Ampul.Neb) 3 ml NEB Q4HRT PRN PRN Reason: Wheezing Allopurinol (Allopurinol 300 Mg Tablet) 300 mg PO QDAY [facility] Last Admin: 11/02/21 08:53 Dose: 300 mg Documented by: Aspirin (Aspirin 81 Mg Tab.Chew) 81 mg PO DAILY [facility] Last Admin: 11/02/21 08:53 Dose: 81 mg Documented by: Carbidopa/Levodopa (Carbidopa/Levodopa 25/100 Tablet) 1 tab PO TID [facility] Last Admin: 11/02/21 08:53 Dose: 1 tab Documented by: Colchicine (Colchicine 0.6 Mg Capsule) 0.6 mg PO BID [facility] Last Admin: 11/02/21 08:52 Dose: 0.6 mg Documented by: Dextrose (Dextrose 50% 50 Ml Vial) 0 ml IV UD PRN PRN Reason: Hypoglycemia Diagnostic Test (Pha) (Accu-Chek 1 Each Strip) 1 each FS ACHS [facility] Last Admin: 11/02/21 11:09 Dose: 1 each Documented by: Docusate Sodium (Docusate Sodium 100 Mg Capsule) 100 mg PO BID [facility] Last Admin: 11/02/21 09:07 Dose: Not Given Documented by: Escitalopram Oxalate (Escitalopram 20 Mg Tablet) 20 mg PO QDAY [facility] Last Admin: 11/02/21 08:52 Dose: 20 mg Documented by: Glipizide ([facility] Mg Tablet) [facility] Last Admin: 11/02/21 06:59 Dose: 10 mg Documented by: Glucose (Dextrose 31 Gm Oral.Susp) 15 gm PO PRN PRN PRN Reason: Hypoglycemia Guaifenesin (Guaifenesin/Dextromethorphan Oral Honey) 10 ml PO Q4HP PRN PRN Reason: Cough Last Admin: 10/30/21 21:24 Dose: 10 ml Documented by: Heparin Sodium (Porcine) (Heparin 5,000 Unit/Ml Vial) 5,000 unit SQ Q12 [facility] Last Admin: 11/02/21 08:59 Dose: 5,000 unit Documented by: Hydralazine HCl (Hydralazine 25 Mg Tablet) 25 mg PO BID [facility] Last Admin: 11/02/21 08:52 Dose: 25 mg Documented by: Insulin Human Lispro (Insulin Lispro 1 Unit/0.01 Ml Unit) 0 unit SQ ACHS [facility]; Protocol Last Admin: 11/02/21 07:20 Dose: Not Given Documented by: Insulin Lispro Protam/Lispro Human (Insulin, 75/25 Npl/Lispro 1 Unit/0.01 Ml Unit) 25 unit SQ BIDAC [facility] Last Admin: 11/02/21 08:59 Dose: 25 unit Documented by: Iron Carb/Multivit/[place]/Folic Acid (Multivit,Ther Iron,Ca,Fa & Min 1 Tablet) 1 tab PO DAILY [facility] Last Admin: 11/02/21 08:53 Dose: 1 tab Documented by: Levothyroxine Sodium (Levothyroxine 25 Mcg Tablet) 37.5 mcg [facility] Last Admin: 11/02/21 06:57 Dose: 37.5 mcg Documented by: Loratadine (Loratadine 10 Mg Tablet) 10 mg PO QDAY [facility] Last Admin: 11/02/21 08:53 Dose: 10 mg Documented by: Magnesium Hydroxide (Magnesium Hydroxide 30 Ml Oral.Susp) 30 ml PO BIDP PRN PRN Reason: Constipation Last Admin: 11/01/21 22:50 Dose: 30 ml Documented by: Morphine Sulfate (Morphine 4 Mg/Ml Vial) 4 mg IV Q4HP PRN; Protocol PRN Reason: Per Pain Protocol Nicotine (Nicotine 14 Mg Patch) 14 mg TD QDAY [facility] Last Admin: 11/02/21 09:07 Dose: Not Given Documented by: Omeprazole (Omeprazole 20 Mg Capsule) 20 mg PO QDAY [facility] Last Admin: 11/02/21 08:53 Dose: 20 mg Documented by: Ondansetron HCl (Ondansetron 4 Mg/2 Ml Vial) 4 mg IV Q6HP PRN PRN Reason: Nausea And Vomiting Potassium Chloride (Potassium Ch[facility] 20 Meq Tablet) [facility] Last Admin: 11/02/21 08:54 Dose: 20 meq Documented by: Pramipexole Dihydrochloride (Pramipexole 1 Mg Tablet) 1 mg PO [facility] Last Admin: 11/01/21 21:17 Dose: 1 mg Documented by: Prazosin HCl (Prazosin 1 Mg Capsule) 2 mg PO [facility] Last Admin: 11/01/21 21:17 Dose: 2 mg Documented by: Senna (Sennosides 1 Tablet) 2 tab PO [facility] Last Admin: 11/01/21 21:17 Dose: 2 tab Documented by: Simvastatin (Simvastatin 10 Mg Tablet) 5 mg PO [facility] Last Admin: 11/01/21 21:18 Dose: 5 mg Documented by: Sodium Chloride (0.9 % Sodium Chloride 10 Ml Syringe) 10 ml IV Q8 [facility] Last Admin: 11/02/21 06:02 Dose: 10 ml Documented by: Sodium Phosphate (Phosphorus 250 Mg Tablet) 250 mg PO BID [facility] Stop: 11/02/21 21:01 Last Admin: 11/02/21 08:53 Dose: 250 mg Documented by: Zolpidem Tartrate (Zolpidem 5 Mg Tablet) 5 mg PO HSP PRN PRN Reason: Insomnia A/P Assessment and plan (1) Pneumonia due to COVID-19 virus: Status: Acute (2) Fall: Status: Acute (3) Stage 1 acute kidney injury: Status: Acute (4) Stage 3 chronic kidney disease: Status: Chronic Qualifiers: Chronic kidney disease stage 3 subtype: unspecified whether 3a or 3b Qualified Code(s): N18.30 - Chronic kidney disease, stage 3 unspecified (5) Diabetes mellitus with neuropathy: Status: Chronic Qualifiers: Diabetes mellitus type: type 2 Diabetes mellitus alf insulin use: with medical terminologist use Qualified Code(s): E11.40 - Type 2 diabetes mellitus with diabetic neuropathy, unspecified; Z79.4 - longterm (current) use of insulin (6) CHF (congestive heart failure): Status: Chronic Qualifiers: Heart failure type: unspecified Heart failure chronicity: chronic Qualified Code(s): I50.9 - Heart failure, unspecified (7) Parkinson's disease: Status: Acute (8) Coag negative Staphylococcus bacteremia: Status: Acute (9) Adenocarcinoma of cecum: Status: Chronic (10) JANET on CPAP: Status: Acute (11) Hyperlipidemia: Status: Chronic (12) Hypothyroidism: Status: Chronic Qualifiers: Hypothyroidism type: unspecified Qualified Code(s): E03.9 - Hypothyroidism, unspecified (13) Gout: Status: Chronic Qualifiers: Gout site: toe Gout etiology: unspecified cause Chronicity: acute Laterality: right Qualified Code(s): M10.9 - Gout, unspecified (14) Hypertension: Status: Chronic Qualifiers: Hypertension type: essential hypertension Qualified Code(s): I10 - Essential (primary) hypertension (15) Tobacco dependence: Status: Acute Narrative A/P Narrative: Accidental fall: -Likely secondary from weakness from COVID-19, hospitalization, underlying medical illnesses as below -No fractures or joint dislocation -Morphine IV PRN pain protocol -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-->SNF/rehab as early as 11/04/21 due to recent CoVID infection -Physical therapy -Occupational therapy COVID-19 pneumonia -Status post hospitalization and completed therapy -Currently on room air -Remains in special airborne and contact isolation Coagulase negative staph bacteremia (Suspected contaminant): Resolved -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; Nicotine replacement therapy JANET: -Continue CPAP at night while patient is sleeping Anemia, normocytic normochromic: -Following as needed Plan: * Continue with PT and OT * Resume home diuretics in morning * Follow renal function * Continue diabetic diet, 70/30 insulin, glipizide and SSI * Continue with home antihypertensives * Continue home lymphedema garment * Continue with Sinemet * Continue with levothyroxine * Continue with CPAP * Follow labs intermittently DVT ppx: Heparin Code status: DNI Disposition: inpatient med surg; pending SNF rehab placement Time Spent With Patient Time: Total time spent is greater than 50% in coordination of care (as documented) at patient's floor/unit and/or counseling patient: QUALITY VTE Deep Vein Thrombosis/Pulmonary Embolism Present on Admission: No
--- NOTE | 2021-11-02 13:31 | Internal Med Progress Note ---
SUBJECTIVE Subjective Patient information: Note initiated : 11/02/21 at 1:26 pm Service Date, if different from initiated Date: [] Patient: Patsy Lam a 86 y/o F admitted on 10/30/21 for Fall. Chief Complaint: [] Interval history: Ms. Cherie Paula is a 86 year old F stage IV colon cancer, T2DM, CHF , CKD3, JANET on CPAP, Parkinson's Disease, Gout, essential HTN, hypothyroidism, current cigarette smoking status, recently admitted to [facility] under my (Dr. Shah's) care from 10/24- for COVID pneumonia, UTI, and coagulase negative staph bacteremia. She was being treated with supplemental oxygen therapy, dexamethasone, and Remdesivir for COVID pneumonia, and Rocephin for UTI and bacteremia. 2D echocardiogram was performed and no signs of endocarditis was seen. She was being discharged with clindamycin PO to finish a 2 week course for bacteremia. PT initially recommended SNF placement, but patient refused, so arrangement for home health therapy was instead made. Last night patient claimed that when she woke up from bed and went to bathroom, she was still tired and sleepy and hence fell. She denied any LOC. Denies any chest pain, palpitation, or SOB. She was to weak to get up by herself or call for help so she lying on the ground with feces. She was being found the next morning, and being sent to our ED for re-evaluation. Extensive workup was performed in the ED and no new intracranial pathologies was found. Labs showing serum Cr level of 1.4, and it was 1.3 yesterday at discharge, with rest of the labs no change from yesterday. Patient agreed to be admitted for SNF/rehab placement. Due to recent CoVID infection, she would have to wait until at least 11/04/21. 10/31: Afebrile overnight. On 2L/min oxygen. On clindamycin. Denies SOB, cough, or wheezing. Denies chest pain or palpitation. Denies fever, chills, or sweating. c/o general body weakness. Physical therapy: SNF/rehab placement, pending. 11/01: Patient no longer on oxygen. Still complains of overall weakness and mild general malaise. Asking about using her home lymphedema garment. Also concerned about constipation, uses milk of magnesia as needed at home along with stool softeners. Would like to try to get up and move around more, is going to have her walker brought in. I encouraged her to ambulate within her room. 2: Using lymphedema garment this morning. Receiving bowel care. Trying to ambulate in her room with her walker. Still generally weak from prior hospitalization and COVID-19. Remains on room air. Constitutional Vitals: Vital Signs Temp Pulse Resp BP Pulse Ox 97.9 F 62 20 151/67 94 11/02/21 11:56 11/02/21 07:03 11/02/21 11:56 11/02/21 11:56 11/02/21 11:56 Period Temp Pulse Resp BP Sys/Simmons Pulse Ox Last 24 Hr 97.6 F-98.6 F 60-73 15-20 102-161/51-83 91-96 Intake and Output 11/01/21 11/02/21 11/02/21 21:59 05:59 13:59 Intake Total 348 849 8959 Output Total 0 Balance 522 179 7757 Weight 122.555 kg Intake & Output: Intake & Output 11/01/21 11/02/21 11/02/21 21:59 05:59 13:59 Intake Total 448 281 4436 Output Total 0 Balance 611 946 2248 Weight 122.555 kg Intake: IV 1000 Sodium Chloride 0.9% 1,000 ml @ 1000 100 mls/hr IV .Q10H [facility] Rx#: [id number] Oral 400 900 480 Output: # of times incontinent of urine 0 Other: Meal Breakfast Percent of Meal Consumed 100% Feeding Ability Independent Urine Appearance Clear Urine Color Dark Yellow Bright Yellow Urine Odor Normal Stool Size Small Stool Color Brown Stool Consistency Soft # Voids 1 1 1 # Bowel Movements 1 # of times incontinent of 0 Bowels Exam: General: Alert, Awake, No acute Distress, obese Eyes/N/T: EOMI, Head/Neck: neck supple, CV: RRR, No murmurs, Pulm: Clear b/l, no wheezing/rhonchi/rales Abd: soft, nontender, +BS x4 Ext: no clubbing/cyanosis/edema Neuro: Alert, no focal deficits, moves all extremities, Skin: warm/dry OBJ DATA Labs CBC & Chem 7: 11/02/21 05:46 11/02/21 05:46 Labs: Abnormal Lab Results 11/02/21 11/02/21 10/31/21 05:46 05:46 05:16 Hgb 10.5 L MCHC 30.8 L RDW 15.8 H MPV 11.2 H Anion Gap 6.0 L BUN 26 H Glucose 175 H 52 L Calcium 8.4 L 8.1 L Phosphorus 2.4 L Total Protein 5.4 L Albumin 2.8 L 2.4 L Albumin/Globulin Ratio 0.8 L 10/31/21 05:16 Hgb 10.6 L MCHC 30.9 L RDW 15.5 H MPV 11.0 H Anion Gap BUN Glucose Calcium Phosphorus Total Protein Albumin Albumin/Globulin Ratio Meds: Medications Acetaminophen (Acetaminophen 325 Mg Tablet) 650 mg PO Q6HP PRN; Protocol PRN Reason: Per Pain Protocol/Fever > 101 Last Admin: 11/02/21 08:53 Dose: 650 mg Documented by: Albuterol/Ipratropium (Ipratropium/Albuterol 3 Ml Ampul.Neb) 3 ml NEB Q4HRT PRN PRN Reason: Wheezing Allopurinol (Allopurinol 300 Mg Tablet) 300 mg PO QDAY [facility] Last Admin: 11/02/21 08:53 Dose: 300 mg Documented by: Aspirin (Aspirin 81 Mg Tab.Chew) 81 mg PO DAILY [facility] Last Admin: 11/02/21 08:53 Dose: 81 mg Documented by: Carbidopa/Levodopa (Carbidopa/Levodopa 25/100 Tablet) 1 tab PO TID [facility] Last Admin: 11/02/21 08:53 Dose: 1 tab Documented by: Colchicine (Colchicine 0.6 Mg Capsule) 0.6 mg PO BID [facility] Last Admin: 11/02/21 08:52 Dose: 0.6 mg Documented by: Dextrose (Dextrose 50% 50 Ml Vial) 0 ml IV UD PRN PRN Reason: Hypoglycemia Diagnostic Test (Pha) (Accu-Chek 1 Each Strip) 1 each FS ACHS [facility] Last Admin: 11/02/21 11:09 Dose: 1 each Documented by: Docusate Sodium (Docusate Sodium 100 Mg Capsule) 100 mg PO BID [facility] Last Admin: 11/02/21 09:07 Dose: Not Given Documented by: Escitalopram Oxalate (Escitalopram 20 Mg Tablet) 20 mg PO QDAY [facility] Last Admin: 11/02/21 08:52 Dose: 20 mg Documented by: Glipizide (Glipizide 5 Mg Tablet) 10 mg PO QAMAC [facility] Last Admin: 11/02/21 06:59 Dose: 10 mg Documented by: Glucose (Dextrose 31 Gm Oral.Susp) 15 gm PO PRN PRN PRN Reason: Hypoglycemia Guaifenesin (Guaifenesin/Dextromethorphan Oral Honey) 10 ml PO Q4HP PRN PRN Reason: Cough Last Admin: 10/30/21 21:24 Dose: 10 ml Documented by: Heparin Sodium (Porcine) (Heparin 5,000 Unit/Ml Vial) 5,000 unit SQ Q12 [facility] Last Admin: 11/02/21 08:59 Dose: 5,000 unit Documented by: Heparin Sodium (Porcine) (Heparin Flush 10 Units/Ml 5 Ml Syringe) 2 ml IV Q12 [facility] Last Admin: 11/02/21 12:10 Dose: 2 ml Documented by: Hydralazine HCl (Hydralazine 25 Mg Tablet) 25 mg PO BID [facility] Last Admin: 11/02/21 08:52 Dose: 25 mg Documented by: Insulin Human Lispro (Insulin Lispro 1 Unit/0.01 Ml Unit) 0 unit SQ ACHS [facility]; Protocol Last Admin: 11/02/21 12:09 Dose: 1 units Documented by: Insulin Lispro Protam/Lispro Human (Insulin, 75/25 Npl/Lispro 1 Unit/0.01 Ml Unit) 25 unit SQ BIDAC [facility] Last Admin: 11/02/21 08:59 Dose: 25 unit Documented by: Iron Carb/Multivit/[place]/Folic Acid (Multivit,Ther Iron,Ca,Fa & Min 1 Tablet) 1 tab PO DAILY [facility] Last Admin: 11/02/21 08:53 Dose: 1 tab Documented by: Levothyroxine Sodium (Levothyroxine 25 Mcg Tablet) [facility] Last Admin: 11/02/21 06:57 Dose: 37.5 mcg Documented by: Loratadine (Loratadine 10 Mg Tablet) 10 mg PO QDAY [facility] Last Admin: 11/02/21 08:53 Dose: 10 mg Documented by: Magnesium Hydroxide (Magnesium Hydroxide 30 Ml Oral.Susp) 30 ml PO BIDP PRN PRN Reason: Constipation Last Admin: 11/01/21 22:50 Dose: 30 ml Documented by: Morphine Sulfate (Morphine 4 Mg/Ml Vial) 4 mg IV Q4HP PRN; Protocol PRN Reason: Per Pain Protocol Nicotine (Nicotine 14 Mg Patch) 14 mg TD QDAY [facility] Last Admin: 11/02/21 09:07 Dose: Not Given Documented by: Omeprazole (Omeprazole 20 Mg Capsule) 20 mg PO QDAY [facility] Last Admin: 11/02/21 08:53 Dose: 20 mg Documented by: Ondansetron HCl (Ondansetron 4 Mg/2 Ml Vial) 4 mg IV Q6HP PRN PRN Reason: Nausea And Vomiting Potassium Chloride (Potassium Chloride 20 Meq Tablet) [facility] Last Admin: 11/02/21 08:54 Dose: 20 meq Documented by: Pramipexole Dihydrochloride (Pramipexole 1 Mg Tablet) 1 mg PO [facility] Last Admin: 11/01/21 21:17 Dose: 1 mg Documented by: Prazosin HCl (Prazosin 1 Mg Capsule) 2 mg PO [facility] Last Admin: 11/01/21 21:17 Dose: 2 mg Documented by: Senna (Sennosides 1 Tablet) 2 tab PO [facility] Last Admin: 11/01/21 21:17 Dose: 2 tab Documented by: Simvastatin (Simvastatin 10 Mg Tablet) 5 mg PO [facility] Last Admin: 11/01/21 21:18 Dose: 5 mg Documented by: Sodium Chloride (0.9 % Sodium Chloride 10 Ml Syringe) 10 ml IV Q8 [facility] Last Admin: 11/02/21 12:11 Dose: 10 ml Documented by: Sodium Phosphate (Phosphorus 250 Mg Tablet) 250 mg PO BID [facility] Stop: 11/02/21 21:01 Last Admin: 11/02/21 08:53 Dose: 250 mg Documented by: Torsemide (Torsemide 10 Mg Tablet) 100 mg PO DAILY [facility] Zolpidem Tartrate (Zolpidem 5 Mg Tablet) 5 mg PO HSP PRN PRN Reason: Insomnia A/P Narrative A/P Narrative: A: *Accidental fall: Likely 2/2 weakness from COVID-19/hospitalization/underlying medical illnesses as below -No fractures or joint dislocation *COVID-19 pneumonia: s/p hospitalization and completed therapy -Currently on room air, Remains in special airborne and contact isolation *Coagulase negative staph bacteremia (Suspected contaminant): Resolved, 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/24 *Stage IV colon cancer: Outpatient f/u with oncologist *Chronic CHF, stable: Currently on room air *OLMAN on CKD III: *T2DM: A1c 11.8 *HTN: *Hypothyroidism: *Parkinson's Disease: *Current cigarette smoker: 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; Nicotine replacement therapy *JANET: Continue CPAP at night while patient is sleeping *Anemia, normocytic normochromic: *Obesity: Plan: -Continue with PT and OT -Resume home diuretics in morning -Follow renal function -Continue diabetic diet, 70/30 insulin, glipizide and SSI -Continue with home antihypertensives -Continue home lymphedema garment -Continue with Sinemet -Continue with CPAP -support manager for discharge planning-->SNF/rehab as early as 11/04/21 due to recent CoVID infection -Physical therapy /Occupational therapy -ppx: Heparin Code status: DNI Time Spent With Patient Time: Total time spent is greater than 50% in coordination of care (as documented) at patient's floor/unit and/or counseling patient: QUALITY VTE Deep Vein Thrombosis/Pulmonary Embolism Present on Admission: No
[2021-11-02] MEDS: PRAMIPEXOLE 1 MG TABLET PO SCH (22:06)
[2021-11-02] MEDS: SENNOSIDES 1 TABLET PO SCH (22:06)
[2021-11-02] MEDS: PRAZOSIN 1 MG CAPSULE PO SCH (22:06)
[2021-11-02] MEDS: SIMVASTATIN 10 MG TABLET PO SCH (22:08)
[2021-11-03] MEDS: ACETAMINOPHEN 325 MG TABLET PO PRN ×2 (04:22→09:52)
[2021-11-03] MEDS: 0.9 % SODIUM CHLORIDE 10 ML SYRINGE IV SCH ×3 (04:23→21:57)
--- NOTE | 2021-11-03 07:19 | EKG ---
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 Measurements Intervals [place] Rate: 69 P: 61 WI: 225 QRS: 101 QRSD: 172 T: 21 QT: 474 QTc: 508 Interpretive Statements Sinus rhythm FIRST DEGREE AV BLOCK RBBB and LPFB Electronically Signed On 11-03-2021 7:19:38 PST by Alec Prieto M.D. /store/[email or web address]/[id number]
[2021-11-03 07:21] LABS: Albumin 2.4 gm/dL (3.2-5.2); Blood Urea Nitrogen 11 mg/dL (8-23); Calcium 8.4 mg/dL (8.6-10.4); Carbon Dioxide 24 mmol/L (22-30); Chloride 106 mmol/L (96-108); Glomerular Filtration Rate 68; Glucose 90 mg/dL (70-105); Phosphorous 3.2 mg/dL (2.5-4.5)
[2021-11-03] MEDS: INSULIN LISPRO 1 UNIT/0.01 ML UNIT SQ SCH ×4 (07:50→21:59)
--- NOTE | 2021-11-03 07:59 | Internal Med Progress Note ---
SUBJECTIVE Subjective Patient information: Note initiated : 11/03/21 at 7:57 am Service Date, if different from initiated Date: [] Patient: Patsy Lam a 86 y/o F admitted on 10/30/21 for Fall. Chief Complaint: [] Interval history: Ms. Cherie Paula is a 86 year old F stage IV colon cancer, T2DM, CHF , CKD3, JANET on CPAP, Parkinson's Disease, Gout, essential HTN, hypothyroidism, current cigarette smoking status, recently admitted to [facility] under my (Dr. Shah's) care from 10/24- for COVID pneumonia, UTI, and coagulase negative staph bacteremia. She was being treated with supplemental oxygen therapy, dexamethasone, and Remdesivir for COVID pneumonia, and Rocephin for UTI and bacteremia. 2D echocardiogram was performed and no signs of endocarditis was seen. She was being discharged with clindamycin PO to finish a 2 week course for bacteremia. PT initially recommended SNF placement, but patient refused, so arrangement for home health therapy was instead made. Last night patient claimed that when she woke up from bed and went to bathroom, she was still tired and sleepy and hence fell. She denied any LOC. Denies any chest pain, palpitation, or SOB. She was to weak to get up by herself or call for help so she lying on the ground with feces. She was being found the next morning, and being sent to our ED for re-evaluation. Extensive workup was performed in the ED and no new intracranial pathologies was found. Labs showing serum Cr level of 1.4, and it was 1.3 yesterday at discharge, with rest of the labs no change from yesterday. Patient agreed to be admitted for SNF/rehab placement. Due to recent CoVID infection, she would have to wait until at least 11/04/21. 10/31: Afebrile overnight. On 2L/min oxygen. On clindamycin. Denies SOB, cough, or wheezing. Denies chest pain or palpitation. Denies fever, chills, or sweating. c/o general body weakness. Physical therapy: SNF/rehab placement, pending. 11/01: Patient no longer on oxygen. Still complains of overall weakness and mild general malaise. Asking about using her home lymphedema garment. Also concerned about constipation, uses milk of magnesia as needed at home along with stool softeners. Would like to try to get up and move around more, is going to have her walker brought in. I encouraged her to ambulate within her room. 11/02: Using lymphedema garment this morning. Receiving bowel care. Trying to ambulate in her room with her walker. Still generally weak from prior hospitalization and COVID-19. Remains on room air. 11/03 Patient complains of abdominal pain from her chronic pain associated with her metastatic lung cancer. Review of Systems: denies headache/fever/chills/nausea/vomiting/chest pain/cough/dyspnea/. Otherwise see above. Constitutional Vitals: Vital Signs Temp Pulse Resp BP Pulse Ox 97.7 F 62 16 148/65 93 11/03/21 06:57 11/03/21 06:57 11/03/21 06:57 11/03/21 06:57 11/03/21 06:57 Period Temp Pulse Resp BP Sys/Simmons Pulse Ox Last 24 Hr 97.2 F-98.9 F 59-80 16-20 125-169/57-74 90-99 Intake and Output 11/02/21 11/03/21 11/03/21 21:59 05:59 13:59 Intake Total 250 850 Balance 250 850 Weight 122.498 kg Intake & Output: Intake & Output 11/02/21 11/03/21 11/03/21 21:59 05:59 13:59 Intake Total 250 850 Balance 250 850 Weight 122.498 kg Intake: Oral 250 850 Other: Meal Lunch Percent of Meal Consumed 100% Feeding Ability Independent Urine Appearance Clear Urine Color Bright Yellow Stool Size Small Stool Color Brown Stool Consistency Formed # Voids 1 1 # Bowel Movements 1 1 Exam: General: Alert, Awake, No acute Distress, obese Eyes/N/T: EOMI, Head/Neck: neck supple, CV: RRR, No murmurs, Pulm: Clear b/l, no wheezing/rhonchi/rales Abd: soft, nontender, +BS x4 Ext: no clubbing/cyanosis, Lymphedema Neuro: Alert, no focal deficits, moves all extremities, Skin: warm/dry OBJ DATA Labs CBC & Chem 7: 11/02/21 05:46 11/03/21 05:20 Labs: Abnormal Lab Results 11/03/21 11/02/21 11/02/21 05:20 05:46 05:46 Hgb 10.5 L MCHC 30.8 L RDW 15.8 H MPV 11.2 H Glucose 175 H Calcium 8.4 L 8.4 L Phosphorus 2.4 L Albumin 2.4 L 2.8 L Meds: Medications Acetaminophen (Acetaminophen 325 Mg Tablet) 650 mg PO Q6HP PRN; Protocol PRN Reason: Per Pain Protocol/Fever > 101 Last Admin: 11/03/21 04:22 Dose: 650 mg Documented by: Albuterol/Ipratropium (Ipratropium/Albuterol 3 Ml Ampul.Neb) 3 ml NEB Q4HRT PRN PRN Reason: Wheezing Allopurinol (Allopurinol 300 Mg Tablet) 300 mg PO QDAY [facility] Last Admin: 11/02/21 08:53 Dose: 300 mg Documented by: Aspirin (Aspirin 81 Mg Tab.Chew) 81 mg PO DAILY [facility] Last Admin: 11/02/21 08:53 Dose: 81 mg Documented by: Carbidopa/Levodopa (Carbidopa/Levodopa 25/100 Tablet) 1 tab PO TID [facility] Last Admin: 11/02/21 22:06 Dose: 1 tab Documented by: Colchicine (Colchicine 0.6 Mg Capsule) 0.6 mg PO BID [facility] Last Admin: 11/02/21 22:07 Dose: 0.6 mg Documented by: Dextrose (Dextrose 50% 50 Ml Vial) 0 ml IV UD PRN PRN Reason: Hypoglycemia Diagnostic Test (Pha) (Accu-Chek 1 Each Strip) 1 each FS ACHS [facility] Last Admin: 11/03/21 06:56 Dose: 1 each Documented by: Docusate Sodium (Docusate Sodium 100 Mg Capsule) 100 mg PO BID [facility] Last Admin: 11/02/21 22:06 Dose: 100 mg Documented by: Escitalopram Oxalate (Escitalopram 20 Mg Tablet) 20 mg PO QDAY [facility] Last Admin: 11/02/21 08:52 Dose: 20 mg Documented by: Glipizide (Glipizide 5 Mg Tablet) 10 mg PO QAMAC [facility] Last Admin: 11/02/21 06:59 Dose: 10 mg Documented by: Glucose (Dextrose 31 Gm Oral.Susp) 15 gm PO PRN PRN PRN Reason: Hypoglycemia Guaifenesin (Guaifenesin/Dextromethorphan Oral Honey) 10 ml PO Q4HP PRN PRN Reason: Cough Last Admin: 10/30/21 21:24 Dose: 10 ml Documented by: Heparin Sodium (Porcine) (Heparin 5,000 Unit/Ml Vial) 5,000 unit SQ Q12 [facility] Last Admin: 11/02/21 22:07 Dose: 5,000 unit Documented by: Heparin Sodium (Porcine) (Heparin Flush 10 Units/Ml 5 Ml Syringe) 2 ml IV Q12 [facility] Last Admin: 11/02/21 22:08 Dose: 2 ml Documented by: Hydralazine HCl (Hydralazine 25 Mg Tablet) 25 mg PO BID [facility] Last Admin: 11/02/21 22:06 Dose: 25 mg Documented by: Insulin Human Lispro (Insulin Lispro 1 Unit/0.01 Ml Unit) 0 unit SQ ACHS [facility]; Protocol Last Admin: 11/03/21 07:50 Dose: Not Given Documented by: Insulin Lispro Protam/Lispro Human (Insulin, 75/25 Npl/Lispro 1 Unit/0.01 Ml Unit) 25 unit SQ BIDAC [facility] Last Admin: 11/02/21 16:06 Dose: 25 unit Documented by: Iron Carb/Multivit/Pantograph Engraver/Folic Acid (Multivit,Ther Iron,Ca,Fa & Min 1 Tablet) 1 tab PO DAILY [facility] Last Admin: 11/02/21 08:53 Dose: 1 tab Documented by: Levothyroxine Sodium (Levothyroxine 25 Mcg Tablet) 37.5 mcg PO QAMAC [facility] Last Admin: 11/02/21 06:57 Dose: 37.5 mcg Documented by: Loratadine (Loratadine 10 Mg Tablet) 10 mg PO QDAY [facility] Last Admin: 11/02/21 08:53 Dose: 10 mg Documented by: Magnesium Hydroxide (Magnesium Hydroxide 30 Ml Oral.Susp) 30 ml PO BIDP PRN PRN Reason: Constipation Last Admin: 11/01/21 22:50 Dose: 30 ml Documented by: Morphine Sulfate (Morphine 4 Mg/Ml Vial) 4 mg IV Q4HP PRN; Protocol PRN Reason: Per Pain Protocol Nicotine (Nicotine 14 Mg Patch) 14 mg TD QDAY [facility] Last Admin: 11/02/21 09:07 Dose: Not Given Documented by: Omeprazole (Omeprazole 20 Mg Capsule) 20 mg PO QDAY [facility] Last Admin: 11/02/21 08:53 Dose: 20 mg Documented by: Ondansetron HCl (Ondansetron 4 Mg/2 Ml Vial) 4 mg IV Q6HP PRN PRN Reason: Nausea And Vomiting Potassium Chloride (Potassium Chloride 20 Meq Tablet) 20 meq PO BIDCC [facility] Last Admin: 11/02/21 17:24 Dose: 20 meq Documented by: Pramipexole Dihydrochloride (Pramipexole 1 Mg Tablet) 1 mg PO [facility] Last Admin: 11/02/21 22:06 Dose: 1 mg Documented by: Prazosin HCl (Prazosin 1 Mg Capsule) 2 mg PO [facility] Last Admin: 11/02/21 22:06 Dose: 2 mg Documented by: Senna (Sennosides 1 Tablet) 2 tab PO [facility] Last Admin: 11/02/21 22:06 Dose: 2 tab Documented by: Simvastatin (Simvastatin 10 Mg Tablet) 5 mg PO [facility] Last Admin: 11/02/21 22:08 Dose: 5 mg Documented by: Sodium Chloride (0.9 % Sodium Chloride 10 Ml Syringe) 10 ml IV Q8 [facility] Last Admin: 11/03/21 04:23 Dose: Not Given Documented by: Torsemide (Torsemide 10 Mg Tablet) 100 mg PO DAILY [facility] Zolpidem Tartrate (Zolpidem 5 Mg Tablet) 5 mg PO HSP PRN PRN Reason: Insomnia A/P Narrative A/P Narrative: A: *Accidental fall: Likely 2/2 weakness from COVID-19/hospitalization/underlying medical illnesses as below -No fractures or joint dislocation *COVID-19 pneumonia: s/p hospitalization and completed therapy -Currently on room air, Remains in special airborne and contact isolation *Coagulase negative staph bacteremia (likely contaminant): Resolved, 1 of 4 bottles with [employer] WORKING [employer]PER[employer] on 10/24 *Stage IV colon cancer: Outpatient f/u with oncologist *Chronic CHF, stable: Currently on room air *OLMAN on CKD III: *T2DM: A1c 11.8 *HTN: *Hypothyroidism: *Parkinson's Disease: *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; Nicotine replacement therapy *JANET: Continue CPAP at night while patient is sleeping *Anemia, normocytic normochromic: *Obesity: Plan: -Continue with PT and OT -Resume home diuretics in morning -Follow renal function -Continue diabetic diet, 70/30 insulin, glipizide and SSI -Continue with home antihypertensives -Continue home lymphedema garment -Continue with Sinemet -Continue with CPAP -marketing planning manager for discharge planning-->SNF/rehab as early as 11/04/21 due to recent CoVID infection -Physical therapy /Occupational therapy -ppx: Heparin Code status: DNI Time Spent With Patient Time: Total time spent is greater than 50% in coordination of care (as documented) at patient's floor/unit and/or counseling patient: QUALITY VTE Deep Vein Thrombosis/Pulmonary Embolism Present on Admission: No
[2021-11-03] MEDS: glipiZIDE 5 MG TABLET PO SCH (08:27)
[2021-11-03] MEDS: LEVOTHYROXINE 25 MCG TABLET PO SCH (08:28)
[2021-11-03] MEDS: INSULIN, 75/25 NPL/LISPRO 1 UNIT/0.01 ML UNIT SQ SCH ×2 (08:30→16:55)
[2021-11-03] MEDS: hydrALAZINE 25 MG TABLET PO SCH ×2 (09:52→21:53)
[2021-11-03] MEDS: ALLOPURINOL 300 MG TABLET PO SCH (09:53)
[2021-11-03] MEDS: COLCHICINE 0.6 MG CAPSULE PO SCH ×2 (09:53→21:53)
[2021-11-03] MEDS: CARBIDOPA/LEVODOPA 25/100 TABLET PO SCH ×3 (09:53→21:53)
[2021-11-03] MEDS: ESCITALOPRAM 20 MG TABLET PO SCH (09:53)
[2021-11-03] MEDS: ASPIRIN 81 MG TAB.CHEW PO SCH (09:53)
[2021-11-03] MEDS: TORSEMIDE 10 MG TABLET PO SCH (09:54)
[2021-11-03] MEDS: LORATADINE 10 MG TABLET PO SCH (09:54)
[2021-11-03] MEDS: OMEPRAZOLE 20 MG CAPSULE PO SCH (09:54)
[2021-11-03] MEDS: HEPARIN 5,000 UNIT/ML VIAL SQ SCH ×2 (09:55→21:53)
[2021-11-03] MEDS: POTASSIUM CHLORIDE 20 MEQ TABLET PO SCH ×2 (09:55→16:57)
[2021-11-03] MEDS: MULTIVIT,THER IRON,CA,FA & MIN 1 TABLET PO SCH (09:55)
[2021-11-03] MEDS: DOCUSATE SODIUM 100 MG CAPSULE PO SCH ×2 (10:00→21:54)
[2021-11-03] MEDS: NICOTINE 14 MG PATCH TD SCH (10:01)
--- NOTE | 2021-11-03 10:29 | Discharge Summary ---
Discharge Provider Provider Patient information: Note initiated : 11/03/21 at 10:28 am Service Date, if different from initiated Date: [] Patient: Patsy Lam 86 y/o F admitted on 10/30/21 for Fall. Chief Complaint: [] Date of admission: 10/30/21 14:30 Discharge date: 11/04/21 Primary care physician: Ryan Samson MD Consults: 10/30/21 Consult to Physician [CONS] Stat Comment: Consulting Provider: Andrew Shah Reason For Exam: Physician to Consult Discharge Meds Discharge Medications Home Medications diabetic shoes #1 ea 03/19/21 [Rx Confirmed 10/30/21 Last Taken Unknown] Foam seat cushion #1 ea 05/06/21 [Rx Confirmed 10/30/21 Last Taken Unknown] escitalopram oxalate 20 mg tablet 20 mg PO QDAY 90 Days #90 tab 05/16/21 [Rx Confirmed 10/30/21 Last Taken 10/24/21 09:00] allopurinol 300 mg tablet 300 mg PO QDAY #90 tab 05/28/21 [Rx Confirmed 10/30/21 Last Taken 10/24/21 09:00] multivitamin 1 tab PO QDAY #90 tab 06/10/21 [Rx Confirmed 10/30/21 Last Taken 10/24/21 09:00] hydralazine 25 mg tablet 25 mg PO BID tab 07/30/21 [History Confirmed 10/30/21 Last Taken 10/24/21 09:00] glipizide 10 mg tablet 10 mg PO QDAY #90 tab 08/12/21 [Rx Confirmed 10/30/21 Last Taken 10/24/21 09:00] torsemide 20 mg tablet 100 mg PO QDAY tab 08/19/21 [History Confirmed 10/30/21 Last Taken 10/24/21 09:00] loratadine 10 mg tablet (Allergy Relief (loratadine)) 10 mg PO QDAY #90 tab 08/22/21 [Rx Confirmed 10/30/21 Last Taken 10/24/21 09:00] omeprazole 20 mg capsule,delayed release 20 mg PO QDAY #90 cap 08/26/21 [Rx Confirmed 10/30/21 Last Taken 10/24/21 09:00] potassium chloride 20 mEq tablet,extended release 20 meq PO BID #180 tab 08/26/21 [Rx Confirmed 10/30/21 Last Taken 10/24/21 09:00] pramipexole 1 mg tablet See Rx Instructions .ROUTE .COMPLEX #90 tab 09/08/21 [Rx Confirmed 10/30/21 Last Taken 10/23/21 21:00] prazosin 2 mg capsule 2 mg PO QHS 90 Days #30 cap 10/06/21 [Rx Confirmed 10/30/21 Last Taken 10/23/21 21:00] blood sugar diagnostic (Blood Glucose Test) #100 ea 10/08/21 [Rx Confirmed 10/03 Last Taken Unknown] carbidopa 25 mg-levodopa 100 mg tablet (Sinemet) 1 tab PO TID #90 tab 10/14/21 [Rx Confirmed 10/30/21 Last Taken 10/24/21 09:00] aspirin 81 mg tablet 81 mg PO DAILY 10/24/21 [History Confirmed 10/30/21 Last Taken 10/24/21 09:00] insulin human U-100 NPH-regulr 70-30 mix 100 unit/mL subcutaneous susp (Novolin 70/30 U-100 Insulin) 25 unit SUBCUT BIDAC 10/24/21 [History Confirmed 11/03/21 Last Taken 10/24/21 09:00] clindamycin HCl 300 mg capsule 600 mg PO TID #30 cap 10/29/21 [Rx Confirmed 10/30/21 Last Taken Unknown] dextromethorphan-guaifenesin 10 mg-100 mg/5 mL oral liquid (Robafen DM Cough) 10 ml PO Q4HP PRN #500 ml 10/29/21 [Rx Confirmed 10/30/21 Last Taken Unknown] colchicine 0.6 mg tablet 0.6 mg PO BID 10/30/21 [History Confirmed 10/30/21 Last Taken Unknown] levothyroxine 13 mcg capsule 37.5 mcg PO QDAY 10/30/21 [History Confirmed 10/30/21 Last Taken Unknown] nicotine 14 mg/24 hr daily transdermal patch 1 patch TRANSDERMAL QDAY 10/30/21 [History Confirmed 10/30/21 Last Taken Unknown] simvastatin 5 mg tablet 5 mg PO BID 10/30/21 [History Confirmed 10/30/21 Last Taken Unknown] COURSE Hospital Course Hospital course: Interval history: Ms. Cherie Paula is a 86 year old F stage IV colon cancer, T2DM, CHF , CKD3, JANET on CPAP, Parkinson's Disease, Gout, essential HTN, hypothyroidism, current cigarette smoking status, [facility] under my (Dr. Mariscals) care from 10/24- for COVID pneumonia, UTI, and coagulase negative staph bacteremia. She was being treated with supplemental oxygen therapy, dexamethasone, and Remdesivir for COVID pneumonia, and Rocephin for UTI and bacteremia. 2D echocardiogram was performed and no signs of endocarditis was seen. She was being discharged with clindamycin PO to finish a 2 week course for bacteremia. PT initially recommended SNF placement, but patient refused, so arrangement for home health therapy was instead made. Last night patient claimed that when she woke up from bed and went to bathroom, she was still tired and sleepy and hence fell. She denied any LOC. Denies any chest pain, palpitation, or SOB. She was to weak to get up by herself or call for help so she lying on the ground with feces. She was being found the next morning, and being sent to our ED for re-evaluation. Extensive workup was performed in the ED and no new intracranial pathologies was found. Labs showing serum Cr level of 1.4, and it was 1.3 yesterday at discharge, with rest of the labs no change from yesterday. Patient agreed to be admitted for SNF/rehab placement. Due to recent CoVID infection, she would have to wait until at least 11/04/21. 10/31: Afebrile overnight. On 2L/min oxygen. On clindamycin. Denies SOB, cough, or wheezing. Denies chest pain or palpitation. Denies fever, chills, or sweating. c/o general body weakness. Physical therapy: SNF/rehab placement, pending. 11/01: Patient no longer on oxygen. Still complains of overall weakness and mild general malaise. Asking about using her home lymphedema garment. Also concerned about constipation, uses milk of magnesia as needed at home along with stool softeners. Would like to try to get up and move around more, is going to have her walker brought in. I encouraged her to ambulate within her room. 11/02: Using lymphedema garment this morning. Receiving bowel care. Trying to ambulate in her room with her walker. Still generally weak from prior hospitalization and COVID-19. Remains on room air. 11/03 Patient complains of abdominal pain from her chronic pain associated with her metastatic lung cancer. 11/04 No new complaints or events overnight. Abdominal pain better today. Awaiting placement. Coordinated. 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; Nicotine replacement therapy *JANET: Continue CPAP at night while patient is sleeping *Anemia, normocytic normochromic: *Obesity: Discharge diagnosis: Weakness fall Secondary discharge diagnosis: Recent hospitalization for Covid pneumonia stage IV colon cancer chronic CHF chronic kidney disease diabetes hypertension hypothyroidism Parkinson's tobacco abuse obstructive sleep apnea anemia obesity Time Spent with Patient Time attestation: Total time spent providing and/or coordinating discharge services: Time spent: Greater than 30 minutes EXAM Constitutional Vitals: Temp Pulse Resp BP Pulse Ox 97.7 F 62 16 148/65 93 11/03/21 06:57 11/03/21 06:57 11/03/21 06:57 11/03/21 06:57 11/03/21 06:57 Discharge Data Data Completed and Pending Labs on day of discharge: Labs from last 24 hours 11/03/21 05:20 Sodium 138 Potassium 4.4 Chloride 106 Carbon Dioxide 24 Anion Gap 8.0 BUN 11 Creatinine 0.8 GFR Calculation 68 Glucose 90 Calcium 8.4 L Phosphorus 3.2 Albumin 2.4 L Discharge Plan Patient/Caregiver Discharge Instructions Activity: increase activity as tolerated Diet: Consistent Carbohydrate Prescriptions: Continued allopurinol 300 mg tablet 300 mg PO QDAY Qty: 90 3RF multivitamin Tablet 1 tab PO QDAY Qty: 90 0RF Rx Instructions: Please put in med box for her. glipizide 10 mg tablet 10 mg PO QDAY Qty: 90 0RF torsemide 20 mg tablet 100 mg PO QDAY 0RF loratadine [Allergy Relief (loratadine)] 10 mg tablet 10 mg PO QDAY Qty: 90 3RF potassium chloride 20 mEq tablet extended release 20 meq PO BID Qty: 180 1RF Label Comments: with food omeprazole 20 mg capsule,delayed release(DR/EC) 20 mg PO QDAY Qty: 90 1RF pramipexole 1 mg tablet See Rx Instructions .ROUTE .COMPLEX Qty: 90 0RF Dose Instruction: TAKE 1 TABLET BY MOUTH EVERY NIGHT AT BEDTIME Rx Instructions: TAKE 1 TABLET BY MOUTH EVERY NIGHT AT BEDTIME prazosin 2 mg capsule 2 mg PO QHS 90 Days Qty: 30 0RF (DME) Blood Glucose Test Strip See Rx Instructions .ROUTE .MEDSUPPLY Qty: 100 3RF Rx Instructions: use to test blood sugar twice daily carbidopa-levodopa [Sinemet] 25-100 mg tablet 1 tab PO TID Qty: 90 1RF (DME) diabetic shoes See Rx Instructions .Route .MEDSUPPLY Qty: 1 0RF Rx Instructions: use daily escitalopram oxalate 20 mg tablet 20 mg PO QDAY 90 Days Qty: 90 2RF hydralazine 25 mg tablet 25 mg PO BID 0RF (DME) Foam seat cushion See Rx Instructions .Route .MEDSUPPLY Qty: 1 0RF Rx Instructions: As directed for buttocks pressure ulcer aspirin 81 mg Tablet 81 mg PO DAILY 0RF Novolin 70/30 U-100 Insulin 100 unit/mL (70-30) suspension 25 unit SUBCUT BIDAC 0RF dextromethorphan-guaifenesin [Robafen DM Cough] 10-100 mg/5 mL Liquid 10 ml PO Q4HP PRN (Reason: Cough) Qty: 500 0RF clindamycin HCl 300 mg capsule 600 mg PO TID Qty: 30 0RF nicotine 14 mg/24 hr Patch 24 Hour 1 patch TRANSDERMAL QDAY 0RF colchicine 0.6 mg Tablet 0.6 mg PO BID 0RF simvastatin 5 mg tablet 5 mg PO BID 0RF levothyroxine 13 mcg capsule 37.5 mcg PO QDAY 0RF Follow Up Plan Follow up with: Ryan Samson MD [Primary Care Provider] - Patient Disposition: Xfer SNF Prognosis: Undetermined Rehab Potential: Fair I certify that the patient requires SNF services: Yes Overall status at discharge: patient is progressing back to baseline Discharge Orders: Discharge Order (Routine); Ordered 11/04/21 Ordered By: Jasper Lobo [facility] VTE Deep Vein Thrombosis/Pulmonary Embolism Present on Admission: No
[2021-11-03] MEDS: oxyCODONE/APAP 5/325MG TABLET PO PRN ×2 (11:41→21:55)
[2021-11-03] MEDS: PRAMIPEXOLE 1 MG TABLET PO SCH (21:53)
[2021-11-03] MEDS: PRAZOSIN 1 MG CAPSULE PO SCH (21:53)
[2021-11-03] MEDS: SENNOSIDES 1 TABLET PO SCH (21:54)
[2021-11-03] MEDS: SIMVASTATIN 10 MG TABLET PO SCH (21:54)
[2021-11-04] MEDS: 0.9 % SODIUM CHLORIDE 10 ML SYRINGE IV SCH (05:03)
[2021-11-04] MEDS: LEVOTHYROXINE 25 MCG TABLET PO SCH (07:58)
[2021-11-04] MEDS: glipiZIDE 5 MG TABLET PO SCH (07:58)
[2021-11-04] MEDS: INSULIN LISPRO 1 UNIT/0.01 ML UNIT SQ SCH ×2 (08:21→11:45)
[2021-11-04] MEDS: ACETAMINOPHEN 325 MG TABLET PO PRN (08:42)
[2021-11-04] MEDS: ASPIRIN 81 MG TAB.CHEW PO SCH (08:42)
[2021-11-04] MEDS: ALLOPURINOL 300 MG TABLET PO SCH (08:42)
[2021-11-04] MEDS: POTASSIUM CHLORIDE 20 MEQ TABLET PO SCH (08:42)
[2021-11-04] MEDS: HEPARIN 5,000 UNIT/ML VIAL SQ SCH (08:43)
[2021-11-04] MEDS: TORSEMIDE 10 MG TABLET PO SCH (08:43)
[2021-11-04] MEDS: COLCHICINE 0.6 MG CAPSULE PO SCH (08:45)
[2021-11-04] MEDS: hydrALAZINE 25 MG TABLET PO SCH (08:45)
[2021-11-04] MEDS: ESCITALOPRAM 20 MG TABLET PO SCH (08:45)
[2021-11-04] MEDS: OMEPRAZOLE 20 MG CAPSULE PO SCH (08:45)
[2021-11-04] MEDS: MULTIVIT,THER IRON,CA,FA & MIN 1 TABLET PO SCH (08:45)
[2021-11-04] MEDS: LORATADINE 10 MG TABLET PO SCH (08:45)
[2021-11-04] MEDS: CARBIDOPA/LEVODOPA 25/100 TABLET PO SCH (08:45)
[2021-11-04] MEDS: INSULIN, 75/25 NPL/LISPRO 1 UNIT/0.01 ML UNIT SQ SCH (08:46)
[2021-11-04] MEDS: DOCUSATE SODIUM 100 MG CAPSULE PO SCH (10:09)
[2021-11-04] MEDS: NICOTINE 14 MG PATCH TD SCH (10:10)
--- NOTE | 2021-11-04 10:14 | Internal Med Progress Note ---
SUBJECTIVE Subjective Patient information: Note initiated : 11/04/21 at 10:12 am Service Date, if different from initiated Date: [] Patient: Patsy Lam a 86 y/o F admitted on 10/30/21 for Fall. Chief Complaint: [] Interval history: Ms. Cherie Paula is a 86 year old F stage IV colon cancer, T2DM, CHF , CKD3, JANET on CPAP, Parkinson's Disease, Gout, essential HTN, hypothyroidism, current cigarette smoking status, recently admitted to [facility] under my (Dr. Shah's) care from 10/24- for COVID pneumonia, UTI, and coagulase negative staph bacteremia. She was being treated with supplemental oxygen therapy, dexamethasone, and Remdesivir for COVID pneumonia, and Rocephin for UTI and bacteremia. 2D echocardiogram was performed and no signs of endocarditis was seen. She was being discharged with clindamycin PO to finish a 2 week course for bacteremia. PT initially recommended SNF placement, but patient refused, so arrangement for home health therapy was instead made. Last night patient claimed that when she woke up from bed and went to bathroom, she was still tired and sleepy and hence fell. She denied any LOC. Denies any chest pain, palpitation, or SOB. She was to weak to get up by herself or call for help so she lying on the ground with feces. She was being found the next morning, and being sent to our ED for re-evaluation. Extensive workup was performed in the ED and no new intracranial pathologies was found. Labs showing serum Cr level of 1.4, and it was 1.3 yesterday at discharge, with rest of the labs no change from yesterday. Patient agreed to be admitted for SNF/rehab placement. Due to recent CoVID infection, she would have to wait until at least 11/04/21. 10/31: Afebrile overnight. On 2L/min oxygen. On clindamycin. Denies SOB, cough, or wheezing. Denies chest pain or palpitation. Denies fever, chills, or sweating. c/o general body weakness. Physical therapy: SNF/rehab placement, pending. 11/01: Patient no longer on oxygen. Still complains of overall weakness and mild general malaise. Asking about using her home lymphedema garment. Also concerned about constipation, uses milk of magnesia as needed at home along with stool softeners. Would like to try to get up and move around more, is going to have her walker brought in. I encouraged her to ambulate within her room. 11/02: Using lymphedema garment this morning. Receiving bowel care. Trying to ambulate in her room with her walker. Still generally weak from prior hospitalization and COVID-19. Remains on room air. 11/03 Patient complains of abdominal pain from her chronic pain associated with her metastatic lung cancer. 11/04 No new complaints or events overnight. Abdominal pain better today. Awaiting placement. Review of Systems: denies headache/fever/chills/nausea/vomiting/chest pain/cough/dyspnea/. Otherwise see above. Constitutional Vitals: Vital Signs Temp Pulse Resp BP Pulse Ox 96.9 F L 63 20 162/73 95 11/04/21 08:00 11/04/21 08:00 11/04/21 08:00 11/04/21 08:00 11/04/21 08:00 Period Temp Pulse Resp BP Sys/Simmons Pulse Ox Last 24 Hr 96.5 F-98.3 F 58-74 14-20 115-176/59-73 90-97 Intake and Output 11/03/21 11/04/21 11/04/21 21:59 05:59 13:59 Intake Total 1000 175 Balance 1000 175 Weight 122.47 kg Intake & Output: Intake & Output 11/03/21 11/04/21 11/04/21 21:59 05:59 13:59 Intake Total 1000 175 Balance 1000 175 Weight 122.47 kg Intake: Oral 1000 175 Other: Meal Breakfast Percent of Meal Consumed 100% Feeding Ability Independent Urine Appearance Clear Urine Color Bright Yellow Stool Size Small Stool Color Brown Stool Consistency Soft # Voids 1 1 1 # Bowel Movements 1 Exam: General: Alert, Awake, No acute Distress, obese Eyes/N/T: EOMI, Head/Neck: neck supple, CV: RRR, No murmurs, Pulm: Clear b/l, no wheezing/rhonchi/rales Abd: soft, nontender, +BS x4 Ext: no clubbing/cyanosis, Lymphedema Neuro: Alert, no focal deficits, moves all extremities, Skin: warm/dry OBJ DATA Labs CBC & Chem 7: 11/02/21 05:46 11/03/21 05:20 Labs: Abnormal Lab Results 11/03/21 11/02/21 11/02/21 05:20 05:46 05:46 Hgb 10.5 L MCHC 30.8 L RDW 15.8 H MPV 11.2 H Glucose 175 H Calcium 8.4 L 8.4 L Phosphorus 2.4 L Albumin 2.4 L 2.8 L Meds: Medications Acetaminophen (Acetaminophen 325 Mg Tablet) 650 mg PO Q6HP PRN; Protocol PRN Reason: Per Pain Protocol/Fever > 101 Last Admin: 11/04/21 08:42 Dose: 650 mg Documented by: Albuterol/Ipratropium (Ipratropium/Albuterol 3 Ml Ampul.Neb) 3 ml NEB Q4HRT PRN PRN Reason: Wheezing Allopurinol (Allopurinol 300 Mg Tablet) 300 mg PO QDAY [facility] Last Admin: 11/04/21 08:42 Dose: 300 mg Documented by: Aspirin (Aspirin 81 Mg Tab.Chew) 81 mg PO DAILY [facility] Last Admin: 11/04/21 08:42 Dose: 81 mg Documented by: Carbidopa/Levodopa (Carbidopa/Levodopa 25/100 Tablet) 1 tab PO TID [facility] Last Admin: 11/04/21 08:45 Dose: 1 tab Documented by: Colchicine (Colchicine 0.6 Mg Capsule) 0.6 mg PO BID [facility] Last Admin: 11/04/21 08:45 Dose: 0.6 mg Documented by: Dextrose (Dextrose 50% 50 Ml Vial) 0 ml IV UD PRN PRN Reason: Hypoglycemia Diagnostic Test (Pha) (Accu-Chek 1 Each Strip) 1 each FS ACHS [facility] Last Admin: 11/04/21 08:21 Dose: 1 each Documented by: Docusate Sodium (Docusate Sodium 100 Mg Capsule) 100 mg PO BID [facility] Last Admin: 11/04/21 10:09 Dose: Not Given Documented by: Escitalopram Oxalate (Escitalopram 20 Mg Tablet) 20 mg PO QDAY [facility] Last Admin: 11/04/21 08:45 Dose: 20 mg Documented by: Glipizide (Glipizide 5 Mg Tablet) 10 mg PO QAMAC [facility] Last Admin: 11/04/21 07:58 Dose: 10 mg Documented by: Glucose (Dextrose 31 Gm Oral.Susp) 15 gm PO PRN PRN PRN Reason: Hypoglycemia Guaifenesin (Guaifenesin/Dextromethorphan Oral Honey) 10 ml PO Q4HP PRN PRN Reason: Cough Last Admin: 10/30/21 21:24 Dose: 10 ml Documented by: Heparin Sodium (Porcine) (Heparin 5,000 Unit/Ml Vial) 5,000 unit SQ Q12 [facility] Last Admin: 11/04/21 08:43 Dose: 5,000 unit Documented by: Heparin Sodium (Porcine) (Heparin Flush 10 Units/Ml 5 Ml Syringe) 2 ml IV Q12 [facility] Last Admin: 11/04/21 08:45 Dose: 2 ml Documented by: Hydralazine HCl (Hydralazine 25 Mg Tablet) 25 mg PO BID [facility] Last Admin: 11/04/21 08:45 Dose: 25 mg Documented by: Insulin Human Lispro (Insulin Lispro 1 Unit/0.01 Ml Unit) 0 unit SQ ACHS [facility]; Protocol Last Admin: 11/04/21 08:21 Dose: Not Given Documented by: Insulin Lispro Protam/Lispro Human (Insulin, 75/25 Npl/Lispro 1 Unit/0.01 Ml Unit) 25 unit SQ BIDAC [facility] Last Admin: 11/04/21 08:46 Dose: 25 unit Documented by: Iron Carb/Multivit/[place]/Folic Acid (Multivit,Ther Iron,Ca,Fa & Min 1 Tablet) 1 tab PO DAILY [facility] Last Admin: 11/04/21 08:45 Dose: 1 tab Documented by: Levothyroxine Sodium (Levothyroxine 25 Mcg Tablet) 37.5 mcg PO QAMAC [facility] Last Admin: 11/04/21 07:58 Dose: 37.5 mcg Documented by: Loratadine (Loratadine 10 Mg Tablet) 10 mg PO QDAY [facility] Last Admin: 11/04/21 08:45 Dose: 10 mg Documented by: Magnesium Hydroxide (Magnesium Hydroxide 30 Ml Oral.Susp) 30 ml PO BIDP PRN PRN Reason: Constipation Last Admin: 11/01/21 22:50 Dose: 30 ml Documented by: Nicotine (Nicotine 14 Mg Patch) 14 mg TD QDAY [facility] Last Admin: 11/04/21 10:10 Dose: Not Given Documented by: Omeprazole (Omeprazole 20 Mg Capsule) 20 mg PO QDAY [facility] Last Admin: 11/04/21 08:45 Dose: 20 mg Documented by: Ondansetron HCl (Ondansetron 4 Mg/2 Ml Vial) 4 mg IV Q6HP PRN PRN Reason: Nausea And Vomiting Oxycodone/Acetaminophen (Oxycodone/Apap 5/325mg Tablet) 1 tab PO Q6HP PRN; Protocol PRN Reason: Per Pain Protocol Last Admin: 11/03/21 21:55 Dose: 1 tab Documented by: Potassium Chloride (Potassium Chloride 20 Meq Tablet) 20 meq PO BIDCC [facility] Last Admin: 11/04/21 08:42 Dose: 20 meq Documented by: Pramipexole Dihydrochloride (Pramipexole 1 Mg Tablet) 1 mg PO [facility] Last Admin: 11/03/21 21:53 Dose: 1 mg Documented by: Prazosin HCl (Prazosin 1 Mg Capsule) 2 mg PO [facility] Last Admin: 11/03/21 21:53 Dose: 2 mg Documented by: Senna (Sennosides 1 Tablet) 2 tab PO [facility] Last Admin: 11/03/21 21:54 Dose: Not Given Documented by: Simvastatin (Simvastatin 10 Mg Tablet) 5 mg PO [facility] Last Admin: 11/03/21 21:54 Dose: 5 mg Documented by: Sodium Chloride (0.9 % Sodium Chloride 10 Ml Syringe) 10 ml IV Q8 [facility] Last Admin: 11/04/21 05:03 Dose: Not Given Documented by: Torsemide (Torsemide 10 Mg Tablet) 100 mg PO DAILY [facility] Last Admin: 11/04/21 08:43 Dose: 100 mg Documented by: Zolpidem Tartrate (Zolpidem 5 Mg Tablet) 5 mg PO HSP PRN PRN Reason: Insomnia Last Admin: 11/03/21 23:52 Dose: 5 mg Documented by: A/P Narrative A/P Narrative: A: *Accidental fall: Likely 2/2 weakness from COVID-19/hospitalization/underlying medical illnesses as below -No fractures or joint dislocation *COVID-19 pneumonia: s/p hospitalization and completed therapy -Currently on room air, Remains in special airborne and contact isolation *Stage IV colon cancer: Outpatient f/u with oncologist *Chronic CHF, stable: Currently on room air *OLMAN on CKD III: *T2DM: A1c 11.8 *HTN: *Hypothyroidism: *Parkinson's Disease: *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; Nicotine replacement therapy *JANET: Continue CPAP at night while patient is sleeping *Anemia, normocytic normochromic: *Obesity: Plan: -Continue with PT and OT -Continue diabetic diet, 70/30 insulin, glipizide and SSI -Continue with home antihypertensives -Resume home diuretics -Continue home lymphedema garment -Continue with Sinemet -Continue with CPAP -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
[2021-11-04] MEDS ORDERED: HEPARIN SODIUM,PORCINE/PF 500 UNIT/5 ML SYRINGE IV ONE (12:19)
== END 2021-11-04 13:45 | DRG 948 ==
LOC: ED 09:02 → MEDSUR 14:30
PROVIDERS: ADMIT Internal Medicine; ATTEND Internal Medicine

== ENCOUNTER 2022-01-29 04:07 | Observation (INO) ==
[2022-01-29] MEDS ORDERED: IOPAMIDOL 100 ML BOTTLE IV ONE (04:08)
[2022-01-29] MEDS ORDERED: LACTATED RINGERS 1,000 ML IV ONE (04:27)
[2022-01-29] MEDS ORDERED: ONDANSETRON 4 MG/2 ML VIAL IV ONE (04:27)
[2022-01-29] MEDS ORDERED: 0.9 % SODIUM CHLORIDE 500 ML IV ONE ×2 (04:29→05:58)
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
[2022-01-29 04:56] LABS: POC Creatinine 1.5 mg/dL (0.6-1.2)
[2022-01-29 05:24] LABS: Basophils # (Auto) 0.05 K/mcL (0.00-0.30); Basophils % (Auto) 0.6 % (0.0-2.0); Eosinophils # (Auto) 0.19 K/mcL (0.00-0.70); Eosinophils % (Auto) 2.2 % (0.0-7.0); Lymphocytes % (Auto) 23.9 % (15.5-49.0); Mean Cell Volume 91.7 fL (80.0-100.0); Mean Corpuscular HGB Conc 32.5 g/dL (31.0-36.0); Mean Platelet Volume 11.8 fL (7.4-10.4); Monocytes # (Auto) 0.55 K/mcL (0.10-0.90); Monocytes % (Auto) 6.3 % (1.0-12.0); Platelet Count 274 K/mcL (140-440); RBC 4.36 M/mcL (3.59-5.38); Red Cell Distribution Width 14.2 % (11.5-14.5); WBC 8.8 K/mcL (4.5-11.0)
[2022-01-29 06:00] LABS: ALT/SGPT < 5 U/L (<40); AST/SGOT < 5 U/L (<32); Albumin 3.6 gm/dL (3.2-5.2); Albumin/Globulin Ratio 1.2 (1.0-2.3); Alkaline Phosphatase 108 U/L (39-117); Bilirubin,Total 0.2 mg/dL (0.1-1.0); Blood Urea Nitrogen 25 mg/dL (8-23); Calcium 9.4 mg/dL (8.6-10.4); Carbon Dioxide 24 mmol/L (22-30); Chloride 97 mmol/L (96-108); Glomerular Filtration Rate 34; Glucose 274 mg/dL (70-105)
--- NOTE | 2022-01-29 06:09 | Cat Scan Report ---
CLINICAL INFORMATION: Abdominal pain nausea and vomiting COMPARISON: Abdomen and pelvic CT 05/05/2019 and 10/30/2021 TECHNIQUE: Following enteric contrast, 80 cc of Isovue-370 were injected intravenously, and 60 seconds later, 0.625 mm helical slices were obtained from the mid heart through the subtrochanteric regions. Following reconstruction, 2.5 mm sagittal, coronal and axial reformatted images were processed and reviewed at bone, lung and soft tissue windows. Five minutes later, 0.625 mm helical slices were obtained from the mid heart through the kidneys and viewed at soft tissue windows.The exam was performed using radiation dose optimization techniques including, but not limited to, automated exposure control, adjustment of the mA and/or kV according to patient size and use of iterative reconstruction technique. FINDINGS: Moderate patchy mixed interstitial/alveolar airspace disease in the lung bases shows modest progression from the previous examination three months ago. This likely reflects interstitial fibrosis. A small alveolar infiltrate in the left lower lobe, prior exam, has cleared. There are no effusions. The visualized heart is grossly normal in size. Calcification seen in the aortic valve Abdominal images show minimal fatty change within the liver, but no focal hepatic lesions. A 4 cm well-circumscribed mass, posterior to the pancreatic head, is unchanged from the most recent CT . It is, however, new from the older CTs. It is thought represent a metastatic lymph node. It extrinsically compresses the intrapancreatic common bile duct resulting in mild upstream ductal dilatation of the extrahepatic ducts. Common bile duct 8 mm. No other lymph nodes identified. The remainder of the pancreas, both kidneys, adrenal glands, spleen and aorta are normal in size configuration and attenuation without focal lesion. There is no free air, or free fluid. Pelvic images show urinary bladder is normal. Hysterectomy and oophorectomy changes appreciated. Sigmoid diverticulosis noted. There is mild injection of the perisigmoid fat suggesting recurrent diverticulitis. The remaining colon, appendix region, small bowel and stomach are grossly normal. Bone windows show degenerative changes in the lumbar spine which are stable. There are no osseous metastases. There is moderate laxity of the inferior portion of the anterior abdominal wall with laparotomy scar in this region. A hematoma within the Camper's fascia of the central anterior abdominal wall has decreased in size now 4.1 cm. IMPRESSION: 1. Mild recurrent sigmoid diverticulitis. 2. 4 cm well-defined mass or lymph node in the retropancreatic region is stable, however it is a new finding from the older CTs. No other regions of adenopathy appreciated in the abdomen or pelvis. The mass slightly compresses the pancreatic portion of the bile duct resulting in mild common hepatic duct dilatation. No change 3. Moderate mixed interstitial/alveolar airspace disease in both lung bases shows moderate progression since exam over three months prior. This may be organizing fibrosis. Interval clearance of the focal alveolar infiltrate in the left lower lobe since previous exam. 4. Moderate laxity of the anterior abdominal wall in the pelvic region with a small hematoma deep Camper's fascia. This has decreased Interpreted and Authenticated by: Alec Wesley 01/29/22
[2022-01-29] MEDS ORDERED: metroNIDAZOLE 500 MG in PREMIX 1 BAG IV ONE (06:18)
[2022-01-29] MEDS ORDERED: CIPROFLOXACIN 400 MG/200 ML BAG IV ONE (06:18)
--- NOTE | 2022-01-29 09:53 | XRay Report ---
CLINICAL INFORMATION: Septic shock COMPARISON: 10/30/2021 TECHNIQUE: PA and Lateral views FINDINGS: Borderline cardiomegaly is unchanged. Left IJ Port-A-Cath tip is in stable satisfactory position of the SVC right atrial junction. Mediastinum and pulmonary vessels are normal. Minor bibasilar scarring/atelectasis noted. No definite infiltrates or effusions. IMPRESSION: Minor bibasilar atelectasis and/or scarring. Interpreted and Authenticated by: Alec Wesley 01/29/22
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
[2022-01-29] MEDS ORDERED: ONDANSETRON 4 MG/2 ML VIAL IV PRN (10:31)
[2022-01-29] MEDS ORDERED: DEXTROSE 50% 50 ML VIAL IV PRN (10:39)
[2022-01-29] MEDS ORDERED: DEXTROSE 31 GM ORAL.SUSP PO PRN (10:39)
--- NOTE | 2022-01-29 12:41 | EKG ---
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
[2022-01-29] MEDS ORDERED: METOCLOPRAMIDE 10 MG TABLET PO PRN (13:12)
--- NOTE | 2022-01-29 13:13 | Internal Med Progress Note ---
SUBJECTIVE Subjective Patient information: Note initiated : 01/29/22 at 1:07 pm Service Date, if different from initiated Date: [] Patient: Patsy Lam a 86 y/o F admitted on 01/29/22 for N/V/D. Chief Complaint: [] Interval history: History of present illness: Ms. Cherie Paula is a 86 year old F with history of CHF, CKD, diabetes, active metastatic colon cancer on immune modulation therapy (pembrolizumab) recent Covid pneumonia, chronic venous stasis, history of diverticulitis, hypertension, gout, hypothyroidism, Raynaud's syndrome, restless leg syndrome, tobacco dependence. She has 4 weeks of watery diarrhea with occasional nausea or vomiting. Also has some generalized abdominal pain. CT scan done in the emergency room shows mild recurrent sigmoid diverticulitis. She was started on Cipro and Flagyl in ER. 01/30 Constitutional Vitals: Vital Signs Temp Pulse Resp BP Pulse Ox 97.5 F 75 16 119/75 95 01/29/22 11:44 01/29/22 11:44 01/29/22 11:44 01/29/22 11:44 01/29/22 11:44 Period Temp Pulse Resp BP Sys/Simmons Pulse Ox Last 24 Hr 97.2 F-97.5 F 64-80 16-18 75-125/35-94 90-97 Intake and Output 01/28/22 01/29/22 01/29/22 21:59 05:59 13:59 Intake Total 500 800 Balance 500 800 Weight 107.501 kg 107.501 kg Patient Weight 01/30/22 05:59 Weight 107.501 kg Intake & Output: Intake & Output 01/28/22 01/29/22 01/29/22 21:59 05:59 13:59 Intake Total 500 800 Balance 500 800 Weight 107.501 kg 107.501 kg Intake: IV 500 800 Sodium Chloride 0.9% 500 ml @ 500 500 Wide Open IV BOLUS ONE Rx#: [id number] Flagyl 500 mg In Premix 1 Bag @ 100 100 mls/hr IV ONCE ONE Rx#: [id number] Exam: General: Alert, Awake, No acute Distress, obese Eyes/N/T: EOMI, Head/Neck: neck supple CV: RRR, No murmurs, Pulm: Clear b/l, no wheezing/rhonchi/rales Abd: soft, nontender, +BS x4 Ext: no clubbing/cyanosis/edema Neuro: Alert, no focal deficits, moves all extremities, Skin: warm/dry OBJ DATA Labs CBC & Chem 7: 01/29/22 04:51 01/29/22 04:50 Labs: Abnormal Lab Results 01/29/22 01/29/22 01/29/22 04:51 04:50 04:50 MPV 11.8 H Anion Gap 17.0 H BUN 25 H Creatinine 1.4 H POC Creatinine 1.5 H Glucose 274 H Meds: Medications Dextrose (Dextrose 50% 50 Ml Vial) 0 ml IV UD PRN PRN Reason: Per Sliding Scale Diagnostic Test (Pha) (Accu-Chek 1 Each Strip) 1 each FS ACHS MERLENE Glucose (Dextrose 31 Gm Oral.Susp) 15 gm PO PRN PRN PRN Reason: Hypoglycemia Heparin Sodium (Porcine) (Heparin 5,000 Unit/Ml Vial) 5,000 unit SQ Q12 MERLENE Sodium Chloride (Sodium Chloride 0.9%) 1,000 mls @ 100 mls/hr IV .Q10H MERLENE Ciprofloxacin (Cipro) 400 mg in 200 mls @ 200 mls/hr IV Q12H MERLENE; Protocol Metronidazole (Flagyl) 500 mg in 100 mls @ 100 mls/hr IV Q8H MERLENE; Protocol Insulin Glargine (Insulin Glargine, Human 1 Unit/0.01 Ml) 20 unit SQ DAILY MERLENE Insulin Human Lispro (Insulin Lispro 1 Unit/0.01 Ml Unit) 0 unit SQ ACHS MERLENE; Protocol Ondansetron HCl (Ondansetron 4 Mg/2 Ml Vial) 4 mg IV Q6HP PRN PRN Reason: Nausea And Vomiting Sodium Chloride (0.9 % Sodium Chloride 10 Ml Syringe) 10 ml IV Q8 MERLENE A/P Narrative A/P Narrative: A/P Narrative: #Hypovolemic shock: 2/2 dehydration from n/v -Responsive to IV fluids. Continue normal saline at 100 cc an hour. #Nausea/vomiting/diarrhea: she seems to have had diarrhea in the past as well -Although CT scan shows recurrent sigmoid diverticulitis, she most likely has a component of autoimmune colitis towards pembrolizumab. In which case the treatment is usually cessation of pembrolizumab. We can monitor her for a few days to determine if diarrhea improves. If it does not, would suggest high-dose prednisone therapy and transfer to a facility with oncology service. Meanwhile continue Cipro and Flagyl to cover diverticulitis. #OLMAN: Likely prerenal from dehydration. Trend daily BMP and avoid nephrotoxins. - #Colon cancer, invasive moderately differentiated: has been on pembrolizumab therapy -Her outpt oncologist note shows she demonstrated significant response to this therapy based on the CT findings. #Noted 4 cm mass/lymph node and retroperitoneal pancreatic region -Defer management to her oncologist. This note will be faxed to her oncology office. #DM 2: Poorly controlled -Is on steroids as part of her chemotherapy -Hold glipizide, She is on insulin 70/30-25 units twice a day at home. 50 units total daily dose -Will cover her with 20units of Lantus once daily & SSI #Chronic pain: on fentanyl 12 mcg an hour every 3 days-continue, resume Flexeril and tramadol as needed. #h/o CHF: hold torsemide due to dehydration. #Gout: resume allopurinol 300 mg daily #Restless leg syndrome: resume pramipexole 1 mg daily and Sinemet #Obese: BMI 36 #JANET on cpap: continue #Hypothyroidism: #GERD: #ppx: Lovenox daily / home H2 Time Spent With Patient Time: Total time spent is greater than 50% in coordination of care (as documented) at patient's floor/unit and/or counseling patient: QUALITY VTE Deep Vein Thrombosis/Pulmonary Embolism Present on Admission: No
[2022-01-29] MEDS ORDERED: LOPERAMIDE 2 MG CAPSULE PO PRN (13:15)
[2022-01-29] MEDS ORDERED: LOPERAMIDE 2 MG CAPSULE PO ONE (13:15)
[2022-01-29] MEDS ORDERED: fentaNYL 12 MCG PATCH TD SCH (13:15)
[2022-01-29] MEDS ORDERED: CYCLOBENZAPRINE 10 MG TABLET PO PRN (13:19)
--- NOTE | 2022-01-29 13:23 | Discharge Summary ---
Discharge Provider Provider Patient information: Note initiated : 01/29/22 at 1:21 pm Service Date, if different from initiated Date: [] Patient: Patsy Lam 86 y/o F admitted on 01/29/22 for N/V/D. Chief Complaint: [] Date of admission: 01/29/22 09:27 Discharge date: 01/31/22 Primary care physician: Ryan Samson MD Consults: 01/29/22 Consult to Physician [CONS] Stat Comment: Consulting Provider: Livia Michaels Reason For Exam: Physician to Consult Discharge Meds Discharge Medications Home Medications diabetic shoes #1 ea 03/19/21 [Rx Confirmed 01/29/22 Last Taken Unknown] Foam seat cushion #1 ea 05/06/21 [Rx Confirmed 01/29/22 Last Taken Unknown] allopurinol 300 mg tablet 300 mg PO QDAY #90 tab 05/28/21 [Rx Confirmed 01/29/22 Last Taken 01/28/22 12:00] hydralazine 25 mg tablet 25 mg PO BID tab 07/30/21 [History Confirmed 01/29/22 Last Taken 01/28/22 21:00] potassium chloride 20 mEq tablet,extended release 20 meq PO BID #180 tab 08/26/21 [Rx Confirmed 01/29/22 Last Taken 01/28/22 07:00] pramipexole 1 mg tablet See Rx Instructions .ROUTE .COMPLEX #90 tab 09/08/21 [Rx Confirmed 01/29/22 Last Taken 01/28/22 21:00] blood sugar diagnostic (Blood Glucose Test) #100 ea 10/08/21 [Rx Confirmed 01/29/22 Last Taken Unknown] carbidopa 25 mg-levodopa 100 mg tablet (Sinemet) 1 tab PO TID #90 tab 10/14/21 [Rx Confirmed 01/29/22 Last Taken 01/28/22 16:00] insulin human U-100 NPH-regulr 70-30 mix 100 unit/mL subcutaneous susp (Novolin 70/30 U-100 Insulin) 25 unit SUBCUT BIDAC 10/24/21 [History Confirmed 01/29/22 Last Taken 10/24/21 09:00] cpap #1 ea 11/11/21 [Rx Confirmed 01/29/22 Last Taken Unknown] fentanyl 12 mcg/hr transdermal patch 1 patch TRANSDERMAL Q72H ea 12/18/21 [History Confirmed 01/29/22 Last Taken 01/25/22] metoclopramide HCl 10 mg tablet 10 mg PO Q6H PRN tab 12/18/21 [History Confirmed 01/29/22 Last Taken 01/28/22 07:00] tramadol 50 mg tablet 50 mg PO Q4H PRN tab 12/18/21 [History Confirmed 01/29/22 Last Taken 01/28/22 07:00] cyclobenzaprine 10 mg tablet 10 mg PO TID PRN #20 tab 12/21/21 [Rx Confirmed 01/29/22 Last Taken 01/28/22 12:00] lidocaine 5 % topical patch 1 patch TOPICAL QDAY #1 ea 12/21/21 [Rx Confirmed 01/29/22 Last Taken 01/28/22 12:00] glipizide 5 mg tablet 5 mg PO BID #60 tab 12/30/21 [Rx Confirmed 01/29/22 Last Taken 01/28/22 15:00] levothyroxine 75 mcg tablet 37.5 mcg PO QDAY #15 tab 12/30/21 [Rx Confirmed 01/29/22 Last Taken 01/28/22 07:00] losartan 25 mg tablet 25 mg PO QDAY #30 tab 12/30/21 [Rx Confirmed 01/29/22 Last Taken 01/28/22 08:00] famotidine 20 mg tablet 20 mg PO BID #60 tab 01/02/22 [Rx Confirmed 01/29/22 Last Taken 01/28/22 17:00] prazosin 2 mg capsule 2 mg PO QHS #90 cap 01/28/22 [Rx Confirmed 01/29/22 Last Taken 01/28/22 21:00] torsemide 100 mg tablet 100 mg PO QDAY #90 tab 01/28/22 [Rx Confirmed 01/29/22 Last Taken 01/28/22 07:00] ciprofloxacin HCl 500 mg tablet (Cipro) 500 mg PO BID #8 tab 01/30/22 [Rx Last Taken Unknown] metronidazole 500 mg tablet 500 mg PO Q8H #12 tab 01/30/22 [Rx Last Taken Unknown] COURSE Hospital Course Hospital course: Interval history: History of present illness: Ms. Cherie Paula is a 86 year old F with history of CHF, CKD, diabetes, active metastatic colon cancer on immune modulation therapy (pembrolizumab) recent Covid pneumonia, chronic venous stasis, history of diverticulitis, hypertension, gout, hypothyroidism, Raynaud's syndrome, restless leg syndrome, tobacco dependence. She has 4 weeks of watery diarrhea with occasional nausea or vomiting. Also has some generalized abdominal pain. CT scan done in the emergency room shows mild recurrent sigmoid diverticulitis. She was started on Cipro and Flagyl in ER. 01/30 Patient got up in the middle the night to go the bathroom is out of bed and became lightheaded and passed out for a moment. Low blood pressure. Orthostatic hypotension. Patient given fluid bolus with improvement. Patient feels better this morning. No diarrhea overnight. No headache this morning. Renal function improved. 01/31 No issues overnight. Patient stable. No diarrhea. Hold pembrolizumab until seen by oncologist. A/P Narrative: #Hypovolemic shock: 2/2 dehydration from n/v #Nausea/vomiting/diarrhea: -Although CT scan shows recurrent sigmoid diverticulitis, she most likely has a component of autoimmune colitis towards pembrolizumab. In which case the treatment is usually cessation of pembrolizumab. #OLMAN: Likely prerenal from dehydration. Trend daily BMP and avoid nephrotoxins. #Colon cancer, invasive moderately differentiated: has been on pembrolizumab therapy -Her outpt oncologist note shows she demonstrated significant response to this therapy based on the CT findings. #Noted 4 cm mass/lymph node and retroperitoneal pancreatic region -Defer management to her oncologist. This note will be faxed to her oncology office. #DM 2: Poorly controlled #Chronic pain: on fentanyl 12 mcg an hour every 3 days-continue, resume Flexeril and tramadol as needed. #h/o CHF: #Gout: resume allopurinol 300 mg daily #Restless leg syndrome: resume pramipexole 1 mg daily and Sinemet #Obese: BMI 36 #JANET on cpap: continue #Hypothyroidism: #GERD: #ppx: Lovenox daily / home H2 Discharge diagnosis: Nausea vomiting diarrhea diverticulitis vs immune mediated colitis From [facility] Time Spent with Patient Time attestation: Total time spent providing and/or coordinating discharge services: Time spent: Greater than 30 minutes EXAM Constitutional Vitals: Temp Pulse Resp BP Pulse Ox 97.5 F 75 16 119/75 95 01/29/22 11:44 01/29/22 11:44 01/29/22 11:44 01/29/22 11:44 01/29/22 11:44 Discharge Data Data Completed and Pending Labs on day of discharge: Labs from last 24 hours 01/29/22 01/29/22 01/29/22 05:10 04:51 04:50 WBC 8.8 RBC 4.36 Hgb 13.0 Hct 40.0 MCV 91.7 MCH 29.8 MCHC 32.5 RDW 14.2 Plt Count 274 MPV 11.8 H Neut % (Auto) 67.0 Lymph % (Auto) 23.9 [place] % (Auto) 6.3 Eos % (Auto) 2.2 Baso % (Auto) 0.6 Lymph # (Auto) 2.10 [place] # (Auto) 0.55 Eos # (Auto) 0.19 Baso # (Auto) 0.05 Absolute Neutrophils 5.88 VBG Lactic Acid 1.4 Sodium Potassium Chloride Carbon Dioxide Anion Gap BUN Creatinine POC Creatinine 1.5 H GFR Calculation Glucose Calcium Total Bilirubin AST ALT Alkaline Phosphatase Total Protein Albumin Globulin Albumin/Globulin Ratio Lipase 01/29/22 04:50 WBC RBC Hgb Hct MCV MCH MCHC RDW Plt Count MPV Neut % (Auto) Lymph % (Auto) [place] % (Auto) Eos % (Auto) Baso % (Auto) Lymph # (Auto) [place] # (Auto) Eos # (Auto) Baso # (Auto) Absolute Neutrophils VBG Lactic Acid Sodium 138 Potassium 4.1 Chloride 97 Carbon Dioxide 24 Anion Gap 17.0 H BUN 25 H Creatinine 1.4 H POC Creatinine GFR Calculation 34 Glucose 274 H Calcium 9.4 Total Bilirubin 0.2 AST < 5 ALT < 5 Alkaline Phosphatase 108 Total Protein 6.6 Albumin 3.6 Globulin 3.0 Albumin/Globulin Ratio 1.2 Lipase 19 Discharge Plan Patient/Caregiver Discharge Instructions Activity: increase activity as tolerated Diet: Regular Diet Activity Restrictions/Additional Instructions: Send notes to oncologist. Follow-up with oncologist 3-10 days for possible reaction from pembrolizumab. Hold pembrolizumab until seen by oncologist. Prescriptions: New ciprofloxacin HCl [Cipro] 500 mg tablet 500 mg PO BID Qty: 8 0RF metronidazole 500 mg tablet 500 mg PO Q8H Qty: 12 0RF Continued allopurinol 300 mg tablet 300 mg PO QDAY Qty: 90 3RF potassium chloride 20 mEq tablet extended release 20 meq PO BID Qty: 180 1RF Label Comments: with food pramipexole 1 mg tablet See Rx Instructions .ROUTE .COMPLEX Qty: 90 0RF Dose Instruction: TAKE 1 TABLET BY MOUTH EVERY NIGHT AT BEDTIME Rx Instructions: TAKE 1 TABLET BY MOUTH EVERY NIGHT AT BEDTIME (DME) Blood Glucose Test Strip See Rx Instructions .ROUTE .MEDSUPPLY Qty: 100 3RF Rx Instructions: use to test blood sugar twice daily carbidopa-levodopa [Sinemet] 25-100 mg tablet 1 tab PO TID Qty: 90 1RF (DME) cpap See Rx Instructions .Route .MEDSUPPLY Qty: 1 0RF Rx Instructions: As directed per previous settings levothyroxine 75 mcg tablet 37.5 mcg PO QDAY Qty: 15 2RF losartan 25 mg tablet 25 mg PO QDAY Qty: 30 2RF glipizide 5 mg tablet 5 mg PO BID Qty: 60 2RF famotidine 20 mg tablet 20 mg PO BID Qty: 60 2RF torsemide 100 mg tablet 100 mg PO QDAY Qty: 90 0RF prazosin 2 mg capsule 2 mg PO QHS Qty: 90 1RF (DME) diabetic shoes See Rx Instructions .Route .MEDSUPPLY Qty: 1 0RF Rx Instructions: use daily hydralazine 25 mg tablet 25 mg PO BID 0RF fentanyl 12 mcg/hr patch 72 hour 1 patch transdermal Q72H 0RF Label Comments: [NO ORIGINAL SIG] metoclopramide HCl 10 mg tablet 10 mg PO Q6H PRN (Reason: NAUSEA) 0RF Label Comments: [NO ORIGINAL SIG] tramadol 50 mg tablet 50 mg PO Q4H PRN (Reason: pain) 0RF Label Comments: [NO ORIGINAL SIG] (DME) Foam seat cushion See Rx Instructions .Route .MEDSUPPLY Qty: 1 0RF Rx Instructions: As directed for buttocks pressure ulcer Novolin 70/30 U-100 Insulin 100 unit/mL (70-30) suspension 25 unit SUBCUT BIDAC 0RF lidocaine 5 % adhesive patch,medicated 1 patch topical QDAY Qty: 1 0RF Rx Instructions: leave on most painful area for up to 12 hrs cyclobenzaprine 10 mg tablet 10 mg PO TID PRN (Reason: muscle spasm) Qty: 20 0RF Follow Up Plan Follow up with: Ryan Samson MD [Primary Care Provider] - Patient Disposition: Home Health Service Prognosis: Fair Overall status at discharge: patient is progressing back to baseline Discharge Orders: Discharge Order (Routine); Ordered 01/31/22 Ordered By: Jasper Lobo [facility] VTE Deep Vein Thrombosis/Pulmonary Embolism Present on Admission: No
[2022-01-29] MEDS: 0.9 % SODIUM CHLORIDE 1,000 ML IV SCH ×2 (13:47→21:36)
[2022-01-29] MEDS: 0.9 % SODIUM CHLORIDE 10 ML SYRINGE IV SCH ×2 (13:53→20:43)
[2022-01-29] MEDS: metroNIDAZOLE 500 MG/100 ML BAG IV SCH (13:53)
[2022-01-29] MEDS: CARBIDOPA/LEVODOPA 25/100 TABLET PO SCH ×2 (14:43→21:39)
[2022-01-29] MEDS: traMADol 50 MG TABLET PO PRN ×2 (14:43→22:11)
[2022-01-29] MEDS: INSULIN LISPRO 1 UNIT/0.01 ML UNIT SQ SCH ×3 (14:44→21:37)
[2022-01-29] MEDS ORDERED: PRAZOSIN 1 MG CAPSULE PO SCH (21:00)
[2022-01-29] MEDS: HEPARIN 5,000 UNIT/ML VIAL SQ SCH (21:38)
[2022-01-29] MEDS: hydrALAZINE 25 MG TABLET PO SCH (21:39)
[2022-01-29] MEDS: PRAMIPEXOLE 1 MG TABLET PO SCH (21:40)
[2022-01-29] MEDS: FAMOTIDINE 20 MG TABLET PO SCH (21:40)
[2022-01-29] MEDS: CIPROFLOXACIN 400 MG/200 ML BAG IV SCH (21:42)
[2022-01-30] MEDS: metroNIDAZOLE 500 MG/100 ML BAG IV SCH ×4 (00:27→22:14)
[2022-01-30] MEDS: 0.9 % SODIUM CHLORIDE 10 ML SYRINGE IV SCH ×3 (06:00→22:13)
[2022-01-30 07:01] LABS: Basophils # (Auto) 0.03 K/mcL (0.00-0.30); Basophils % (Auto) 0.5 % (0.0-2.0); Eosinophils # (Auto) 0.25 K/mcL (0.00-0.70); Eosinophils % (Auto) 4.1 % (0.0-7.0); Hematocrit 35.9 % (34.1-44.9); Lymphocytes # (Auto) 0.56 K/mcL (1.50-4.80); Lymphocytes % (Auto) 9.2 % (15.5-49.0); Mean Cell Volume 97.3 fL (80.0-100.0); Mean Corpuscular HGB Conc 30.6 g/dL (31.0-36.0); Mean Platelet Volume 11.5 fL (7.4-10.4); Monocytes # (Auto) 0.37 K/mcL (0.10-0.90); Neutrophils % (Auto) 80.2 % (38.0-78.0); Platelet Count 223 K/mcL (140-440); RBC 3.69 M/mcL (3.59-5.38); Red Cell Distribution Width 14.4 % (11.5-14.5); WBC 6.1 K/mcL (4.5-11.0)
--- NOTE | 2022-01-30 07:22 | Internal Med Progress Note ---
SUBJECTIVE Subjective Patient information: Note initiated : 01/30/22 at 7:17 am Service Date, if different from initiated Date: [] Patient: Patsy Lam a 86 y/o F admitted on 01/29/22 for N/V/D. Chief Complaint: [] Interval history: History of present illness: Ms. Cherie Paula is a 86 year old F with history of CHF, CKD, diabetes, active metastatic colon cancer on immune modulation therapy (pembrolizumab) recent Covid pneumonia, chronic venous stasis, history of diverticulitis, hypertension, gout, hypothyroidism, Raynaud's syndrome, restless leg syndrome, tobacco dependence. She has 4 weeks of watery diarrhea with occasional nausea or vomiting. Also has some generalized abdominal pain. CT scan done in the emergency room shows mild recurrent sigmoid diverticulitis. She was started on Cipro and Flagyl in ER. 01/30 Patient got up in the middle the night to go the bathroom is out of bed and became lightheaded and passed out for a moment. Low blood pressure. Orthostatic hypotension. Patient given fluid bolus with improvement. Patient feels better this morning. No diarrhea overnight. No headache this morning. Renal function improved. Review of Systems: denies headache/fever/chills/nausea/vomiting/chest or abdominal p ain/cough/dyspnea. Otherwise see above. Constitutional Vitals: Vital Signs Temp Pulse Resp BP Pulse Ox 97.3 F 61 15 142/70 97 01/30/22 06:49 01/30/22 06:49 01/30/22 06:49 01/30/22 06:49 01/30/22 06:49 Period Temp Pulse Resp BP Sys/Simmons Pulse Ox Last 24 Hr 96.5 F-97.7 F 55-80 15-20 71-143/43-75 90-100 Intake and Output 01/29/22 01/30/22 01/30/22 21:59 05:59 13:59 Intake Total 400 780 Output Total 50 Balance 400 730 Weight 107.983 kg Intake & Output: Intake & Output 01/29/22 01/30/22 01/30/22 21:59 05:59 13:59 Intake Total 400 780 Output Total 50 Balance 400 730 Weight 107.983 kg Intake: IV 100 300 Oral 300 480 Output: Void Amount 50 Other: Meal Dinner Percent of Meal Consumed 100% Feeding Ability Assist with Tray Set Up Urine Appearance Clear Urine Color Bright Yellow Urine Odor Normal # Voids 1 Exam: General: Alert, Awake, No acute Distress, obese Eyes/N/T: EOMI, Head/Neck: neck supple CV: RRR, 2/6 SM Pulm: Clear b/l, no wheezing/rhonchi/rales Abd: soft, nontender, +BS x4 Ext: no clubbing/cyanosis/edema Neuro: Alert, no focal deficits, moves all extremities, Skin: warm/dry OBJ DATA Labs CBC & Chem 7: 01/30/22 06:09 01/30/22 06:08 Labs: Abnormal Lab Results 01/30/22 01/29/22 01/29/22 06:09 04:51 04:50 Hgb 11.0 L MCHC 30.6 L MPV 11.5 H 11.8 H Neut % (Auto) 80.2 H Lymph % (Auto) 9.2 L Lymph # (Auto) 0.56 L Anion Gap BUN Creatinine POC Creatinine 1.5 H Glucose 01/29/22 04:50 Hgb MCHC MPV Neut % (Auto) Lymph % (Auto) Lymph # (Auto) Anion Gap 17.0 H BUN 25 H Creatinine 1.4 H POC Creatinine Glucose 274 H Meds: Medications Allopurinol (Allopurinol 300 Mg Tablet) 300 mg PO QDAY [facility] Carbidopa/Levodopa (Carbidopa/Levodopa 25/100 Tablet) 1 tab PO TID [facility] Last Admin: 01/29/22 21:39 Dose: 1 tab Documented by: Cyclobenzaprine HCl (Cyclobenzaprine 10 Mg Tablet) 10 mg PO TIDP PRN PRN Reason: Muscle Spasm Dextrose (Dextrose 50% 50 Ml Vial) 0 ml IV UD PRN PRN Reason: Per Sliding Scale Diagnostic Test (Pha) (Accu-Chek 1 Each Strip) 1 each FS ACHS [facility] Last Admin: 01/29/22 20:43 Dose: 1 each Documented by: Famotidine (Famotidine 20 Mg Tablet) 20 mg PO BID [facility] Last Admin: 01/29/22 21:40 Dose: 20 mg Documented by: Fentanyl (Fentanyl 12 Mcg Patch) 12 mcg TD Q72H [facility] Last Admin: 01/29/22 13:49 Dose: Not Given Documented by: Glucose (Dextrose 31 Gm Oral.Susp) 15 gm PO PRN PRN PRN Reason: Hypoglycemia Heparin Sodium (Porcine) (Heparin 5,000 Unit/Ml Vial) 5,000 unit SQ Q12 [facility] Last Admin: 01/29/22 21:38 Dose: 5,000 unit Documented by: Hydralazine HCl (Hydralazine 25 Mg Tablet) 25 mg PO BID [facility] Last Admin: 01/29/22 21:39 Dose: 25 mg Documented by: Sodium Chloride (Sodium Chloride 0.9%) 1,000 mls @ 100 mls/hr IV .Q10H [facility] Last Admin: 01/29/22 21:36 Dose: Not Given Documented by: Ciprofloxacin (Cipro) 400 mg in 200 mls @ 200 mls/hr IV Q12H [facility]; Protocol Last Infusion: 01/30/22 00:45 Dose: Infused Documented by: Metronidazole (Flagyl) 500 mg in 100 mls @ 100 mls/hr IV Q8H [facility]; Protocol Last Admin: 01/30/22 05:59 Dose: 100 mls/hr Documented by: Insulin Glargine (Insulin Glargine, Human 1 Unit/0.01 Ml) 20 unit SQ DAILY [facility] Insulin Human Lispro (Insulin Lispro 1 Unit/0.01 Ml Unit) 0 unit SQ ACHS [facility]; Protocol Last Admin: 01/29/22 21:37 Dose: 3 units Documented by: Levothyroxine Sodium (Levothyroxine 75 Mcg Tablet) 37.5 mcg PO QAMAC [facility] Lidocaine (Lidocaine Patch) 1 patch TOPICAL QDAY [facility] Loperamide HCl (Loperamide 2 Mg Capsule) 2 mg PO PRN PRN PRN Reason: Diarrhea Last Admin: 01/29/22 13:47 Dose: 2 mg Documented by: Losartan Potassium (Losartan 25 Mg Tablet) 25 mg PO QDAY [facility] Metoclopramide HCl (Metoclopramide 10 Mg Tablet) 10 mg PO Q6HP PRN PRN Reason: Nausea Ondansetron HCl (Ondansetron 4 Mg/2 Ml Vial) 4 mg IV Q6HP PRN PRN Reason: Nausea And Vomiting Last Admin: 01/29/22 23:15 Dose: 4 mg Documented by: Pramipexole Dihydrochloride (Pramipexole 1 Mg Tablet) 1 mg PO [facility] Last Admin: 01/29/22 21:40 Dose: 1 mg Documented by: Prazosin HCl (Prazosin 1 Mg Capsule) 2 mg PO HS [facility] Last Admin: 01/29/22 21:39 Dose: 2 mg Documented by: Sodium Chloride (0.9 % Sodium Chloride 10 Ml Syringe) 10 ml IV Q8 [facility] Last Admin: 01/30/22 06:00 Dose: Not Given Documented by: Tramadol HCl (Tramadol 50 Mg Tablet) 50 mg PO Q4HP PRN PRN Reason: Pain Last Admin: 01/29/22 22:11 Dose: 50 mg Documented by: A/P Narrative A/P Narrative: A/P Narrative: #Hypovolemic shock: 2/2 dehydration from n/v -Responsive to IV fluids. Continue normal saline at 100 cc an hour. -Orthostatic hypotension last night #Nausea/vomiting/diarrhea: she seems to have had diarrhea in the past as well -Although CT scan shows recurrent sigmoid diverticulitis, she most likely has a component of autoimmune colitis towards pembrolizumab. In which case the treatment is usually cessation of pembrolizumab. We can monitor her for a few days to determine if diarrhea improves. If it does not, would suggest high-dose prednisone therapy and transfer to a facility with oncology service. Meanwhile continue Cipro and Flagyl to cover diverticulitis. 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 Trend daily BMP and avoid nephrotoxins. -improving #Colon cancer, invasive moderately differentiated: has been on pembrolizumab therapy -Her outpt oncologist note shows she demonstrated significant response to this therapy based on the CT findings. #Noted 4 cm mass/lymph node and retroperitoneal pancreatic region -Defer management to her oncologist. This note will be faxed to her oncology office. #DM 2: Poorly controlled -Is on steroids as part of her chemotherapy -Hold glipizide, She is on insulin 70/30-25 units twice a day at home. 50 units total daily dose -Will cover her with 20units of Lantus once daily & SSI #Chronic pain: on fentanyl, resume Flexeril and tramadol as needed #h/o CHF: hold torsemide due to dehydration. #Gout: resume allopurinol 300 mg daily #Restless leg syndrome: resume pramipexole 1 mg daily and Sinemet #Obese: BMI 36 #JANET on cpap: continue #Hypothyroidism: #GERD: #ppx: Lovenox daily / home H2 Time Spent With Patient Time: Total time spent is greater than 50% in coordination of care (as documented) at patient's floor/unit and/or counseling patient: [facility] VTE Deep Vein Thrombosis/Pulmonary Embolism Present on Admission: No
[2022-01-30 07:37] LABS: Blood Urea Nitrogen 20 mg/dL (8-23); Calcium 8.3 mg/dL (8.6-10.4); Carbon Dioxide 23 mmol/L (22-30); Chloride 103 mmol/L (96-108); Glomerular Filtration Rate 52; Glucose 183 mg/dL (70-105)
[2022-01-30] MEDS: INSULIN GLARGINE, HUMAN 1 UNIT/0.01 ML SQ SCH (07:56)
[2022-01-30] MEDS: ALLOPURINOL 300 MG TABLET PO SCH (07:57)
[2022-01-30] MEDS: LEVOTHYROXINE 75 MCG TABLET PO SCH (07:57)
[2022-01-30] MEDS: FAMOTIDINE 20 MG TABLET PO SCH ×2 (07:57→20:58)
[2022-01-30] MEDS: HEPARIN 5,000 UNIT/ML VIAL SQ SCH ×2 (07:57→20:58)
[2022-01-30] MEDS: hydrALAZINE 25 MG TABLET PO SCH ×2 (07:57→20:59)
[2022-01-30] MEDS: CARBIDOPA/LEVODOPA 25/100 TABLET PO SCH ×3 (07:57→20:58)
[2022-01-30] MEDS: LOSARTAN 25 MG TABLET PO SCH (07:57)
[2022-01-30] MEDS: INSULIN LISPRO 1 UNIT/0.01 ML UNIT SQ SCH ×4 (07:58→20:26)
[2022-01-30] MEDS: LIDOCAINE PATCH TOPICAL SCH (07:59)
[2022-01-30] MEDS: CIPROFLOXACIN 400 MG/200 ML BAG IV SCH ×2 (08:11→20:55)
[2022-01-30 08:45] LABS: Appearance,Urine HAZY (Clear); Bilirubin,Urine Negative (Negative); Color,Urine YELLOW; Culture Indicated,Urine No; Glucose,Urine (UA) Negative (Negative); Ketones,Urine Negative (Negative); Leukocyte Esterase,Urine Negative /uL (Negative); Mucus,Urine FEW /hpf; Nitrate,Urine Negative (Negative); Protein,Urine Negative (Negative); Specific Gravity,Urine 1.025 (1.000-1.035); Urine Blood Negative (Negative); Urine Hyaline Cast 3 /lph (0-2); Urine RBC 1 /hpf (0-3); Urine Squamous Epithelial Cell 1 /hpf (0-4); Urine WBC 1 /hpf (0-4); Urobilinogen,Urine Negative
[2022-01-30 10:42] LABS: Creatinine,Urine Random 81.1 mg/dL (28.0-217.0)
[2022-01-30] MEDS: 0.9 % SODIUM CHLORIDE 1,000 ML IV SCH ×3 (11:25→22:20)
[2022-01-30] MEDS: PRAMIPEXOLE 1 MG TABLET PO SCH (20:59)
[2022-01-31] MEDS: metroNIDAZOLE 500 MG/100 ML BAG IV SCH (05:23)
[2022-01-31] MEDS: 0.9 % SODIUM CHLORIDE 1,000 ML IV SCH (05:23)
[2022-01-31] MEDS: 0.9 % SODIUM CHLORIDE 10 ML SYRINGE IV SCH (05:24)
[2022-01-31] MEDS: INSULIN LISPRO 1 UNIT/0.01 ML UNIT SQ SCH (07:33)
[2022-01-31] MEDS: LEVOTHYROXINE 75 MCG TABLET PO SCH (07:37)
[2022-01-31] MEDS: traMADol 50 MG TABLET PO PRN (07:41)
[2022-01-31] MEDS: FAMOTIDINE 20 MG TABLET PO SCH (08:16)
[2022-01-31] MEDS: LOSARTAN 25 MG TABLET PO SCH (08:16)
[2022-01-31] MEDS: HEPARIN 5,000 UNIT/ML VIAL SQ SCH (08:16)
[2022-01-31] MEDS: ALLOPURINOL 300 MG TABLET PO SCH (08:16)
[2022-01-31] MEDS: CARBIDOPA/LEVODOPA 25/100 TABLET PO SCH (08:16)
[2022-01-31] MEDS: hydrALAZINE 25 MG TABLET PO SCH (08:16)
[2022-01-31] MEDS: INSULIN GLARGINE, HUMAN 1 UNIT/0.01 ML SQ SCH (08:17)
[2022-01-31] MEDS: CIPROFLOXACIN 400 MG/200 ML BAG IV SCH (08:24)
[2022-01-31] MEDS: LIDOCAINE PATCH TOPICAL SCH (09:36)
== END 2022-01-31 11:52 | disposition home health service (06) ==
LOC: ED 04:07 → MEDSUR 04:07
PROVIDERS: ADMIT Internal Medicine Medical Oncology; ATTEND Internal Medicine

== ENCOUNTER 2022-07-13 09:17 | Observation (INO) ==
[2022-07-13] MEDS ORDERED: 0.9 % SODIUM CHLORIDE 1,000 ML IV ONE ×2 (09:30→11:04)
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
[2022-07-13 09:38] LABS: POC Calcium, Ionized 1.21 (1.16-1.32); POC Creatinine 1.2 (0.6-1.2); POC Potassium 3.9 (3.3-5.1)
[2022-07-13 10:17] LABS: Basophils # (Auto) 0.06 K/mcL (0.00-0.30); Basophils % (Auto) 0.9 % (0.0-2.0); Eosinophils % (Auto) 3.1 % (0.0-7.0); Hematocrit 37.7 % (34.1-44.9); Hemoglobin 11.9 g/dL (11.2-15.7); Lymphocytes # (Auto) 2.04 K/mcL (1.50-4.80); Lymphocytes % (Auto) 31.9 % (15.5-49.0); Mean Cell Volume 95.2 fL (80.0-100.0); Mean Corpuscular HGB Conc 31.6 g/dL (31.0-36.0); Mean Platelet Volume 11.3 fL (7.4-10.4); Monocytes # (Auto) 0.41 K/mcL (0.10-0.90); Monocytes % (Auto) 6.4 % (1.0-12.0); Neutrophils % (Auto) 57.4 % (38.0-78.0); Platelet Count 224 K/mcL (140-440); RBC 3.96 M/mcL (3.59-5.38); Red Cell Distribution Width 13.4 % (11.5-14.5); WBC 6.4 K/mcL (4.5-11.0)
[2022-07-13 11:37] LABS: Amphetamine Screen,Urine None detected; Barbiturate Screen,Urine None detected; Benzodiazepines Screen,Urine None detected; Cannabinoid Screen,Urine None detected; Cocaine Screen,Urine None detected; Opiate Screen,Urine None detected; Oxycodone, Urine Screen None detected; Phencyclidine Screen,Urine None detected
--- NOTE | 2022-07-13 11:45 | Cat Scan Report ---
CLINICAL INFORMATION: Syncope-fall COMPARISON: 05/16/2022 TECHNIQUE: 2.5 mm helical slices were obtained in the skull base to vertex. Following reconstruction, axial reformatted images were reviewed at bone and parenchymal windows. The exam was performed using radiation dose optimization techniques including, but not limited to, automated exposure control, adjustment of the mA and/or kV according to patient size and use of iterative reconstruction technique. FINDINGS: The ventricles, sulci, fissures, and cisterns are symmetrically enlarged compatible with mild age-related atrophy. No extra-axial fluid collections are identified. Mild patchy chronic ischemic changes, in the deep cerebral white matter, are expected for age. There is no hemorrhage, mass effect, or edema. Bone windows show no osseous abnormality. IMPRESSION: Mild atrophy and chronic ischemic changes in the deep cerebral white matter-expected for age. No acute findings Subtotal opacification versus polyp posterior left ethmoid air cell. No change from CT two months ago Interpreted and Authenticated by: Alec Wesley 07/13/22
[2022-07-13] MEDS ORDERED: MECLIZINE 25 MG TABLET PO ONE (12:38)
--- NOTE | 2022-07-13 13:53 | XRay Report ---
CLINICAL INFORMATION: Shortness of breath COMPARISON: 05/16/2022 TECHNIQUE: Portable FINDINGS: The heart size, mediastinum and pulmonary vessels are unremarkable. Left IJ Port-A-Cath in stable satisfactory position. Mild perihilar scarring noted with scattered small calcified granulomas in both lungs. No infiltrates or definite new pulmonary abnormalities. There are no effusions. The bones and soft tissues are within normal limits. IMPRESSION: No acute disease. Interpreted and Authenticated by: Alec Wesley 07/13/22
[2022-07-13] MEDS ORDERED: diphenhydrAMINE 50 MG/ML VIAL IV ONE (14:11)
[2022-07-13] MEDS ORDERED: ACETAMINOPHEN 325 MG TABLET PO ONE (14:11)
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
[2022-07-13 15:10] LABS: Appearance,Urine Clear (Clear); Bilirubin,Urine Negative (Negative); Color,Urine Yellow; Culture Indicated,Urine No; Glucose,Urine (UA) Negative (Negative); Ketones,Urine Trace mg/dL (Negative); Leukocyte Esterase,Urine Negative /uL (Negative); Nitrate,Urine Negative (Negative); Protein,Urine Negative (Negative); Urine Blood Negative ery/mcL (Negative); Urobilinogen,Urine Normal
[2022-07-13] MEDS ORDERED: MAGNESIUM SULFATE 2 GM/50 ML BAG IV PRN (15:39)
[2022-07-13] MEDS ORDERED: POTASSIUM CHLORIDE 20 MEQ TABLET PO PRN ×2 (15:39)
[2022-07-13] MEDS ORDERED: LABETALOL 5 MG/ML ML IV PRN (15:39)
[2022-07-13] MEDS ORDERED: DEXTROSE 50% 50 ML VIAL IV PRN (15:39)
[2022-07-13] MEDS ORDERED: 0.9 % SODIUM CHLORIDE 1,000 ML IV SCH (15:39)
[2022-07-13] MEDS ORDERED: DEXTROSE 31 GM ORAL.SUSP PO PRN (15:39)
[2022-07-13] MEDS ORDERED: METOCLOPRAMIDE 10 MG/2 ML VIAL IV PRN (15:39)
[2022-07-13] MEDS ORDERED: IPRATROPIUM/ALBUTEROL 3 ML AMPUL.NEB NEB PRN (15:39)
[2022-07-13] MEDS ORDERED: POTASSIUM CHLORIDE 40 MEQ in DEXTROSE 5% IN WATER 500 ML IV PRN (15:39)
[2022-07-13] MEDS ORDERED: POLYETHYLENE GLYCOL 3350 17 GM PACKET PO PRN (15:39)
[2022-07-13] MEDS ORDERED: ONDANSETRON 4 MG/2 ML VIAL IV PRN (15:39)
[2022-07-13] MEDS ORDERED: SENNOSIDES 1 TABLET PO PRN (15:39)
[2022-07-13] MEDS ORDERED: CYCLOBENZAPRINE 10 MG TABLET PO PRN (17:13)
[2022-07-13] MEDS: INSULIN LISPRO 1 UNIT/0.01 ML UNIT SQ SCH ×2 (17:14→21:03)
--- NOTE | 2022-07-13 19:33 | EKG ---
[facility] Test Date: 2022-07-13 Pat Name: Patsy Paula Department: ED Room: Gender: Female Administrative Services Specialist: AW : [id number] Requested By: Alex Acosta Order Number: [id number] Reading MD: Ke Cardona Measurements Intervals [place] Rate: 69 P: 60 ND: 191 QRS: 97 QRSD: 164 T: 36 QT: 468 QTc: 502 Interpretive Statements Sinus rhythm RBBB and LPFB Electronically Signed On 07-13-2022 19:33:44 PDT by Ke Cardona /store/M0/[id number]
[2022-07-13] MEDS: FAMOTIDINE 20 MG TABLET PO SCH (20:18)
[2022-07-13] MEDS: MELATONIN 3 MG TABLET PO SCH (20:18)
[2022-07-13] MEDS: CARBIDOPA/LEVODOPA 25/100 TABLET PO SCH (20:18)
[2022-07-13] MEDS: hydrALAZINE 25 MG TABLET PO SCH ×2 (20:18→21:03)
[2022-07-13] MEDS: PRAZOSIN 1 MG CAPSULE PO SCH ×2 (20:19→21:03)
[2022-07-13] MEDS: 0.9 % SODIUM CHLORIDE 10 ML SYRINGE IV SCH (22:53)
[2022-07-14] MEDS: ACETAMINOPHEN 325 MG TABLET PO PRN ×3 (04:45→21:53)
[2022-07-14] MEDS: 0.9 % SODIUM CHLORIDE 10 ML SYRINGE IV SCH ×3 (04:46→21:54)
[2022-07-14 06:21] LABS: Basophils # (Auto) 0.06 K/mcL (0.00-0.30); Eosinophils # (Auto) 0.22 K/mcL (0.00-0.70); Eosinophils % (Auto) 3.7 % (0.0-7.0); Hematocrit 36.3 % (34.1-44.9); Hemoglobin 11.2 g/dL (11.2-15.7); Lymphocytes # (Auto) 2.42 K/mcL (1.50-4.80); Mean Cell Volume 97.3 fL (80.0-100.0); Mean Corpuscular HGB Conc 30.9 g/dL (31.0-36.0); Mean Platelet Volume 11.4 fL (7.4-10.4); Monocytes # (Auto) 0.37 K/mcL (0.10-0.90); Monocytes % (Auto) 6.3 % (1.0-12.0); Neutrophils % (Auto) 47.8 % (38.0-78.0); Platelet Count 199 K/mcL (140-440); RBC 3.73 M/mcL (3.59-5.38); Red Cell Distribution Width 13.5 % (11.5-14.5); WBC 5.9 K/mcL (4.5-11.0)
[2022-07-14 07:04] LABS: ALT/SGPT < 5 U/L (<40); AST/SGOT 16 U/L (<32); Albumin/Globulin Ratio 1.4 (1.0-2.3); Alkaline Phosphatase 79 U/L (39-117); Bilirubin,Direct < 0.2 mg/dL (0-0.3); Bilirubin,Total 0.2 mg/dL (0.1-1.0); Blood Urea Nitrogen 11 mg/dL (8-23); Calcium 8.6 mg/dL (8.6-10.4); Carbon Dioxide 27 mmol/L (22-30); Chloride 105 mmol/L (96-108); Globulin 2.1 gm/dL (2.2-3.7); Glomerular Filtration Rate 51; Glucose 123 mg/dL (70-105); Lactate Dehydrogenase 176 U/L (135-225); Phosphorous 3.3 mg/dL (2.5-4.5); Triglycerides 126 mg/dL (<150); Uric Acid 5.7 mg/dL (2.5-8.0)
[2022-07-14] MEDS: INSULIN LISPRO 1 UNIT/0.01 ML UNIT SQ SCH ×4 (07:45→20:57)
[2022-07-14] MEDS: hydrALAZINE 25 MG TABLET PO SCH ×2 (08:25→20:57)
[2022-07-14] MEDS: ASPIRIN 81 MG TAB.CHEW PO SCH (08:25)
[2022-07-14] MEDS: LOSARTAN 25 MG TABLET PO SCH (08:25)
[2022-07-14] MEDS: ESCITALOPRAM 20 MG TABLET PO SCH (08:26)
[2022-07-14] MEDS: ALLOPURINOL 300 MG TABLET PO SCH (08:26)
[2022-07-14] MEDS: LEVOTHYROXINE 75 MCG TABLET PO SCH (08:26)
[2022-07-14] MEDS: FAMOTIDINE 20 MG TABLET PO SCH ×2 (08:26→21:52)
[2022-07-14] MEDS: ENOXAPARIN 40 MG/0.4 ML SYRINGE SQ SCH (08:26)
[2022-07-14] MEDS: CARBIDOPA/LEVODOPA 25/100 TABLET PO SCH ×3 (08:26→21:53)
--- NOTE | 2022-07-14 08:29 | Internal Med Progress Note ---
SUBJECTIVE Subjective Patient information: Note initiated : 07/14/22 at 8:26 am Service Date, if different from initiated Date: [] Patient: Patsy Lam a 86 y/o F admitted on 07/13/22 for syncope, vomiting/diarrhea. Chief Complaint: [] Interval history: History of present illness: Ms. Cherie Paula is a 86 year old F Presents to ED after syncopal episode on the toilet and generalized weakness. Patient in her normal state of health which is poor at baseline to begin with; who went to the toilet because she was having diarrhea which is been essentially normal for her over the past months and felt a little dizzy and while she was on the toilet she says she passed out being off the wall. She then said when she woke up she had episode nausea vomiting and then called EMS from the phone she had on her walker. Patient denies headache fevers but states she has some chills. She has chronic abdominal pain. She has some baseline shortness of breath. In the ED she was orthostatic. ED staff got her up several times but she was too weak to get up and move around and very dizzy and unsteady on her feet. In the ED she has stool that I am told was for the most part formed. Lives by herself and not felt to be safe to go home. Patient says she has had difficulty taking care of her self at home and likely needs higher level of car e. Patient started on IV fluid in the ED. 07/14 No overnight event or new complaints. No diarrhea. No nausea vomiting. Review of Systems: denies headache/fever/chills/chest or abdominal pain/cough/dyspnea/diarrhea. Otherwise see above. Constitutional Vitals: Vital Signs Temp Pulse Resp BP Pulse Ox O2 Del Method 97.3 F 56 L 15 151/64 93 07/14/22 08:01 07/14/22 06:01 07/14/22 08:01 07/14/22 08:01 07/14/22 08:01 07/14/22 04:01 Period Temp Pulse Resp BP Sys/Simmons Pulse Ox O2 Del Method O2 Flow Rate Last 24 Hr 97.3 F-97.9 F 54-75 5-25 73-158/41-92 84-98 Room Air-Room Air Intake and Output 0907/14/22 07/14/22 21:59 05:59 13:59 Intake Total 360 1120 Output Total 325 250 150 Balance 35 870 -150 Weight 99.019 kg Intake & Output: Intake & Output 07/13/22 07/14/22 07/14/22 21:59 05:59 13:59 Intake Total 360 1120 Output Total 325 250 150 Balance 35 870 -150 Weight 99.019 kg Intake: IV 1000 Sodium Chloride 0.9% 1,000 ml @ 1000 75 mls/hr IV .[id number] [facility] Rx#: [id number] Oral 360 120 Output: Void Amount 325 250 150 Other: Meal Dinner Percent of Meal Consumed 100% Feeding Ability Independent Urine Appearance Clear Clear Urine Color Tea Colored Bright Yellow Urine Odor Normal Normal Stool Size Moderate Stool Color Brown Stool Consistency Soft # Bowel Movements 1 Exam: General: Alert, Awake, No acute Distress, obese Eyes/N/T: EOMI, Head/Neck: neck supple, CV: RRR, 2/6 SM, normal s1/s2 Pulm: Clear b/l, no wheezing/rhonchi/rales Abd: soft, nontender, +BS x4 Ext: no clubbing/cyanosis/edema Neuro: Alert, no focal deficits, moves all extremities, Skin: warm/dry OBJ DATA Labs CBC & Chem 7: 07/14/22 05:34 07/14/22 05:34 Labs: Abnormal Lab Results 07/14/22 07/14/22 07/13/22 05:34 05:34 10:00 MCHC 30.9 L MPV 11.4 H POC Total CO2 Glucose 123 H POC Glucose Total Protein 5.1 L Albumin 3.0 L Globulin 2.1 L Urine Ketones Trace A 07/13/22 07/13/22 09:35 09:30 MCHC MPV 11.3 H POC Total CO2 31.0 H Glucose POC Glucose 204 H Total Protein Albumin Globulin Urine Ketones Meds: Medications Acetaminophen (Acetaminophen 325 Mg Tablet) 650 mg PO Q6HP PRN; Protocol PRN Reason: Per Pain Protocol/Fever > 101 Last Admin: 07/14/22 04:45 Dose: 650 mg Albuterol/Ipratropium (Ipratropium/Albuterol 3 Ml Ampul.Neb) 3 ml NEB Q4HP PRN PRN Reason: Shortness Of Breath Allopurinol (Allopurinol 300 Mg Tablet) 300 mg PO QDAY [facility] Last Admin: 07/14/22 08:26 Dose: 300 mg Aspirin (Aspirin 81 Mg Tab.Chew) 81 mg PO DAILY [facility] Last Admin: 07/14/22 08:25 Dose: 81 mg Carbidopa/Levodopa (Carbidopa/Levodopa 25/100 Tablet) 1 tab PO TID [facility] Last Admin: 07/14/22 08:26 Dose: 1 tab Cyclobenzaprine HCl (Cyclobenzaprine 10 Mg Tablet) 10 mg PO TIDP PRN PRN Reason: Muscle Spasm Last Admin: 07/13/22 20:18 Dose: 10 mg Dextrose (Dextrose 50% 50 Ml Vial) 0 ml IV UD PRN PRN Reason: Per Sliding Scale Diagnostic Test (Pha) (Accu-Chek 1 Each Strip) 1 each FS ACHS [facility] Last Admin: 07/14/22 07:45 Dose: 1 each Enoxaparin Sodium (Enoxaparin 40 Mg/0.4 Ml Syringe) 40 mg SQ DAILY [facility] Last Admin: 07/14/22 08:26 Dose: 40 mg Escitalopram Oxalate (Escitalopram 20 Mg Tablet) 20 mg PO QDAY [facility] Last Admin: 07/14/22 08:26 Dose: 20 mg Famotidine (Famotidine 20 Mg Tablet) 20 mg PO BID [facility] Last Admin: 07/14/22 08:26 Dose: 20 mg Glucose (Dextrose 31 Gm Oral.Susp) 15 gm PO PRN PRN PRN Reason: Hypoglycemia Hydralazine HCl (Hydralazine 25 Mg Tablet) 25 mg PO BID [facility] Last Admin: 07/14/22 08:25 Dose: 25 mg Potassium Chloride 40 meq/ (Dextrose) 520 mls @ 130 mls/hr IV UD PRN PRN Reason: Potassium < 3 Magnesium Sulfate (Magnesium Sulfate) 2 gm in 50 mls @ 50 mls/hr IV UD PRN PRN Reason: Magnesium </= 1.6 Insulin Human Lispro (Insulin Lispro 1 Unit/0.01 Ml Unit) 0 unit SQ ACHS [facility]; Protocol Last Admin: 07/14/22 07:45 Dose: Not Given Labetalol HCl (Labetalol 5 Mg/Ml Ml) 0 mg IV Q2HP PRN PRN Reason: Hypertension Levothyroxine Sodium (Levothyroxine 75 Mcg Tablet) 37.5 mcg PO QDAY [facility] Last Admin: 07/14/22 08:26 Dose: 37.5 mcg Losartan Potassium (Losartan 25 Mg Tablet) 25 mg PO QDAY [facility] Last Admin: 07/14/22 08:25 Dose: 25 mg Melatonin (Melatonin 3 Mg Tablet) 3 mg PO HS [facility] Last Admin: 07/13/22 20:18 Dose: 3 mg Metoclopramide HCl (Metoclopramide 10 Mg/2 Ml Vial) 10 mg IV Q6HP PRN PRN Reason: Nausea And Vomiting Ondansetron HCl (Ondansetron 4 Mg/2 Ml Vial) 4 mg IV Q4HP PRN PRN Reason: Nausea And Vomiting Polyethylene Glycol (Polyethylene Glycol 3350 17 Gm Packet) 17 gm PO DAILYP PRN PRN Reason: Constipation Potassium Chloride (Potassium Chloride 20 Meq Tablet) 40 meq PO UD PRN PRN Reason: Potssium is 3-3.5 Potassium Chloride (Potassium Chloride 20 Meq Tablet) 40 meq PO UD PRN PRN Reason: Potassium < 3 Prazosin HCl (Prazosin 1 Mg Capsule) 2 mg PO [facility] Last Admin: 07/13/22 21:03 Dose: Not Given Senna (Sennosides 1 Tablet) 2 tab PO DAILYP PRN PRN Reason: Constipation Sodium Chloride (0.9 % Sodium Chloride 10 Ml Syringe) 10 ml IV Q8 [facility] Last Admin: 07/14/22 04:46 Dose: 10 ml Torsemide (Torsemide 20 Mg Tablet) 100 mg PO DAILY [facility] Last Admin: 07/14/22 08:25 Dose: 100 mg A/P Narrative A/P Narrative: A: *Generalized weakness/deconditioning: -Patient may need higher level of care like assisted living facility *Syncope and Hypotension: Likely vasovagal vs orthostatic *Colon cancer, invasive moderately differentiated: has been on pembrolizumab therapy, with chronic diarrhea -Follows with Dr. Gray *Chronic abdominal pain: 2/2 above *DM2: 9.9 *CKD III: *HTN: *Obesity: BMI 33 *JANET: Has not been on CPAP for a while *Hypothyroidism: *GERD: *Depression/anxiety: *Tobacco abuse: Patient down to 1 cigarette a day P: -s/p IVF -monitor on tele -check orthostatic VS -Continue home hydralazine/losartan -Hold torsemide for now -cont home basal insulin, and SSI -PT/OT -CM for placement -ppx: Lovenox / home H2 Time Spent With Patient Time: Total time spent is greater than 50% in coordination of care (as documented) at patient's floor/unit and/or counseling patient: Total time spent with greater than 50% in coordination of care (as documented) at patient's floor/unit and/or counseling patient:: 25 - 35 minutes QUALITY VTE Deep Vein Thrombosis/Pulmonary Embolism Present on Admission: No
[2022-07-14] MEDS ORDERED: TORSEMIDE 20 MG TABLET PO SCH (09:00)
[2022-07-14] MEDS ORDERED: 0.9 % SODIUM CHLORIDE 500 ML IV ONE (09:28)
[2022-07-14] MEDS: PRAZOSIN 1 MG CAPSULE PO SCH (20:57)
[2022-07-14] MEDS: MELATONIN 3 MG TABLET PO SCH (21:52)
[2022-07-15] MEDS: 0.9 % SODIUM CHLORIDE 10 ML SYRINGE IV SCH ×2 (05:59→15:09)
[2022-07-15] MEDS: INSULIN LISPRO 1 UNIT/0.01 ML UNIT SQ SCH ×3 (08:01→17:09)
[2022-07-15] MEDS: ASPIRIN 81 MG TAB.CHEW PO SCH (09:08)
[2022-07-15] MEDS: ALLOPURINOL 300 MG TABLET PO SCH (09:08)
[2022-07-15] MEDS: LOSARTAN 25 MG TABLET PO SCH (09:08)
[2022-07-15] MEDS: LEVOTHYROXINE 75 MCG TABLET PO SCH (09:08)
[2022-07-15] MEDS: ENOXAPARIN 40 MG/0.4 ML SYRINGE SQ SCH (09:09)
[2022-07-15] MEDS: hydrALAZINE 25 MG TABLET PO SCH (09:09)
[2022-07-15] MEDS: FAMOTIDINE 20 MG TABLET PO SCH (09:09)
[2022-07-15] MEDS: CARBIDOPA/LEVODOPA 25/100 TABLET PO SCH ×2 (09:09→15:09)
[2022-07-15] MEDS: ESCITALOPRAM 20 MG TABLET PO SCH (09:09)
[2022-07-15] MEDS: ACETAMINOPHEN 325 MG TABLET PO PRN (10:23)
--- NOTE | 2022-07-15 11:07 | Discharge Summary ---
Discharge Provider Provider IMPORTANT FOLLOW-UP INFORMATION FOR PCP: Patient information: Note initiated : 07/15/22 at 11:05 am Service Date, if different from initiated Date: [] Patient: Patsy Lam a 86 y/o F admitted on 07/13/22 for syncope, vomiting/diarrhea. Chief Complaint: [] Date of admission: 07/13/22 15:31 Discharge date: 07/15/22 Primary care physician: Ryan Samson MD Consults: 07/13/22 Consult to Physician [CONS] Stat Comment: dizziness, physical deconditioning Consulting Provider: Jasper Lobo Reason For Exam: Physician to Consult COURSE Hospital Course Hospital course: Ms. Chreie Paula is a 86 year old F Presents to ED after syncopal episode on the toilet and generalized weakness. Patient in her normal state of health which is poor at baseline to begin with; who went to the toilet because she was having diarrhea which is been essentially normal for her over the past months and felt a little dizzy and while she was on the toilet she says she passed out being off the wall. She then said when she woke up she had episode nausea vomiting and then called EMS from the phone she had on her walker. Patient denies headache fevers but states she has some chills. She has chronic abdominal pain. She has some baseline shortness of breath. In the ED she was orthostatic. ED staff got her up several times but she was too weak to get up and move around and very dizzy and unsteady on her feet. In the ED she has stool that I am told was for the most part formed. Lives by herself and not felt to be safe to go home. Patient says she has had difficulty taking care of her self at home and likely needs higher level of care. Patient started on IV fluid in the ED. 07/14 No overnight event or new complaints. No diarrhea. No nausea vomiting. 07/15 No overnight events. The patient is near her baseline, the plan is to discharge to home today and continuing home health and care transition mgr support. The patient requested a review of her medications. I reduce the dose of torsemide from 100 mg to 20 mg daily, discontinued supplemental potassium, discontinued prazosin and hydralazine, discontinued as needed cyclobenzaprine and metoclopramide. All these medications were being given at reduced doses or held during this hospitalization with no adverse effect. We will have the patient follow-up with her primary care provider, I recommend checking blood pressure, assessing the patient's volume status given the reduction in torsemide dose obtaining a basic metabolic panel to follow potassium and electrolytes with recent diuretic dose changes. Discharge diagnosis: Syncope Time Spent with Patient Time attestation: Total time spent providing and/or coordinating discharge services: Time spent: Greater than 30 minutes EXAM Constitutional Vitals: Temp Pulse Resp BP Pulse Ox O2 Del Method 97.5 F 52 L 16 139/68 91 07/15/22 07:11 07/15/22 07:11 07/15/22 07:11 07/15/22 07:11 07/15/22 07:07/15/22 07:11 Discharge Plan Patient/Caregiver Discharge Instructions Activity: increase activity as tolerated Diet: Low Sodium (2gm) and Consistent Carbohydrate Prescriptions: New torsemide 20 mg tablet 20 mg PO QDAY Qty: 60 4RF Continued escitalopram oxalate 20 mg tablet 20 mg PO QDAY 90 Days Qty: 90 3RF carbidopa-levodopa [Sinemet] 25-100 mg tablet 1 tab PO TID Qty: 90 5RF Rx Instructions: @0800, 1200, 1600 allopurinol 300 mg tablet 300 mg PO QDAY Qty: 90 1RF famotidine 20 mg tablet 20 mg PO BID Qty: 60 2RF glipizide 5 mg tablet 5 mg PO BID Qty: 60 2RF levothyroxine 75 mcg tablet 37.5 mcg PO QDAY Qty: 15 2RF losartan 25 mg tablet 25 mg PO QDAY Qty: 90 1RF (DME) diabetic shoes See Rx Instructions .Route .MEDSUPPLY Qty: 1 0RF Rx Instructions: use daily (DME) Blood Glucose Test Strip See Rx Instructions .ROUTE .MEDSUPPLY Qty: 100 3RF Rx Instructions: use to test blood sugar twice daily aspirin [Adult Aspirin Regimen] 81 mg tablet,delayed release (DR/EC) 81 mg PO QDAY multivitamin Tablet 1 tab PO QDAY melatonin 5 mg tablet 5 mg PO HS acetaminophen [Tylenol Extra Strength] 500 mg tablet 1,000 mg PO Q6H PRN (Reason: Pain) Discontinued prazosin 2 mg capsule 2 mg PO QHS Qty: 90 1RF hydralazine 25 mg tablet 25 mg PO BID Qty: 60 2RF torsemide 100 mg tablet 100 mg PO QDAY Qty: 90 0RF potassium chloride 20 mEq tablet extended release 20 meq PO BID Qty: 180 1RF Label Comments: with food cyclobenzaprine 10 mg tablet 10 mg PO TID PRN (Reason: muscle spasm) Qty: 20 0RF metoclopramide HCl 10 mg tablet 10 mg PO Q6H PRN (Reason: nausea and vomiting) Qty: 15 0RF Follow Up Plan Follow up with: Ryan Samson MD [Primary Care Provider] - Patient Disposition: Home Health Service Prognosis: Fair Overall status at discharge: patient is progressing back to baseline Discharge Orders: Discharge Order (Routine); Ordered 07/15/22 Ordered By: Eliu STRATTON VTE Deep Vein Thrombosis/Pulmonary Embolism Present on Admission: No
[2022-07-15] MEDS ORDERED: HEPARIN SODIUM,PORCINE/PF 500 UNIT/5 ML SYRINGE IV ONE (16:00)
== END 2022-07-15 17:50 | disposition home health service (06) ==
LOC: ED 09:17 → ICU 09:17 → MEDSUR 07-14 17:45
PROVIDERS: ADMIT Internal Medicine; ATTEND Internal Medicine

== ENCOUNTER 2024-07-01 20:05 | Inpatient (IN) ==
[2024-07-01] MEDS ORDERED: IOPAMIDOL 100 ML BOTTLE IV ONE (20:06)
[2024-07-01 20:46] LABS: Basophils # (Auto) 0.06 K/mcL (0.00-0.30); Basophils % (Auto) 0.5 % (0.0-2.0); Eosinophils # (Auto) 0.54 K/mcL (0.00-0.70); Eosinophils % (Auto) 4.8 % (0.0-7.0); Hematocrit 38.1 % (34.1-44.9); Hemoglobin 12.2 g/dL (11.2-15.7); Lymphocytes # (Auto) 1.36 K/mcL (1.50-4.80); Lymphocytes % (Auto) 12.1 % (15.5-49.0); Mean Cell Volume 95.3 fL (80.0-100.0); Mean Platelet Volume 9.9 fL (8.8-12.5); Monocytes # (Auto) 0.88 K/mcL (0.10-0.90); Monocytes % (Auto) 7.8 % (1.0-12.0); Neutrophils % (Auto) 74.3 % (38.0-78.0); Platelet Count 448 K/mcL (140-440); Red Cell Distribution Width 12.3 % (11.5-14.5); WBC 11.3 K/mcL (4.5-11.0)
[2024-07-01 21:04] LABS: ALT/SGPT 9 U/L (<40); AST/SGOT 23 U/L (<32); Albumin 2.6 gm/dL (3.2-5.2); Albumin/Globulin Ratio 0.8 (1.0-2.3); Alkaline Phosphatase 93 U/L (39-117); Bilirubin,Total 0.2 mg/dL (0.1-1.0); Blood Urea Nitrogen 15 mg/dL (8-23); Calcium 8.8 mg/dL (8.6-10.4); Carbon Dioxide 28 mmol/L (22-30); Chloride 99 mmol/L (96-108); Globulin 3.3 gm/dL (2.2-3.7); Glomerular Filtration Rate 45; Glucose 208 mg/dL (70-105); Potassium 4.1 mmol/L (3.3-5.1); Sodium 136 mmol/L (133-145)
[2024-07-02 02:02] LABS: Appearance,Urine CLEAR (Clear); Bilirubin,Urine Negative (Negative); Color,Urine YELLOW; Culture Indicated,Urine No; Glucose,Urine (UA) Negative (Negative); Ketones,Urine 5 mg/dL (Negative); Leukocyte Esterase,Urine 75 /uL (Negative); Nitrate,Urine Negative (Negative); Protein,Urine Negative (Negative); Specific Gravity,Urine 1.043 (1.000-1.035); Urine Blood Negative (Negative); Urine RBC 1 /hpf (0-3); Urine Squamous Epithelial Cell 5 /hpf (0-4); Urine Transitional Epi Cells < 1 /hpf (0-2); Urine WBC 9 /hpf (0-4); Urobilinogen,Urine Negative
[2024-07-02] MEDS: ALBUTEROL SULFATE 2.5 MG/3 ML NEBULIZER NEB ONE (02:30)
[2024-07-02] MEDS: 0.9 % SODIUM CHLORIDE 1,000 ML IV SCH (04:19)
[2024-07-02] MEDS: ACETAMINOPHEN 1,000 MG/100 ML BAG IV ONE (05:54)
[2024-07-02] MEDS: cefTRIAXone 2 GM in DEXTROSE 5% IN WATER 50 ML IV ONE (06:07)
[2024-07-02] MEDS: AZITHROMYCIN 500 MG in DEXTROSE 5% IN WATER 250 ML IV ONE (06:46)
[2024-07-02] MEDS: PHENobarb/HYOSCY/ATROPINE/SCOP 1 DOSE BOTTLE PO ONE (06:47)
[2024-07-02] MEDS: PANTOPRAZOLE 40 MG VIAL IV ONE (07:21)
[2024-07-02 08:39] LABS: Basophils % (Manual) 1 % (0-2); Eosinophils % (Manual) 5 % (0-7); Lymphocytes % 12 % (15-49); Monocytes % (Manual) 7 % (1-12); Platelet Estimate INCREASED (Normal); RBC Morphology NORMAL (Normal); Segmented Neutrophils % 75 % (38-78)
[2024-07-02 09:07] LABS: INR 1.1 (0.9-1.1); Prothrombin Time 14.9 sec (11.9-14.5)
[2024-07-02] MEDS ORDERED: POTASSIUM CHLORIDE 20 MEQ TABLET PO PRN ×2 (09:08)
[2024-07-02] MEDS ORDERED: DEXTROSE 31 GM ORAL.SUSP PO PRN (09:08)
[2024-07-02] MEDS ORDERED: POTASSIUM CHLORIDE 40 MEQ in DEXTROSE 5% IN WATER 500 ML IV PRN (09:08)
[2024-07-02] MEDS ORDERED: DEXTROSE 50% 50 ML VIAL IV PRN (09:08)
[2024-07-02] MEDS ORDERED: MAGNESIUM SULFATE 2 GM/50 ML BAG IV PRN (09:08)
[2024-07-02] MEDS ORDERED: ONDANSETRON 4 MG/2 ML VIAL IV PRN (09:08)
[2024-07-02] MEDS ORDERED: POLYETHYLENE GLYCOL 3350 17 GM PACKET PO PRN (09:08)
[2024-07-02] MEDS ORDERED: SENNOSIDES 1 TABLET PO PRN (09:08)
[2024-07-02] MEDS: ENOXAPARIN 40 MG/0.4 ML SYRINGE SQ SCH (10:02)
[2024-07-02] MEDS: INSULIN LISPRO 1 UNIT/0.01 ML UNIT SQ SCH (12:08)
[2024-07-02] MEDS: 0.9 % SODIUM CHLORIDE 10 ML SYRINGE IV SCH (12:08)
[2024-07-02] MEDS: CARBIDOPA/LEVODOPA 25/100 TABLET PO SCH (15:14)
[2024-07-02] MEDS: GABAPENTIN 100 MG CAPSULE PO SCH (20:26)
[2024-07-02] MEDS: MELATONIN 3 MG TABLET PO SCH (20:26)
[2024-07-02] MEDS: FAMOTIDINE 20 MG TABLET PO SCH (20:26)
[2024-07-03 06:17] LABS: Basophils # (Auto) 0.06 K/mcL (0.00-0.30); Basophils % (Auto) 0.6 % (0.0-2.0); Eosinophils # (Auto) 0.61 K/mcL (0.00-0.70); Eosinophils % (Auto) 6.1 % (0.0-7.0); Hematocrit 36.2 % (34.1-44.9); Hemoglobin 11.6 g/dL (11.2-15.7); Lymphocytes # (Auto) 1.22 K/mcL (1.50-4.80); Lymphocytes % (Auto) 12.2 % (15.5-49.0); Mean Cell Volume 97.1 fL (80.0-100.0); Mean Platelet Volume 9.8 fL (8.8-12.5); Monocytes # (Auto) 0.79 K/mcL (0.10-0.90); Monocytes % (Auto) 7.9 % (1.0-12.0); Neutrophils % (Auto) 72.8 % (38.0-78.0); Platelet Count 432 K/mcL (140-440); RBC 3.73 M/mcL (3.59-5.38); Red Cell Distribution Width 12.4 % (11.5-14.5)
[2024-07-03 06:22] LABS: ALT/SGPT < 5 U/L (<40); AST/SGOT 17 U/L (<32); Albumin 2.4 gm/dL (3.2-5.2); Alkaline Phosphatase 88 U/L (39-117); Bilirubin,Direct < 0.2 mg/dL (0-0.3); Bilirubin,Total < 0.2 mg/dL (0.1-1.0); Blood Urea Nitrogen 9 mg/dL (8-23); Calcium 8.3 mg/dL (8.6-10.4); Carbon Dioxide 26 mmol/L (22-30); Chloride 101 mmol/L (96-108); Globulin 2.3 gm/dL (2.2-3.7); Glomerular Filtration Rate 58; Glucose 173 mg/dL (70-105); Lactate Dehydrogenase 111 U/L (135-225); Phosphorous 3.2 mg/dL (2.5-4.5); Potassium 3.8 mmol/L (3.3-5.1); Sodium 137 mmol/L (133-145); Triglycerides 94 mg/dL (<150); Uric Acid 5.5 mg/dL (2.5-8.0)
[2024-07-03] MEDS: LEVOTHYROXINE 75 MCG TABLET PO SCH (07:44)
[2024-07-03] MEDS ORDERED: AZITHROMYCIN 500 MG in DEXTROSE 5% IN WATER 250 ML IV SCH (09:00)
[2024-07-03] MEDS: cefTRIAXone 2 GM in DEXTROSE 5% IN WATER 50 ML IV SCH (09:12)
[2024-07-03] MEDS: ACETAMINOPHEN 325 MG TABLET PO PRN (09:13)
[2024-07-03] MEDS: buPROPion 150 MG TAB.XL.24H PO SCH (09:13)
[2024-07-03] MEDS: AZITHROMYCIN 250 MG TABLET PO SCH (09:13)
[2024-07-03] MEDS: LOSARTAN 25 MG TABLET PO SCH (09:13)
[2024-07-03] MEDS: ALLOPURINOL 300 MG TABLET PO SCH (09:13)
[2024-07-03] MEDS: ESCITALOPRAM 20 MG TABLET PO SCH (09:13)
[2024-07-03 10:42] LABS: Estimated Average Glucose(eAG) 272 mg/dL; Hemoglobin A1C 11.1 % Hgb (4.0-6.0)
[2024-07-03] MEDS: IPRATROPIUM/ALBUTEROL 3 ML AMPUL.NEB NEB PRN (12:55)
[2024-07-04] MEDS: traMADol 50 MG TABLET PO PRN (23:53)
[2024-07-05 10:22] LABS: Basophils # (Auto) 0.05 K/mcL (0.00-0.30); Basophils % (Auto) 0.5 % (0.0-2.0); Eosinophils # (Auto) 0.64 K/mcL (0.00-0.70); Lymphocytes # (Auto) 1.04 K/mcL (1.50-4.80); Lymphocytes % (Auto) 9.7 % (15.5-49.0); Mean Corpuscular HGB Conc 31.6 g/dL (31.0-36.0); Mean Platelet Volume 9.9 fL (8.8-12.5); Monocytes # (Auto) 0.85 K/mcL (0.10-0.90); Neutrophils % (Auto) 75.2 % (38.0-78.0); Platelet Count 472 K/mcL (140-440); RBC 3.96 M/mcL (3.59-5.38); Red Cell Distribution Width 12.5 % (11.5-14.5); WBC 10.7 K/mcL (4.5-11.0)
[2024-07-05] MEDS: FUROSEMIDE 40 MG/4 ML VIAL IV ONE (10:39)
[2024-07-05 11:29] LABS: ALT/SGPT 6 U/L (<40); AST/SGOT 25 U/L (<32); Albumin 2.6 gm/dL (3.2-5.2); Alkaline Phosphatase 90 U/L (39-117); Bilirubin,Total < 0.2 mg/dL (0.1-1.0); Blood Urea Nitrogen 10 mg/dL (8-23); Calcium 8.7 mg/dL (8.6-10.4); Carbon Dioxide 26 mmol/L (22-30); Chloride 97 mmol/L (96-108); Globulin 2.5 gm/dL (2.2-3.7); Glomerular Filtration Rate 58; Glucose 213 mg/dL (70-105); Potassium 4.1 mmol/L (3.3-5.1); Sodium 133 mmol/L (133-145)
[2024-07-06 06:49] LABS: Basophils # (Auto) 0.05 K/mcL (0.00-0.30); Basophils % (Auto) 0.5 % (0.0-2.0); Eosinophils # (Auto) 0.67 K/mcL (0.00-0.70); Eosinophils % (Auto) 6.8 % (0.0-7.0); Hematocrit 36.6 % (34.1-44.9); Hemoglobin 11.7 g/dL (11.2-15.7); Lymphocytes # (Auto) 1.18 K/mcL (1.50-4.80); Mean Cell Volume 95.8 fL (80.0-100.0); Mean Platelet Volume 10.3 fL (8.8-12.5); Monocytes # (Auto) 0.83 K/mcL (0.10-0.90); Monocytes % (Auto) 8.5 % (1.0-12.0); Neutrophils % (Auto) 71.7 % (38.0-78.0); Platelet Count 457 K/mcL (140-440); RBC 3.82 M/mcL (3.59-5.38); Red Cell Distribution Width 12.5 % (11.5-14.5); WBC 9.8 K/mcL (4.5-11.0)
[2024-07-06 07:08] LABS: ALT/SGPT < 5 U/L (<40); AST/SGOT 25 U/L (<32); Albumin 2.5 gm/dL (3.2-5.2); Alkaline Phosphatase 91 U/L (39-117); Bilirubin,Direct < 0.2 mg/dL (0-0.3); Bilirubin,Total < 0.2 mg/dL (0.1-1.0); Blood Urea Nitrogen 11 mg/dL (8-23); Calcium 8.8 mg/dL (8.6-10.4); Carbon Dioxide 27 mmol/L (22-30); Chloride 98 mmol/L (96-108); Globulin 2.5 gm/dL (2.2-3.7); Glomerular Filtration Rate 58; Glucose 169 mg/dL (70-105); Lactate Dehydrogenase 122 U/L (135-225); Phosphorous 3.9 mg/dL (2.5-4.5); Potassium 4.3 mmol/L (3.3-5.1); Sodium 135 mmol/L (133-145); Triglycerides 95 mg/dL (<150); Uric Acid 4.4 mg/dL (2.5-8.0)
[2024-07-06] MEDS: FUROSEMIDE 40 MG/4 ML VIAL IV ONE (12:07)
[2024-07-06] MEDS: IPRATROPIUM/ALBUTEROL 3 ML AMPUL.NEB NEB SCH (14:12)
[2024-07-07 06:53] LABS: Basophils # (Auto) 0.05 K/mcL (0.00-0.30); Basophils % (Auto) 0.5 % (0.0-2.0); Eosinophils # (Auto) 0.87 K/mcL (0.00-0.70); Hematocrit 35.2 % (34.1-44.9); Hemoglobin 11.3 g/dL (11.2-15.7); Lymphocytes # (Auto) 1.16 K/mcL (1.50-4.80); Lymphocytes % (Auto) 10.6 % (15.5-49.0); Mean Cell Volume 95.1 fL (80.0-100.0); Mean Corpuscular HGB Conc 32.1 g/dL (31.0-36.0); Mean Platelet Volume 10.4 fL (8.8-12.5); Monocytes # (Auto) 0.98 K/mcL (0.10-0.90); Neutrophils % (Auto) 71.4 % (38.0-78.0); Platelet Count 474 K/mcL (140-440); Red Cell Distribution Width 12.5 % (11.5-14.5); WBC 10.9 K/mcL (4.5-11.0)
[2024-07-07 07:47] LABS: ALT/SGPT < 5 U/L (<40); AST/SGOT 30 U/L (<32); Albumin 2.4 gm/dL (3.2-5.2); Albumin/Globulin Ratio 0.7 (1.0-2.3); Alkaline Phosphatase 105 U/L (39-117); Bilirubin,Direct < 0.2 mg/dL (0-0.3); Bilirubin,Total < 0.2 mg/dL (0.1-1.0); Blood Urea Nitrogen 13 mg/dL (8-23); Calcium 9.1 mg/dL (8.6-10.4); Carbon Dioxide 28 mmol/L (22-30); Chloride 97 mmol/L (96-108); Globulin 3.3 gm/dL (2.2-3.7); Glomerular Filtration Rate 51; Glucose 225 mg/dL (70-105); Lactate Dehydrogenase 205 U/L (135-225); Potassium 3.8 mmol/L (3.3-5.1); Sodium 135 mmol/L (133-145); Triglycerides 86 mg/dL (<150); Uric Acid 4.4 mg/dL (2.5-8.0)
[2024-07-07] MEDS: cefTRIAXone 2 GM VIAL ONE (10:48)
[2024-07-07] MEDS: FUROSEMIDE 40 MG/4 ML VIAL IV ONE ×3 (10:52→17:32)
[2024-07-07] MEDS: methylPREDNISolone SOD SUCC 125 MG/2 ML VIAL IV ONE (17:32)
[2024-07-08 06:57] LABS: Basophils # (Auto) 0.06 K/mcL (0.00-0.30); Basophils % (Auto) 0.7 % (0.0-2.0); Eosinophils # (Auto) 0.46 K/mcL (0.00-0.70); Hematocrit 34.7 % (34.1-44.9); Hemoglobin 11.3 g/dL (11.2-15.7); Lymphocytes # (Auto) 1.15 K/mcL (1.50-4.80); Lymphocytes % (Auto) 12.6 % (15.5-49.0); Mean Cell Volume 95.3 fL (80.0-100.0); Mean Corpuscular HGB Conc 32.6 g/dL (31.0-36.0); Mean Platelet Volume 10.5 fL (8.8-12.5); Monocytes # (Auto) 0.71 K/mcL (0.10-0.90); Monocytes % (Auto) 7.8 % (1.0-12.0); Neutrophils % (Auto) 73.5 % (38.0-78.0); Platelet Count 447 K/mcL (140-440); RBC 3.64 M/mcL (3.59-5.38); Red Cell Distribution Width 12.5 % (11.5-14.5); WBC 9.1 K/mcL (4.5-11.0)
[2024-07-08 07:21] LABS: ALT/SGPT < 5 U/L (<40); AST/SGOT 30 U/L (<32); Albumin 2.6 gm/dL (3.2-5.2); Albumin/Globulin Ratio 0.8 (1.0-2.3); Alkaline Phosphatase 113 U/L (39-117); Bilirubin,Direct < 0.2 mg/dL (0-0.3); Bilirubin,Total < 0.2 mg/dL (0.1-1.0); Blood Urea Nitrogen 15 mg/dL (8-23); Calcium 8.8 mg/dL (8.6-10.4); Carbon Dioxide 29 mmol/L (22-30); Chloride 94 mmol/L (96-108); Globulin 3.3 gm/dL (2.2-3.7); Glomerular Filtration Rate 51; Glucose 267 mg/dL (70-105); Lactate Dehydrogenase 130 U/L (135-225); Phosphorous 3.8 mg/dL (2.5-4.5); Potassium 4.2 mmol/L (3.3-5.1); Sodium 130 mmol/L (133-145); Triglycerides 85 mg/dL (<150); Uric Acid 4.4 mg/dL (2.5-8.0)
[2024-07-08] MEDS ORDERED: guaiFENesin 600 MG TAB.SR.12H PO PRN (10:35)
[2024-07-08] MEDS: methylPREDNISolone SOD SUCC 40 MG/ML VIAL IV SCH (12:44)
[2024-07-08] MEDS: CEFDINIR 300 MG CAPSULE PO SCH (21:19)
[2024-07-08] MEDS: 0.9 % SODIUM CHLORIDE 10 ML SYRINGE IV SCH (21:21)
[2024-07-09 06:50] LABS: Basophils # (Auto) 0.03 K/mcL (0.00-0.30); Basophils % (Auto) 0.3 % (0.0-2.0); Eosinophils # (Auto) 0 K/mcL (0.00-0.70); Eosinophils % (Auto) 0 % (0.0-7.0); Hematocrit 38.7 % (34.1-44.9); Hemoglobin 12.4 g/dL (11.2-15.7); Lymphocytes % (Auto) 9.7 % (15.5-49.0); Mean Cell Volume 95.3 fL (80.0-100.0); Mean Platelet Volume 10.3 fL (8.8-12.5); Monocytes # (Auto) 0.36 K/mcL (0.10-0.90); Monocytes % (Auto) 3.5 % (1.0-12.0); Neutrophils % (Auto) 85.9 % (38.0-78.0); Platelet Count 551 K/mcL (140-440); RBC 4.06 M/mcL (3.59-5.38); Red Cell Distribution Width 12.3 % (11.5-14.5); WBC 10.4 K/mcL (4.5-11.0)
[2024-07-09 07:06] LABS: ALT/SGPT < 5 U/L (<40); AST/SGOT 35 U/L (<32); Albumin 2.9 gm/dL (3.2-5.2); Albumin/Globulin Ratio 0.8 (1.0-2.3); Alkaline Phosphatase 128 U/L (39-117); Bilirubin,Direct < 0.2 mg/dL (0-0.3); Bilirubin,Total < 0.2 mg/dL (0.1-1.0); Blood Urea Nitrogen 22 mg/dL (8-23); Calcium 9.4 mg/dL (8.6-10.4); Carbon Dioxide 27 mmol/L (22-30); Chloride 93 mmol/L (96-108); Globulin 3.8 gm/dL (2.2-3.7); Glomerular Filtration Rate 51; Glucose 386 mg/dL (70-105); Lactate Dehydrogenase 143 U/L (135-225); Phosphorous 3.7 mg/dL (2.5-4.5); Potassium 4.7 mmol/L (3.3-5.1); Sodium 131 mmol/L (133-145); Triglycerides 100 mg/dL (<150); Uric Acid 4.1 mg/dL (2.5-8.0)
[2024-07-09] MEDS: HEPARIN SODIUM,PORCINE/PF 500 UNIT/5 ML SYRINGE IV SCH (11:02)
[2024-07-10] MEDS ORDERED: methylPREDNISolone SOD SUCC 125 MG/2 ML VIAL IV SCH (09:00)
== END 2024-07-09 10:55 | disposition home health service (06) | DRG 193 ==
LOC: ED 20:05 → MEDSUR 07-02 09:04
PROVIDERS: ADMIT Internal Medicine; ATTEND Internal Medicine

== ENCOUNTER 2024-07-21 10:02 | Inpatient (IN) ==
[2024-07-21] MEDS ORDERED: IOPAMIDOL 100 ML BOTTLE IV ONE (10:03)
[2024-07-21 10:43] LABS: Basophils # (Auto) 0.05 K/mcL (0.00-0.30); Basophils % (Auto) 0.4 % (0.0-2.0); Eosinophils # (Auto) 0.75 K/mcL (0.00-0.70); Eosinophils % (Auto) 5.4 % (0.0-7.0); Hemoglobin 12.2 g/dL (11.2-15.7); Lymphocytes # (Auto) 0.91 K/mcL (1.50-4.80); Lymphocytes % (Auto) 6.5 % (15.5-49.0); Mean Cell Volume 94.9 fL (80.0-100.0); Mean Corpuscular HGB Conc 31.3 g/dL (31.0-36.0); Mean Platelet Volume 10.1 fL (8.8-12.5); Monocytes # (Auto) 0.97 K/mcL (0.10-0.90); Monocytes % (Auto) 6.9 % (1.0-12.0); Neutrophils % (Auto) 80.2 % (38.0-78.0); Platelet Count 486 K/mcL (140-440); RBC 4.11 M/mcL (3.59-5.38); Red Cell Distribution Width 12.9 % (11.5-14.5)
[2024-07-21 11:11] LABS: ALT/SGPT 5 U/L (<40); AST/SGOT 49 U/L (<32); Albumin 2.7 gm/dL (3.2-5.2); Albumin/Globulin Ratio 0.8 (1.0-2.3); Alkaline Phosphatase 123 U/L (39-117); Bilirubin,Total 0.3 mg/dL (0.1-1.0); Blood Urea Nitrogen 14 mg/dL (8-23); Calcium 9.1 mg/dL (8.6-10.4); Carbon Dioxide 31 mmol/L (22-30); Chloride 90 mmol/L (96-108); Globulin 3.6 gm/dL (2.2-3.7); Glomerular Filtration Rate 41; Glucose 204 mg/dL (70-105); Potassium 3.9 mmol/L (3.3-5.1); Sodium 132 mmol/L (133-145)
[2024-07-21] MEDS ORDERED: DEXTROSE 31 GM ORAL.SUSP PO PRN (15:30)
[2024-07-21] MEDS ORDERED: DEXTROSE 50% 50 ML VIAL IV PRN (15:30)
[2024-07-21] MEDS ORDERED: IPRATROPIUM/ALBUTEROL 3 ML AMPUL.NEB NEB PRN (15:30)
[2024-07-21] MEDS: INSULIN LISPRO 1 UNIT/0.01 ML UNIT SQ SCH (16:47)
[2024-07-21] MEDS: 0.9 % SODIUM CHLORIDE 10 ML SYRINGE IV SCH (16:47)
[2024-07-21] MEDS: MEROPENEM 1 GM in 0.9 % SODIUM CHLORIDE 50 ML IV SCH (16:53)
[2024-07-21] MEDS: HEPARIN 5,000 UNIT/ML VIAL SQ SCH (21:12)
[2024-07-21] MEDS: DOCUSATE SODIUM 100 MG CAPSULE PO SCH (21:12)
[2024-07-21] MEDS: SENNOSIDES 1 TABLET PO SCH (21:12)
[2024-07-21] MEDS: CARBIDOPA/LEVODOPA 25/100 TABLET PO SCH (21:24)
[2024-07-22] MEDS: guaiFENesin/DEXTROMETHORPHAN 5ML UD CUP PO PRN (00:05)
[2024-07-22] MEDS: ACETAMINOPHEN 325 MG TABLET PO PRN (00:05)
[2024-07-22] MEDS: ONDANSETRON 4 MG/2 ML VIAL IV PRN (04:11)
[2024-07-22 07:10] LABS: ALT/SGPT < 5 U/L (<40); AST/SGOT 47 U/L (<32); Albumin 2.4 gm/dL (3.2-5.2); Albumin/Globulin Ratio 0.7 (1.0-2.3); Alkaline Phosphatase 114 U/L (39-117); Bilirubin,Total 0.2 mg/dL (0.1-1.0); Blood Urea Nitrogen 14 mg/dL (8-23); Carbon Dioxide 30 mmol/L (22-30); Chloride 92 mmol/L (96-108); Globulin 3.5 gm/dL (2.2-3.7); Glomerular Filtration Rate 41; Glucose 213 mg/dL (70-105); Potassium 3.6 mmol/L (3.3-5.1); Sodium 133 mmol/L (133-145)
[2024-07-22 08:43] LABS: Estimated Average Glucose(eAG) 269 mg/dL
[2024-07-22 11:03] LABS: Basophils # (Auto) 0.08 K/mcL (0.00-0.30); Basophils % (Auto) 0.6 % (0.0-2.0); Eosinophils # (Auto) 0.86 K/mcL (0.00-0.70); Eosinophils % (Auto) 6.4 % (0.0-7.0); Hematocrit 37.9 % (34.1-44.9); Hemoglobin 11.8 g/dL (11.2-15.7); Lymphocytes # (Auto) 1.09 K/mcL (1.50-4.80); Lymphocytes % (Auto) 8.2 % (15.5-49.0); Mean Cell Volume 94.5 fL (80.0-100.0); Mean Corpuscular HGB Conc 31.1 g/dL (31.0-36.0); Mean Platelet Volume 10.5 fL (8.8-12.5); Monocytes # (Auto) 1.02 K/mcL (0.10-0.90); Monocytes % (Auto) 7.6 % (1.0-12.0); Neutrophils % (Auto) 76.5 % (38.0-78.0); Platelet Count 488 K/mcL (140-440); RBC 4.01 M/mcL (3.59-5.38); Red Cell Distribution Width 13.2 % (11.5-14.5); WBC 13.4 K/mcL (4.5-11.0)
== END 2024-07-22 13:10 | disposition short-term general hospital (02) | DRG 193 ==
LOC: ED 10:02 → ICU 15:25
PROVIDERS: ADMIT Internal Medicine; ATTEND Internal Medicine